=== PATIENT | female | born 1940 | race Caucasian/White ===

== ENCOUNTER 2017-05-22 10:27 | Emergency (ER) | payer MEDICARE, OTHER ==
[2017-05-22] MEDS: morphine 4 MG/ML VIAL IV (10:28)
[2017-05-22] MEDS ORDERED: HYOSCYAMINE 0.125 MG SUBL TAB SL (11:30)
[2017-05-22] MEDS ORDERED: morphine (DRIP) 100 MG/100 ML 100 ML IV (11:30)
[2017-05-22] MEDS ORDERED: BISACODYL 10 MG SUPP PR (11:30)
[2017-05-22] MEDS ORDERED: HALOPERIDOL 5 MG INJ IM (11:30)
[2017-05-22] MEDS ORDERED: HYDROmorphONE 0.5 MG/0.5 ML SYG IV (11:30)
[2017-05-22] MEDS ORDERED: ACETAMINOPHEN 325 MG TAB PO (11:30)
[2017-05-22] MEDS ORDERED: ONDANSETRON 4 MG INJ IV ×2 (11:30)
[2017-05-22] MEDS ORDERED: ALBUTEROL/IPRATROPIUM (NEB) 3 ML AMP HHN (11:30)
[2017-05-22] MEDS ORDERED: KETOROLAC 15 MG INJ IV (11:30)
[2017-05-22] MEDS ORDERED: LORAZEPAM 2 MG INJ IV ×2 (11:30)
[2017-05-22] MEDS ORDERED: HYDROCODONE/APAP (10/325) TAB PO (12:00)
[2017-05-22] MEDS: morphine (DRIP) 100 MG/100 ML 100 ML IV (12:05)
[2017-05-22] MEDS: ARTIFICIAL TEARS 15 ML OPH BOTH EYES (12:23)
[2017-05-22] MEDS: DIMETHICONE STICK TOP (12:24)
[2017-05-22] MEDS: SOD CHLORIDE 0.9% 1,000 ML IV (12:25)
[2017-05-22] MEDS: SCOPOLAMINE 1.5 MG PATCH TRANSDERM (12:25)
== END 2017-05-22 17:55 | disposition home or self-care (01) ==
LOC: E/R 10:27
DX: R50.9 Fever, unspecified (principal); E03.9 Hypothyroidism, unspecified; R40.2142 Coma scale, eyes open, spontaneous, at arrival to emergency department; R40.2222 Coma scale, best verbal response, incomprehensible words, at arrival to emergency department; R40.2362 Coma scale, best motor response, obeys commands, at arrival to emergency department; N18.6 End stage renal disease; Z66 Do not resuscitate; Z79.82 Long term (current) use of aspirin
CPT/HCPCS: 94002; 99284-25

== ENCOUNTER 2017-05-31 12:53 | Inpatient (IN) | payer MEDICARE, OTHER ==
[2017-05-31 13:37] LABS: ADD MAN DIFF? NO
[2017-05-31 13:45] LABS: ABNORMAL IP MESSAGE 1; BASOPHILS % 0.1 % (0.0-2.0); EOSINOPHILS % 0.2 % (0.0-7.0); HEMATOCRIT 18.7 % (37.0-47.0); LYMPHOCYTES # 1.1 10^3/ul (0.8-2.9); LYMPHOCYTES % 5.1 % (15.0-51.0); MEAN CORPUSCULAR HEMOGLOBIN 27.5 pg (29.0-33.0); MEAN CORPUSCULAR VOLUME 88.6 fl (82.0-101.0); MEAN PLATELET VOLUME 10.9 fl (7.4-10.4); MONOCYTES % 4.6 % (0.0-11.0); NEUTROPHIL # 19.1 10^3/ul (1.6-7.5); NEUTROPHILS % 86.5 % (39.0-77.0); NUCLEATED RED BLOOD CELLS% 0.1 /100WBC (0.0-0.0); PLATELET COUNT 265 10^3/UL (140-415); RED BLOOD COUNT 2.11 10^6/ul (4.20-5.40); RED CELL DISTRIBUTION WIDTH 19.5 % (11.5-14.5)
[2017-05-31 13:47] LABS: HEMOGLOBIN 5.8 g/dl (12.0-16.0); PATH REVIEW? YES; POSITIVE DIFF @See below
[2017-05-31 13:58] LABS: ALANINE AMINOTRANSFERASE 73 IU/L (13-69); ALBUMIN/GLOBULIN RATIO 1.07; ALKALINE PHOSPHATASE 242 IU/L (42-121); ANION GAP 19 (8-16); ASPARTATE AMINO TRANSFERASE 46 IU/L (15-46); BLOOD UREA NITROGEN 103 mg/dl (7-20); CALCIUM 11.4 mg/dl (8.4-10.2); CARBON DIOXIDE 21 mmol/L (21-31); CHLORIDE 92 mmol/L (97-110); CREATININE 1.22 mg/dl (0.44-1.00); GLUCOSE 102 mg/dl (70-220); POTASSIUM 3.6 mmol/L (3.5-5.1); SODIUM 128 mmol/L (135-144); TOTAL PROTEIN 5.8 g/dl (6.1-8.1)
[2017-05-31 14:02] LABS: INR 1.13; PROTIME 14.7 Sec (11.9-14.9); PT RATIO 1.1
[2017-05-31 14:03] LABS: PARTIAL THROMBOPLASTIN TIME 43.1 Sec (25.0-35.0)
[2017-05-31 14:09] LABS: TROPONIN-I < 0.012 ng/ml (0.00-0.12)
[2017-05-31] MEDS: PANTOPRAZOLE IV 80 MG in SOD CHLORIDE 0.9% 100 ML IVPB (14:09)
[2017-05-31] MEDS: PANTOPRAZOLE IV 80 MG in SOD CHLORIDE 0.9% 100 ML IV (14:16)
[2017-05-31] MEDS: CEFEPIME 1GM/50 ML (PMX) 50 ML IVPB (16:47)
[2017-05-31] MEDS: VANCOMYCIN 1 GM (PMX) 250 ML IVPB (17:19)
[2017-05-31] MEDS: SODIUM CHLORIDE 0.9% 1L BAG IV* (17:54)
[2017-05-31] MEDS ORDERED: ACETAMINOPHEN 325 MG TAB PO ×3 (18:00→20:00)
[2017-05-31] MEDS ORDERED: ONDANSETRON 4 MG INJ IV ×3 (18:00→20:00)
[2017-05-31 18:41] LABS: LACTIC ACID 1.7 mmol/L (0.5-2.0)
[2017-05-31] MEDS ORDERED: NACL 0.9% 3 ML SYG IV (20:00)
[2017-05-31 20:18] LABS: LACTATE DEHYDROGENASE 323 IU/L (313-618)
[2017-05-31] MEDS: SOD CHLORIDE 0.9% 1,000 ML IV (20:20)
[2017-05-31] MEDS ORDERED: VANCOMYCIN IV PER PHARMACY XX (20:30)
[2017-05-31] MEDS: DEXTROSE 5%-0.45% NACL 1,000 ML IV (22:21)
[2017-06-01] MEDS: SOD CHLORIDE 0.9% 500 ML IV (00:30)
[2017-06-01] MEDS: CEFEPIME 1GM/50 ML (PMX) 50 ML IVPB ×2 (01:07→08:33)
[2017-06-01] MEDS: NORepinephrine 8MG/250 ML (PMX 250 ML IV (02:29)
[2017-06-01] MEDS: SOD CHLORIDE 0.9% 1,000 ML IV (04:38)
[2017-06-01 05:37] LABS: ADD MAN DIFF? NO
[2017-06-01 05:38] LABS: WHITE BLOOD COUNT 34.1 10^3/ul (4.8-10.8)
[2017-06-01 05:38] LABS: ABNORMAL IP MESSAGE 1; BASOPHIL # 0.1 10^3/ul (0.0-0.1); BASOPHILS % 0.1 % (0.0-2.0); HEMATOCRIT 23.7 % (37.0-47.0); HEMOGLOBIN 7.9 g/dl (12.0-16.0); LYMPHOCYTES # 1.6 10^3/ul (0.8-2.9); LYMPHOCYTES % 4.6 % (15.0-51.0); MEAN CORPUSCULAR HEMOGLOBIN 28.5 pg (29.0-33.0); MEAN CORPUSCULAR HGB CONC 33.3 g/dl (32.0-37.0); MEAN CORPUSCULAR VOLUME 85.6 fl (82.0-101.0); MEAN PLATELET VOLUME 10.6 fl (7.4-10.4); MONOCYTE # 1.2 10^3/ul (0.3-0.9); MONOCYTES % 3.5 % (0.0-11.0); NEUTROPHIL # 30.4 10^3/ul (1.6-7.5); PLATELET COUNT 306 10^3/UL (140-415); RED BLOOD COUNT 2.77 10^6/ul (4.20-5.40); RED CELL DISTRIBUTION WIDTH 17.3 % (11.5-14.5)
[2017-06-01 05:40] LABS: POSITIVE DIFF @See below
[2017-06-01 06:12] LABS: ALANINE AMINOTRANSFERASE 67 IU/L (13-69); ALBUMIN 2.8 g/dl (3.3-4.9); ALKALINE PHOSPHATASE 261 IU/L (42-121); ANION GAP 20 (8-16); ASPARTATE AMINO TRANSFERASE 51 IU/L (15-46); BLOOD UREA NITROGEN 107 mg/dl (7-20); CARBON DIOXIDE 16 mmol/L (21-31); CHLORIDE 98 mmol/L (97-110); CREATININE 1.09 mg/dl (0.44-1.00); GLUCOSE 92 mg/dl (70-220); SODIUM 131 mmol/L (135-144); TOTAL PROTEIN 5.6 g/dl (6.1-8.1)
[2017-06-01] MEDS: PANTOPRAZOLE 40 MG INJ IV (06:21)
[2017-06-01 08:21] LABS: AADO2 Arterial 165.7 mmHg (7.0-24.0); Allen Test ACCEPTAB; Arterial Base Excess -11.8 mmol/L (-3.0-3); Arterial Blood Gas Oxygen Sat 93.2 mmHG (95.0-100.0); Arterial COHb 0.1 % (0.0-3.0); Arterial Fraction of Oxyhgb 92.6 % (93.0-99.0); Arterial HCO3 14.7 mmol/L (22.0-26.0); Arterial MetHb 0.5 % (0.0-1.5); Arterial Total Hemglobin 8.4 g/dl (12.0-18.0); Arterial pCO2 35.9 mmhg (35-45); MODE VENT - AC; Site Right Radial
[2017-06-01 10:21] LABS: HAAIG REFLEX REFLEX FILED
[2017-06-01] MEDS ORDERED: ALBUMIN HUMAN 25% 100 ML IV (11:00)
[2017-06-01 12:14] LABS: IMMEDIATE SPIN CROSSMATCH 1 4
[2017-06-01] MEDS ORDERED: VANCOMYCIN 1.5 GM in SOD CHLORIDE 0.9% 250 ML IVPB (13:00)
[2017-06-01 14:22] LABS: PATH REVIEW CH
[2017-06-01] MEDS ORDERED: TOBRAMYCIN IV PER PHARMACY XX (14:30)
[2017-06-01] MEDS: HEPARIN 1000 UNITS/ML 10 ML INJ CATHETER (14:38)
[2017-06-01 15:23] LABS: LACTIC ACID < 0.5 mmol/L (0.5-2.0)
[2017-06-01] MEDS: TOBRAMYCIN 140 MG in DEXTROSE 5% 100 ML IVPB (15:30)
[2017-06-01] MEDS: PIPER-TAZO 2.25 GM (PMX) 50 ML IVPB ×2 (15:32→21:48)
[2017-06-01] MEDS: DEXTROSE 5%-0.45% NACL 1,000 ML IV (15:37)
[2017-06-01] MEDS: LINEZOLID 600 MG/D5W (PMX) 300 ML IVPB (16:55)
[2017-06-01 19:30] LABS: HEPATITIS B SURFACE ANTIGEN NEGATIVE (NEGATIVE)
[2017-06-01 19:48] LABS: HEPATITIS B CORE ANTIBODY NEGATIVE (NEGATIVE); HEPATITIS C VIRAL ANTIBODY NEGATIVE (NEGATIVE)
[2017-06-02] MEDS: LINEZOLID 600 MG/D5W (PMX) 300 ML IVPB ×3 (01:06→21:22)
[2017-06-02] MEDS: PIPER-TAZO 2.25 GM (PMX) 50 ML IVPB ×3 (05:22→21:30)
[2017-06-02] MEDS: PANTOPRAZOLE 40 MG INJ IV (05:22)
[2017-06-02 06:02] LABS: ADD MAN DIFF? NO
[2017-06-02 06:07] LABS: WHITE BLOOD COUNT 14.3 10^3/ul (4.8-10.8)
[2017-06-02 06:07] LABS: BASOPHILS % 0.2 % (0.0-2.0); EOSINOPHILS % 0.3 % (0.0-7.0); HEMATOCRIT 28.8 % (37.0-47.0); HEMOGLOBIN 9.6 g/dl (12.0-16.0); LYMPHOCYTES % 7.3 % (15.0-51.0); MEAN CORPUSCULAR HGB CONC 33.3 g/dl (32.0-37.0); MEAN PLATELET VOLUME 10.2 fl (7.4-10.4); MONOCYTE # 0.6 10^3/ul (0.3-0.9); MONOCYTES % 4.3 % (0.0-11.0); NEUTROPHIL # 12.2 10^3/ul (1.6-7.5); NEUTROPHILS % 85.1 % (39.0-77.0); NUCLEATED RED BLOOD CELLS% 0.1 /100WBC (0.0-0.0); PLATELET COUNT 227 10^3/UL (140-415); RED BLOOD COUNT 3.31 10^6/ul (4.20-5.40); RED CELL DISTRIBUTION WIDTH 17.3 % (11.5-14.5)
[2017-06-02 06:27] LABS: ADD UMIC YES; UR AMORPHOUS CRYSTAL FEW /HPF (NONE SEEN); UR ASCORBIC ACID NEGATIVE (NEGATIVE); UR BACTERIA FEW /HPF (NONE SEEN); UR BILIRUBIN (Dip) NEGATIVE (NEGATIVE); UR BLOOD (Dip) 1+ mg/dL (NEGATIVE); UR CLARITY CLOUDY (CLEAR); UR COLOR YELLOW (YELLOW); UR GLUCOSE (Dip) NEGATIVE (NEGATIVE); UR KETONES (Dip) NEGATIVE (NEGATIVE); UR LEUKOCYTE ESTERASE (Dip) 3+ Leu/ul (NEGATIVE); UR NITRITE (Dip) NEGATIVE (NEGATIVE); UR NONSQUAMOUS EPITHELIAL CELL 3 /HPF (NONE SEEN); UR RBC 5 /HPF (0-5); UR SPECIFIC GRAVITY (Dip) 1.011 (1.003-1.030); UR SQUAMOUS EPITHELIAL CELL FEW /HPF (FEW); UR TOTAL PROTEIN (Dip) 2+ mg/dl (NEGATIVE); UR UROBILINOGEN (Dip) NEGATIVE (NEGATIVE); UR WBC 72 /HPF (0-5)
[2017-06-02 06:40] LABS: OCCULT BLOOD STOOL POSITIVE (NEGATIVE)
[2017-06-02 06:45] LABS: ANION GAP 17 (8-16); BLOOD UREA NITROGEN 57 mg/dl (7-20); CALCIUM 8.6 mg/dl (8.4-10.2); CARBON DIOXIDE 21 mmol/L (21-31); CHLORIDE 99 mmol/L (97-110); CREATININE 0.74 mg/dl (0.44-1.00); GLUCOSE 88 mg/dl (70-220); POTASSIUM 3.5 mmol/L (3.5-5.1); SODIUM 133 mmol/L (135-144)
[2017-06-02 08:05] LABS: AADO2 Arterial 151.4 mmHg (7.0-24.0); Allen Test ACCEPTAB; Arterial Base Excess -2.6 mmol/L (-3.0-3); Arterial Blood Gas Oxygen Sat 96.5 mmHG (95.0-100.0); Arterial COHb 0.3 % (0.0-3.0); Arterial Fraction of Oxyhgb 95.9 % (93.0-99.0); Arterial HCO3 22.4 mmol/L (22.0-26.0); Arterial MetHb 0.3 % (0.0-1.5); Arterial Total Hemglobin 10.4 g/dl (12.0-18.0); Arterial pCO2 39.3 mmhg (35-45); MODE VENT - AC; Site Right Radial
[2017-06-02] MEDS ORDERED: CEFEPIME 1GM/50 ML (PMX) 50 ML IVPB (09:00)
[2017-06-02 09:37] LABS: LACTIC ACID 0.8 mmol/L (0.5-2.0)
[2017-06-02] MEDS: HEPARIN 1000 UNITS/ML 10 ML INJ CATHETER (11:07)
[2017-06-02] MEDS: TOBRAMYCIN 100 MG in DEXTROSE 5% 100 ML IVPB (14:00)
[2017-06-02] MEDS: DEXTROSE 5%-0.45% NACL 1,000 ML IV (14:47)
[2017-06-02] MEDS: PEG/ELECTROLYTES 4L BTL PO (14:56)
[2017-06-02] MEDS ORDERED: NORepinephrine 16 MG in SOD CHLORIDE 0.9% 484 ML IV (15:00)
[2017-06-02] MEDS: LORAZEPAM 2 MG INJ IV (21:29)
[2017-06-03 06:18] LABS: INR 1.07; PT RATIO 1.1
[2017-06-03 06:19] LABS: PARTIAL THROMBOPLASTIN TIME 26.2 Sec (25.0-35.0)
[2017-06-03 06:24] LABS: ANION GAP 17 (8-16); BLOOD UREA NITROGEN 27 mg/dl (7-20); CALCIUM 8.3 mg/dl (8.4-10.2); CARBON DIOXIDE 27 mmol/L (21-31); CHLORIDE 97 mmol/L (97-110); CREATININE 0.51 mg/dl (0.44-1.00); GLUCOSE 74 mg/dl (70-220); POTASSIUM 3.3 mmol/L (3.5-5.1); SODIUM 138 mmol/L (135-144)
[2017-06-03] MEDS: PANTOPRAZOLE 40 MG INJ IV (06:38)
[2017-06-03] MEDS: PIPER-TAZO 2.25 GM (PMX) 50 ML IVPB ×3 (06:38→21:32)
[2017-06-03] MEDS: LINEZOLID 600 MG/D5W (PMX) 300 ML IVPB ×2 (08:26→21:32)
[2017-06-03 09:05] LABS: ADD MAN DIFF? NO
[2017-06-03 09:12] LABS: BASOPHILS % 0.3 % (0.0-2.0); EOSINOPHILS # 0.1 10^3/ul (0.0-0.5); EOSINOPHILS % 0.6 % (0.0-7.0); HEMOGLOBIN 10.4 g/dl (12.0-16.0); LYMPHOCYTES # 1.2 10^3/ul (0.8-2.9); LYMPHOCYTES % 9.9 % (15.0-51.0); MEAN CORPUSCULAR HEMOGLOBIN 28.7 pg (29.0-33.0); MEAN CORPUSCULAR HGB CONC 33.5 g/dl (32.0-37.0); MEAN CORPUSCULAR VOLUME 85.6 fl (82.0-101.0); MEAN PLATELET VOLUME 9.4 fl (7.4-10.4); MONOCYTE # 0.7 10^3/ul (0.3-0.9); MONOCYTES % 6.1 % (0.0-11.0); NEUTROPHIL # 9.4 10^3/ul (1.6-7.5); NEUTROPHILS % 80.6 % (39.0-77.0); PLATELET COUNT 235 10^3/UL (140-415); RED BLOOD COUNT 3.62 10^6/ul (4.20-5.40); RED CELL DISTRIBUTION WIDTH 17.2 % (11.5-14.5)
[2017-06-03 09:12] LABS: WHITE BLOOD COUNT 11.7 10^3/ul (4.8-10.8)
[2017-06-03 09:31] LABS: ALANINE AMINOTRANSFERASE 139 IU/L (13-69); ALBUMIN 2.8 g/dl (3.3-4.9); ALKALINE PHOSPHATASE 177 IU/L (42-121); ANION GAP 25 (8-16); ASPARTATE AMINO TRANSFERASE 132 IU/L (15-46); BLOOD UREA NITROGEN 26 mg/dl (7-20); CALCIUM 7.6 mg/dl (8.4-10.2); CARBON DIOXIDE 16 mmol/L (21-31); CHLORIDE 94 mmol/L (97-110); GLUCOSE 97 mg/dl (70-220); SODIUM 132 mmol/L (135-144); TOTAL PROTEIN 5.6 g/dl (6.1-8.1)
[2017-06-03] MEDS: POTASSIUM CHLORIDE 50 ML IVPB ×3 (11:11→15:20)
[2017-06-03] MEDS: DEXTROSE 5%-0.45% NACL 1,000 ML IV ×2 (15:22)
[2017-06-03] MEDS ORDERED: PROPOFOL 20 ML (19:17)
[2017-06-04 05:34] LABS: ADD MAN DIFF? NO; BASOPHIL # 0.1 10^3/ul (0.0-0.1); BASOPHILS % 0.6 % (0.0-2.0); EOSINOPHILS # 0.1 10^3/ul (0.0-0.5); EOSINOPHILS % 0.9 % (0.0-7.0); HEMATOCRIT 32.7 % (37.0-47.0); LYMPHOCYTES # 1.2 10^3/ul (0.8-2.9); LYMPHOCYTES % 10.2 % (15.0-51.0); MEAN CORPUSCULAR HEMOGLOBIN 29.5 pg (29.0-33.0); MEAN CORPUSCULAR HGB CONC 33.6 g/dl (32.0-37.0); MEAN CORPUSCULAR VOLUME 87.7 fl (82.0-101.0); MEAN PLATELET VOLUME 9.7 fl (7.4-10.4); MONOCYTE # 0.8 10^3/ul (0.3-0.9); NEUTROPHIL # 9.5 10^3/ul (1.6-7.5); NEUTROPHILS % 78.8 % (39.0-77.0); PLATELET COUNT 235 10^3/UL (140-415); RED BLOOD COUNT 3.73 10^6/ul (4.20-5.40)
[2017-06-04 05:34] LABS: WHITE BLOOD COUNT 12.1 10^3/ul (4.8-10.8)
[2017-06-04] MEDS: PANTOPRAZOLE 40 MG INJ IV (05:47)
[2017-06-04] MEDS: PIPER-TAZO 2.25 GM (PMX) 50 ML IVPB ×3 (05:48→21:59)
[2017-06-04 06:05] LABS: MAGNESIUM 1.9 mg/dl (1.7-2.5)
[2017-06-04 06:18] LABS: ALANINE AMINOTRANSFERASE 153 IU/L (13-69); ALBUMIN 2.8 g/dl (3.3-4.9); ALBUMIN/GLOBULIN RATIO 1.03; ALKALINE PHOSPHATASE 180 IU/L (42-121); ANION GAP 18 (8-16); ASPARTATE AMINO TRANSFERASE 172 IU/L (15-46); BLOOD UREA NITROGEN 30 mg/dl (7-20); CALCIUM 8.6 mg/dl (8.4-10.2); CARBON DIOXIDE 23 mmol/L (21-31); CHLORIDE 97 mmol/L (97-110); CREATININE 0.61 mg/dl (0.44-1.00); GLUCOSE 96 mg/dl (70-220); SODIUM 134 mmol/L (135-144); TOTAL PROTEIN 5.5 g/dl (6.1-8.1)
[2017-06-04] MEDS: LINEZOLID 600 MG/D5W (PMX) 300 ML IVPB ×2 (08:28→20:14)
[2017-06-04] MEDS: DEXTROSE 5%-0.45% NACL 1,000 ML IV (08:35)
[2017-06-04] MEDS ORDERED: GLUCOSE GEL 15 GRAM TUBE BUCCAL (09:00)
[2017-06-04] MEDS: Insulin NOVOLOG SS MILD Algorithm (NPO/TPN/ENTERAL FEEDS) SC ×4 (09:00→20:14)
[2017-06-04] MEDS ORDERED: DEXTROSE 50% 50 ML SYRINGE IV ×2 (09:00)
[2017-06-04] MEDS ORDERED: INSULIN ASPART [NOVOLOG] 3 ML PEN SC (09:00)
[2017-06-04] MEDS ORDERED: GLUCAGON 1 MG INJ IM (09:00)
[2017-06-04] MEDS ORDERED: GLUCOSE GEL 15 GRAM TUBE PO ×2 (09:00)
[2017-06-04] MEDS: HEPARIN 1000 UNITS/ML 10 ML INJ CATHETER (18:37)
[2017-06-04] MEDS: morphine 2 MG INJ IV (19:43)
[2017-06-05] MEDS: Insulin NOVOLOG SS MILD Algorithm (NPO/TPN/ENTERAL FEEDS) SC ×6 (00:37→20:41)
[2017-06-05] MEDS: ACCU-CHEK XX (02:00)
[2017-06-05] MEDS: DEXTROSE 5%-0.45% NACL 1,000 ML IV ×2 (02:00→09:34)
[2017-06-05] MEDS: PIPER-TAZO 2.25 GM (PMX) 50 ML IVPB ×3 (05:28→23:27)
[2017-06-05] MEDS: PANTOPRAZOLE 40 MG INJ IV (05:28)
[2017-06-05 05:38] LABS: ADD MAN DIFF? NO
[2017-06-05 06:05] LABS: INR 1.03; PROTIME 13.6 Sec (11.9-14.9); PT RATIO 1.1
[2017-06-05 06:10] LABS: ALANINE AMINOTRANSFERASE 105 IU/L (13-69); ALBUMIN 2.2 g/dl (3.3-4.9); ALBUMIN/GLOBULIN RATIO 0.81; ALKALINE PHOSPHATASE 219 IU/L (42-121); ANION GAP 14 (8-16); ASPARTATE AMINO TRANSFERASE 74 IU/L (15-46); BLOOD UREA NITROGEN 25 mg/dl (7-20); CALCIUM 8.3 mg/dl (8.4-10.2); CARBON DIOXIDE 25 mmol/L (21-31); CHLORIDE 98 mmol/L (97-110); CREATININE 0.47 mg/dl (0.44-1.00); GLUCOSE 98 mg/dl (70-220); POTASSIUM 3.4 mmol/L (3.5-5.1); SODIUM 134 mmol/L (135-144); TOTAL PROTEIN 4.9 g/dl (6.1-8.1)
[2017-06-05 08:20] LABS: BASOPHILS % 0.4 % (0.0-2.0); EOSINOPHILS # 0.1 10^3/ul (0.0-0.5); EOSINOPHILS % 0.8 % (0.0-7.0); HEMATOCRIT 29.3 % (37.0-47.0); HEMOGLOBIN 9.8 g/dl (12.0-16.0); LYMPHOCYTES # 1.1 10^3/ul (0.8-2.9); MEAN CORPUSCULAR HEMOGLOBIN 29.3 pg (29.0-33.0); MEAN CORPUSCULAR HGB CONC 33.4 g/dl (32.0-37.0); MEAN CORPUSCULAR VOLUME 87.7 fl (82.0-101.0); MEAN PLATELET VOLUME 9.5 fl (7.4-10.4); MONOCYTE # 0.7 10^3/ul (0.3-0.9); MONOCYTES % 6.7 % (0.0-11.0); NEUTROPHIL # 8.8 10^3/ul (1.6-7.5); NEUTROPHILS % 80.5 % (39.0-77.0); PLATELET COUNT 210 10^3/UL (140-415); RED BLOOD COUNT 3.34 10^6/ul (4.20-5.40); RED CELL DISTRIBUTION WIDTH 16.8 % (11.5-14.5)
[2017-06-05 08:20] LABS: WHITE BLOOD COUNT 10.9 10^3/ul (4.8-10.8)
[2017-06-05] MEDS: POTASSIUM CHLORIDE 20 MEQ POWDER FOR ORAL SOLN GTB (11:41)
[2017-06-05] MEDS: TOBRAMYCIN 100 MG in DEXTROSE 5% 100 ML IVPB (12:39)
[2017-06-05] MEDS: hydrALAzine 20 MG INJ IV (20:41)
[2017-06-05] MEDS: BALSAM PERU/CASTOR OIL 60 GM TUBE TOP (20:41)
[2017-06-05] MEDS ORDERED: ACETAMINOPHEN 650MG/20.3ML CUP PO (23:30)
[2017-06-05] MEDS ORDERED: GUAIFENESIN/DM 5ML CUP GTB (23:30)
[2017-06-05] MEDS ORDERED: ONDANSETRON 4 MG TAB GTB (23:30)
[2017-06-05] MEDS ORDERED: HYDROCODONE/HOMATROPINE 5ML CUP GTB (23:30)
[2017-06-05] MEDS: BISACODYL 10 MG SUPP PR (23:47)
[2017-06-06] MEDS: Insulin NOVOLOG SS MILD Algorithm (NPO/TPN/ENTERAL FEEDS) SC ×6 (01:00→20:15)
[2017-06-06] MEDS: ACCU-CHEK XX (01:09)
[2017-06-06] MEDS: DEXTROSE 5%-0.45% NACL 1,000 ML IV (05:28)
[2017-06-06] MEDS: LANSOPRAZOLE 30 MG CAP GTB ×2 (05:28→18:12)
[2017-06-06] MEDS: PIPER-TAZO 2.25 GM (PMX) 50 ML IVPB (05:29)
[2017-06-06] MEDS: hydrALAzine 20 MG INJ IV (05:29)
[2017-06-06 05:54] LABS: ADD MAN DIFF? NO
[2017-06-06 06:42] LABS: ALANINE AMINOTRANSFERASE 80 IU/L (13-69); ALBUMIN 2.3 g/dl (3.3-4.9); ALBUMIN/GLOBULIN RATIO 0.79; ALKALINE PHOSPHATASE 190 IU/L (42-121); ANION GAP 17 (8-16); ASPARTATE AMINO TRANSFERASE 39 IU/L (15-46); BLOOD UREA NITROGEN 39 mg/dl (7-20); CARBON DIOXIDE 24 mmol/L (21-31); CHLORIDE 96 mmol/L (97-110); CREATININE 0.62 mg/dl (0.44-1.00); GLUCOSE 85 mg/dl (70-220); POTASSIUM 3.6 mmol/L (3.5-5.1); SODIUM 133 mmol/L (135-144); TOTAL PROTEIN 5.2 g/dl (6.1-8.1)
[2017-06-06 06:51] LABS: BASOPHIL # 0.1 10^3/ul (0.0-0.1); BASOPHILS % 0.4 % (0.0-2.0); EOSINOPHILS # 0.2 10^3/ul (0.0-0.5); EOSINOPHILS % 1.3 % (0.0-7.0); HEMATOCRIT 30.1 % (37.0-47.0); LYMPHOCYTES % 8.5 % (15.0-51.0); MEAN CORPUSCULAR HEMOGLOBIN 29.2 pg (29.0-33.0); MEAN CORPUSCULAR HGB CONC 33.2 g/dl (32.0-37.0); MEAN PLATELET VOLUME 10.5 fl (7.4-10.4); MONOCYTE # 0.7 10^3/ul (0.3-0.9); MONOCYTES % 5.6 % (0.0-11.0); NEUTROPHIL # 9.7 10^3/ul (1.6-7.5); NEUTROPHILS % 82.7 % (39.0-77.0); PLATELET COUNT 182 10^3/UL (140-415); POSITIVE DIFF @See below; RED BLOOD COUNT 3.42 10^6/ul (4.20-5.40); RED CELL DISTRIBUTION WIDTH 16.7 % (11.5-14.5)
[2017-06-06 06:51] LABS: WHITE BLOOD COUNT 11.7 10^3/ul (4.8-10.8)
[2017-06-06] MEDS: LEVOTHYROXINE 100 MCG TAB GTB (07:00)
[2017-06-06] MEDS: SENNA TAB GTB ×2 (08:52→20:13)
[2017-06-06] MEDS: ASPIRIN 81 MG TAB GTB (08:52)
[2017-06-06] MEDS: MULTIVIT/CA CARB/B CMPLX/FA TAB GTB (08:52)
[2017-06-06] MEDS: ASCORBIC ACID 500 MG TAB GTB (08:52)
[2017-06-06] MEDS: FLUOXETINE 20 MG CAP GTB (08:52)
[2017-06-06] MEDS: ENOXAPARIN 30 MG/0.3 ML SYG SC (08:53)
[2017-06-06] MEDS: HYPROMELLOSE 0.5% 15 ML OPH BOTH EYES ×2 (08:58→20:12)
[2017-06-06] MEDS ORDERED: NON-FORMULARY/PATIENT OWN MED (Protein Supplement (Promod) 30 ML) GTB (09:00)
[2017-06-06] MEDS: BALSAM PERU/CASTOR OIL 60 GM TUBE TOP (09:01)
[2017-06-06] MEDS: ACETYLCYSTEINE 20% 4 ML VIAL NEB ×2 (13:35→20:29)
[2017-06-06] MEDS ORDERED: ALBUMIN HUMAN 25% 100 ML IV (15:30)
[2017-06-06] MEDS: BISACODYL 10 MG SUPP PR (20:13)
[2017-06-07] MEDS: HEPARIN 1000 UNITS/ML 10 ML INJ CATHETER (00:30)
[2017-06-07] MEDS: Insulin NOVOLOG SS MILD Algorithm (NPO/TPN/ENTERAL FEEDS) SC ×4 (01:00→13:00)
[2017-06-07] MEDS: ACCU-CHEK XX (02:34)
[2017-06-07] MEDS: DEXTROSE 5%-0.45% NACL 1,000 ML IV (02:35)
[2017-06-07] MEDS: LANSOPRAZOLE 30 MG CAP GTB ×2 (05:45→18:09)
[2017-06-07 05:46] LABS: ADD MAN DIFF? NO
[2017-06-07 05:58] LABS: BASOPHIL # 0.1 10^3/ul (0.0-0.1); BASOPHILS % 0.5 % (0.0-2.0); EOSINOPHILS # 0.1 10^3/ul (0.0-0.5); EOSINOPHILS % 1.2 % (0.0-7.0); HEMATOCRIT 28.4 % (37.0-47.0); HEMOGLOBIN 9.5 g/dl (12.0-16.0); LYMPHOCYTES # 1.1 10^3/ul (0.8-2.9); MEAN CORPUSCULAR HEMOGLOBIN 29.1 pg (29.0-33.0); MEAN CORPUSCULAR HGB CONC 33.5 g/dl (32.0-37.0); MEAN CORPUSCULAR VOLUME 86.9 fl (82.0-101.0); MEAN PLATELET VOLUME 9.7 fl (7.4-10.4); MONOCYTE # 0.5 10^3/ul (0.3-0.9); MONOCYTES % 4.9 % (0.0-11.0); NEUTROPHIL # 8.8 10^3/ul (1.6-7.5); PLATELET COUNT 183 10^3/UL (140-415); RED BLOOD COUNT 3.27 10^6/ul (4.20-5.40); RED CELL DISTRIBUTION WIDTH 16.6 % (11.5-14.5)
[2017-06-07 05:58] LABS: WHITE BLOOD COUNT 10.7 10^3/ul (4.8-10.8)
[2017-06-07 07:12] LABS: ANION GAP 13 (8-16); BLOOD UREA NITROGEN 28 mg/dl (7-20); CALCIUM 8.9 mg/dl (8.4-10.2); CARBON DIOXIDE 26 mmol/L (21-31); CHLORIDE 97 mmol/L (97-110); CREATININE 0.52 mg/dl (0.44-1.00); GLUCOSE 98 mg/dl (70-220); POTASSIUM 3.5 mmol/L (3.5-5.1); SODIUM 132 mmol/L (135-144)
[2017-06-07] MEDS: LEVOTHYROXINE 100 MCG TAB GTB (07:58)
[2017-06-07] MEDS: ACETYLCYSTEINE 20% 4 ML VIAL NEB (09:00)
[2017-06-07] MEDS: FLUOXETINE 20 MG CAP GTB (09:03)
[2017-06-07] MEDS: ASPIRIN 81 MG TAB GTB (09:03)
[2017-06-07] MEDS: MULTIVIT/CA CARB/B CMPLX/FA TAB GTB (09:03)
[2017-06-07] MEDS: SENNA TAB GTB (09:03)
[2017-06-07] MEDS: ASCORBIC ACID 500 MG TAB GTB (09:03)
[2017-06-07] MEDS: HYPROMELLOSE 0.5% 15 ML OPH BOTH EYES (09:04)
[2017-06-07] MEDS: BALSAM PERU/CASTOR OIL 60 GM TUBE TOP (09:04)
[2017-06-07] MEDS: ENOXAPARIN 30 MG/0.3 ML SYG SC (09:09)
[2017-06-07] MEDS: TOBRAMYCIN 100 MG in DEXTROSE 5% 100 ML IVPB (11:42)
[2017-06-07] MEDS: INSULIN ASPART [NOVOLOG] 3 ML PEN SC (18:00)
== END 2017-06-07 19:50 | DRG 870 ==
LOC: ICU 17:40 → E/R 12:53 → ICU 06-01 01:35
PROC: 0DBH8ZZ Excision of Cecum, Via Natural or Artificial Opening Endoscopic (ICD-10-PCS; 2017-06-03 16:30)
PROC: 0DB68ZX Excision of Stomach, Via Natural or Artificial Opening Endoscopic, Diagnostic (ICD-10-PCS; 2017-06-03 16:30)
PROC: 5A1955Z Respiratory Ventilation, Greater than 96 Consecutive Hours (ICD-10-PCS; principal; 2017-06-03 20:20)
PROC: 5A1D70Z Performance of Urinary Filtration, Intermittent, Less than 6 Hours Per Day (ICD-10-PCS; 2017-06-03 20:20)
PROC: 4A133R1 Monitoring of Arterial Saturation, Peripheral, Percutaneous Approach (ICD-10-PCS; 2017-06-03 20:20)
PROC: 30233N1 Transfusion of Nonautologous Red Blood Cells into Peripheral Vein, Percutaneous Approach (ICD-10-PCS; 2017-06-03 20:20)
DX: A41.9 Sepsis, unspecified organism (principal); L89.154 Pressure ulcer of sacral region, stage 4; N18.6 End stage renal disease; R65.21 Severe sepsis with septic shock; J18.9 Pneumonia, unspecified organism; G92 Toxic encephalopathy; J96.11 Chronic respiratory failure with hypoxia; G82.20 Paraplegia, unspecified; Z99.11 Dependence on respirator [ventilator] status; I12.0 Hypertensive chronic kidney disease with stage 5 chronic kidney disease or end stage renal disease; D62 Acute posthemorrhagic anemia; E87.2 Acidosis; I50.32 Chronic diastolic (congestive) heart failure; Z93.0 Tracheostomy status; Z74.01 Bed confinement status; E03.9 Hypothyroidism, unspecified; I48.0 Paroxysmal atrial fibrillation; E66.9 Obesity, unspecified; Z68.36 Body mass index [BMI] 36.0-36.9, adult; E11.22 Type 2 diabetes mellitus with diabetic chronic kidney disease; R13.10 Dysphagia, unspecified; Z93.1 Gastrostomy status; I25.10 Atherosclerotic heart disease of native coronary artery without angina pectoris; Z99.2 Dependence on renal dialysis; I27.20 Pulmonary hypertension, unspecified; I07.1 Rheumatic tricuspid insufficiency; K29.50 Unspecified chronic gastritis without bleeding; K63.5 Polyp of colon; K64.4 Residual hemorrhoidal skin tags; K25.9 Gastric ulcer, unspecified as acute or chronic, without hemorrhage or perforation; Z79.82 Long term (current) use of aspirin; Z79.4 Long term (current) use of insulin
CPT/HCPCS: 36430; 36600; 71045; 80048; 80053; 81001; 82270; 82803; 82962; 83036; 83605; 83615; 83735; 84443; 84484; 85025; 85610; 85730; 86704; 86709; 86803; 86850; 86900; 86901; 86920; 87040; 87070; 87081; 87086; 87340; 87400; 88305; 88312; 89220; 90935; 93005; 93970; 94002; 94003; 94640; 96365; 96366; 96368; 99291-25

== ENCOUNTER 2017-06-13 22:43 | Inpatient (IN) | payer MEDICARE, OTHER ==
[2017-06-13 23:28] LABS: ADD MAN DIFF? NO
[2017-06-13] MEDS: SOD CHLORIDE 0.9% 1,000 ML IV (23:30)
[2017-06-13 23:32] LABS: WHITE BLOOD COUNT 9.2 10^3/ul (4.8-10.8)
[2017-06-13 23:32] LABS: ABNORMAL IP MESSAGE 1; BASOPHILS % 0.1 % (0.0-2.0); EOSINOPHILS % 0.3 % (0.0-7.0); HEMATOCRIT 17.1 % (37.0-47.0); LYMPHOCYTES # 0.8 10^3/ul (0.8-2.9); LYMPHOCYTES % 8.5 % (15.0-51.0); MEAN CORPUSCULAR HEMOGLOBIN 29.7 pg (29.0-33.0); MEAN CORPUSCULAR HGB CONC 32.2 g/dl (32.0-37.0); MEAN CORPUSCULAR VOLUME 92.4 fl (82.0-101.0); MEAN PLATELET VOLUME 10.9 fl (7.4-10.4); MONOCYTE # 0.4 10^3/ul (0.3-0.9); MONOCYTES % 4.8 % (0.0-11.0); NEUTROPHIL # 7.8 10^3/ul (1.6-7.5); NEUTROPHILS % 84.7 % (39.0-77.0); NUCLEATED RED BLOOD CELLS% 0.2 /100WBC (0.0-0.0); PLATELET COUNT 150 10^3/UL (140-415); RED BLOOD COUNT 1.85 10^6/ul (4.20-5.40); RED CELL DISTRIBUTION WIDTH 18.2 % (11.5-14.5)
[2017-06-13 23:51] LABS: ALANINE AMINOTRANSFERASE 30 IU/L (13-69); ALBUMIN 2.7 g/dl (3.3-4.9); ALBUMIN/GLOBULIN RATIO 1.03; ALKALINE PHOSPHATASE 188 IU/L (42-121); ANION GAP 11 (8-16); ASPARTATE AMINO TRANSFERASE 17 IU/L (15-46); BLOOD UREA NITROGEN 27 mg/dl (7-20); CALCIUM 8.7 mg/dl (8.4-10.2); CARBON DIOXIDE 29 mmol/L (21-31); CHLORIDE 99 mmol/L (97-110); CREATININE 0.55 mg/dl (0.44-1.00); GLUCOSE 84 mg/dl (70-220); SODIUM 136 mmol/L (135-144); TOTAL PROTEIN 5.3 g/dl (6.1-8.1)
[2017-06-13 23:52] LABS: LACTIC ACID 1.1 mmol/L (0.5-2.0)
[2017-06-13 23:57] LABS: POTASSIUM 2.6 mmol/L (3.5-5.1)
[2017-06-14 00:07] LABS: POSITIVE DIFF @See below; TROPONIN-I < 0.012 ng/ml (0.00-0.12)
[2017-06-14 00:08] LABS: HEMOGLOBIN 5.5 g/dl (12.0-16.0); INR 1.07; PT RATIO 1.1
[2017-06-14 00:09] LABS: PARTIAL THROMBOPLASTIN TIME 46.8 Sec (25.0-35.0)
[2017-06-14] MEDS: POTASSIUM CHLORIDE 100 ML IVPB ×4 (00:35→03:54)
[2017-06-14 02:50] LABS: LACTIC ACID 1.3 mmol/L (0.5-2.0)
[2017-06-14 04:00] LABS: ADD UMIC YES; UR ASCORBIC ACID NEGATIVE (NEGATIVE); UR BACTERIA FEW /HPF (NONE SEEN); UR BILIRUBIN (Dip) NEGATIVE (NEGATIVE); UR BLOOD (Dip) 1+ mg/dL (NEGATIVE); UR BUDDING YEAST FEW /HPF (NONE SEEN); UR CLARITY TURBID (CLEAR); UR COLOR AMBER (YELLOW); UR GLUCOSE (Dip) NEGATIVE (NEGATIVE); UR KETONES (Dip) NEGATIVE (NEGATIVE); UR LEUKOCYTE ESTERASE (Dip) 2+ Leu/ul (NEGATIVE); UR NITRITE (Dip) NEGATIVE (NEGATIVE); UR NONSQUAMOUS EPITHELIAL CELL 15 /HPF (NONE SEEN); UR RBC 108 /HPF (0-5); UR SPECIFIC GRAVITY (Dip) 1.013 (1.003-1.030); UR SQUAMOUS EPITHELIAL CELL MANY /HPF (FEW); UR TOTAL PROTEIN (Dip) 2+ mg/dl (NEGATIVE); UR UROBILINOGEN (Dip) NEGATIVE (NEGATIVE); UR WBC > 182 /HPF (0-5)
[2017-06-14 05:37] LABS: IMMEDIATE SPIN CROSSMATCH 1 3
[2017-06-14] MEDS ORDERED: ONDANSETRON 4 MG INJ IV (12:30)
[2017-06-14] MEDS ORDERED: DEXTROSE 50% 50 ML SYRINGE IV ×2 (13:00)
[2017-06-14] MEDS ORDERED: GLUCAGON 1 MG INJ IM (13:00)
[2017-06-14] MEDS ORDERED: GLUCOSE GEL 15 GRAM TUBE BUCCAL (13:00)
[2017-06-14] MEDS ORDERED: D5-NS + KCL 20 MEQ 1,000 ML IV (13:00)
[2017-06-14] MEDS: INSULIN ASPART [NOVOLOG] 3 ML PEN SC ×2 (13:00→21:00)
[2017-06-14] MEDS ORDERED: GLUCOSE GEL 15 GRAM TUBE PO ×2 (13:00)
[2017-06-14] MEDS: PANTOPRAZOLE IV 80 MG in SOD CHLORIDE 0.9% 100 ML IV ×2 (14:15→14:41)
[2017-06-14] MEDS: POTASSIUM CHLORIDE 20 MEQ in DEXTROSE 5%-0.9% NACL 990 ML IV (14:29)
[2017-06-14] MEDS: PANTOPRAZOLE IV 80 MG in SOD CHLORIDE 0.9% 100 ML IVPB (15:00)
[2017-06-14 16:53] LABS: HEMOGLOBIN 9.9 g/dl (12.0-16.0)
[2017-06-14 17:43] LABS: RETICULOCYTE COUNT # 0.084 X10^6 (0.020-0.110); RETICULOCYTE COUNT % 2.5 % (0.5-1.5)
[2017-06-14 19:12] LABS: FOLATE > 20.0 ng/ml (2.8-20.0)
[2017-06-15] MEDS: INSULIN ASPART [NOVOLOG] 3 ML PEN SC ×7 (01:00→22:58)
[2017-06-15] MEDS: PANTOPRAZOLE IV 80 MG in SOD CHLORIDE 0.9% 100 ML IV ×2 (01:50→10:15)
[2017-06-15] MEDS: ACCU-CHEK XX (01:52)
[2017-06-15 05:57] LABS: ADD MAN DIFF? NO
[2017-06-15] MEDS ORDERED: PANTOPRAZOLE 40 MG INJ IV (06:00)
[2017-06-15 06:22] LABS: BASOPHIL # 0.1 10^3/ul (0.0-0.1); BASOPHILS % 0.6 % (0.0-2.0); EOSINOPHILS % 0.4 % (0.0-7.0); HEMATOCRIT 32.1 % (37.0-47.0); HEMOGLOBIN 10.8 g/dl (12.0-16.0); LYMPHOCYTES # 1.1 10^3/ul (0.8-2.9); LYMPHOCYTES % 10.6 % (15.0-51.0); MEAN CORPUSCULAR HEMOGLOBIN 30.3 pg (29.0-33.0); MEAN CORPUSCULAR HGB CONC 33.6 g/dl (32.0-37.0); MEAN CORPUSCULAR VOLUME 89.9 fl (82.0-101.0); MEAN PLATELET VOLUME 10.5 fl (7.4-10.4); MONOCYTE # 0.9 10^3/ul (0.3-0.9); NEUTROPHIL # 7.6 10^3/ul (1.6-7.5); NEUTROPHILS % 76.5 % (39.0-77.0); NUCLEATED RED BLOOD CELLS% 0.2 /100WBC (0.0-0.0); RED BLOOD COUNT 3.57 10^6/ul (4.20-5.40)
[2017-06-15 06:23] LABS: PLATELET COUNT 114 10^3/UL (140-415); POSITIVE DIFF @See below
[2017-06-15 06:40] LABS: ANION GAP 16 (8-16); BLOOD UREA NITROGEN 37 mg/dl (7-20); CALCIUM 9.1 mg/dl (8.4-10.2); CARBON DIOXIDE 23 mmol/L (21-31); CHLORIDE 103 mmol/L (97-110); CREATININE 0.62 mg/dl (0.44-1.00); GLUCOSE 85 mg/dl (70-220); MAGNESIUM 2.4 mg/dl (1.7-2.5); POTASSIUM 4.6 mmol/L (3.5-5.1); SODIUM 137 mmol/L (135-144)
[2017-06-15] MEDS: HEPARIN 1000 UNITS/ML 10 ML INJ CATHETER (11:30)
[2017-06-15] MEDS: POTASSIUM CHLORIDE 20 MEQ in DEXTROSE 5%-0.9% NACL 990 ML IV (11:51)
[2017-06-15] MEDS ORDERED: VANCOMYCIN IV PER PHARMACY XX (12:30)
[2017-06-15] MEDS ORDERED: VANCOMYCIN 2 GM in SOD CHLORIDE 0.9% 500 ML IVPB (13:30)
[2017-06-15] MEDS: VANCOMYCIN 2 GM in SOD CHLORIDE 0.9% 500 ML IVPB (14:24)
[2017-06-15] MEDS ORDERED: AMIKACIN IV PER PHARMACY XX (17:30)
[2017-06-15] MEDS ORDERED: GUAIFENESIN 20 MG/ML 5ML CUP PO (19:30)
[2017-06-15] MEDS ORDERED: LORAZEPAM 2 MG INJ IV (19:30)
[2017-06-15] MEDS: LORAZEPAM 2 MG INJ IV (19:36)
[2017-06-15] MEDS: GUAIFENESIN 20 MG/ML 5ML CUP GTB (19:37)
[2017-06-15] MEDS: AMIKACIN IVPB (22:50)
[2017-06-15] MEDS: SOD CHLORIDE 0.9% IVPB (22:50)
[2017-06-16] MEDS: INSULIN ASPART [NOVOLOG] 3 ML PEN SC ×4 (01:00→17:13)
[2017-06-16] MEDS: ACCU-CHEK XX (02:00)
[2017-06-16] MEDS ORDERED: PENDING SANTYL ORDER FOR WOUND CARE XX (02:00)
[2017-06-16] MEDS: PANTOPRAZOLE IV 80 MG in SOD CHLORIDE 0.9% 100 ML IV ×3 (03:07→09:38)
[2017-06-16] MEDS: POTASSIUM CHLORIDE 20 MEQ in DEXTROSE 5%-0.9% NACL 990 ML IV ×2 (05:42→09:13)
[2017-06-16 09:28] LABS: ADD MAN DIFF? NO
[2017-06-16 09:32] LABS: WHITE BLOOD COUNT 8.7 10^3/ul (4.8-10.8)
[2017-06-16 09:32] LABS: BASOPHIL # 0.1 10^3/ul (0.0-0.1); BASOPHILS % 0.6 % (0.0-2.0); EOSINOPHILS # 0.1 10^3/ul (0.0-0.5); EOSINOPHILS % 0.6 % (0.0-7.0); HEMATOCRIT 32.2 % (37.0-47.0); HEMOGLOBIN 10.7 g/dl (12.0-16.0); LYMPHOCYTES # 0.9 10^3/ul (0.8-2.9); LYMPHOCYTES % 10.8 % (15.0-51.0); MEAN CORPUSCULAR HEMOGLOBIN 30.1 pg (29.0-33.0); MEAN CORPUSCULAR HGB CONC 33.2 g/dl (32.0-37.0); MEAN CORPUSCULAR VOLUME 90.4 fl (82.0-101.0); MEAN PLATELET VOLUME 9.7 fl (7.4-10.4); MONOCYTE # 0.7 10^3/ul (0.3-0.9); MONOCYTES % 8.3 % (0.0-11.0); NEUTROPHIL # 6.8 10^3/ul (1.6-7.5); NEUTROPHILS % 78.1 % (39.0-77.0); NUCLEATED RED BLOOD CELLS% 0.3 /100WBC (0.0-0.0); PLATELET COUNT 129 10^3/UL (140-415); RED BLOOD COUNT 3.56 10^6/ul (4.20-5.40); RED CELL DISTRIBUTION WIDTH 17.2 % (11.5-14.5)
[2017-06-16 09:55] LABS: ANION GAP 12 (8-16); BLOOD UREA NITROGEN 19 mg/dl (7-20); CALCIUM 8.9 mg/dl (8.4-10.2); CARBON DIOXIDE 27 mmol/L (21-31); CHLORIDE 105 mmol/L (97-110); CREATININE 0.54 mg/dl (0.44-1.00); GLUCOSE 93 mg/dl (70-220); POTASSIUM 3.8 mmol/L (3.5-5.1); SODIUM 140 mmol/L (135-144)
[2017-06-17] MEDS: INSULIN ASPART [NOVOLOG] 3 ML PEN SC ×4 (00:58→17:15)
[2017-06-17] MEDS: POTASSIUM CHLORIDE 20 MEQ in DEXTROSE 5%-0.9% NACL 990 ML IV (05:41)
[2017-06-17] MEDS: COLLAGENASE 30 GM TUBE TOP ×2 (05:41→09:47)
[2017-06-17] MEDS: PANTOPRAZOLE IV 80 MG in SOD CHLORIDE 0.9% 100 ML IV (05:53)
[2017-06-17 06:24] LABS: VANCOMYCIN,RANDOM 19.4 ug/ml
[2017-06-17 12:21] LABS: HEMATOCRIT 30.8 % (37.0-47.0); HEMOGLOBIN 10.1 g/dl (12.0-16.0)
[2017-06-17] MEDS: SOD CHLORIDE 0.9% 250 ML IV (14:29)
[2017-06-17 15:04] LABS: ANION GAP 12 (8-16); BLOOD UREA NITROGEN 26 mg/dl (7-20); CALCIUM 8.2 mg/dl (8.4-10.2); CARBON DIOXIDE 24 mmol/L (21-31); CHLORIDE 109 mmol/L (97-110); CREATININE 0.67 mg/dl (0.44-1.00); GLUCOSE 259 mg/dl (70-220); MAGNESIUM 2.1 mg/dl (1.7-2.5); POTASSIUM 5.4 mmol/L (3.5-5.1); SODIUM 140 mmol/L (135-144)
[2017-06-17 15:14] LABS: TROPONIN-I < 0.012 ng/ml (0.00-0.12)
[2017-06-17 15:24] LABS: ADD MAN DIFF? NO
[2017-06-17 15:27] LABS: BASOPHILS % 0.4 % (0.0-2.0); EOSINOPHILS # 0.1 10^3/ul (0.0-0.5); HEMATOCRIT 25.5 % (37.0-47.0); HEMOGLOBIN 8.4 g/dl (12.0-16.0); LYMPHOCYTES # 0.8 10^3/ul (0.8-2.9); LYMPHOCYTES % 15.6 % (15.0-51.0); MEAN CORPUSCULAR HEMOGLOBIN 30.3 pg (29.0-33.0); MEAN CORPUSCULAR HGB CONC 32.9 g/dl (32.0-37.0); MEAN CORPUSCULAR VOLUME 92.1 fl (82.0-101.0); MEAN PLATELET VOLUME 10.2 fl (7.4-10.4); MONOCYTE # 0.3 10^3/ul (0.3-0.9); MONOCYTES % 6.9 % (0.0-11.0); NEUTROPHIL # 3.6 10^3/ul (1.6-7.5); NEUTROPHILS % 74.4 % (39.0-77.0); PLATELET COUNT 111 10^3/UL (140-415); RED BLOOD COUNT 2.77 10^6/ul (4.20-5.40); RED CELL DISTRIBUTION WIDTH 17.6 % (11.5-14.5)
[2017-06-17 15:27] LABS: WHITE BLOOD COUNT 4.8 10^3/ul (4.8-10.8)
[2017-06-17] MEDS: SOD CHLORIDE 0.9% 500 ML IV (15:48)
[2017-06-17] MEDS: ALBUMIN HUMAN 5% 250 ML IV (16:10)
[2017-06-17] MEDS: PANTOPRAZOLE 40 MG INJ IV (17:15)
[2017-06-17] MEDS ORDERED: NOREPINEPHRINE IV (20:30)
[2017-06-17] MEDS ORDERED: DEXTROSE 5% IV (20:30)
[2017-06-17 21:31] LABS: LACTIC ACID 2.4 mmol/L (0.5-2.0)
[2017-06-17] MEDS: metroNIDAZOLE 500 MG/NS (PMX) 100 ML IVPB (21:46)
[2017-06-18 05:47] LABS: ADD MAN DIFF? NO
[2017-06-18 05:55] LABS: WHITE BLOOD COUNT 5.6 10^3/ul (4.8-10.8)
[2017-06-18 05:55] LABS: BASOPHILS % 0.5 % (0.0-2.0); EOSINOPHILS # 0.1 10^3/ul (0.0-0.5); EOSINOPHILS % 1.1 % (0.0-7.0); HEMATOCRIT 27.8 % (37.0-47.0); LYMPHOCYTES # 1.1 10^3/ul (0.8-2.9); LYMPHOCYTES % 20.2 % (15.0-51.0); MEAN CORPUSCULAR HGB CONC 32.4 g/dl (32.0-37.0); MEAN CORPUSCULAR VOLUME 92.7 fl (82.0-101.0); MEAN PLATELET VOLUME 10.2 fl (7.4-10.4); MONOCYTE # 0.5 10^3/ul (0.3-0.9); MONOCYTES % 8.9 % (0.0-11.0); NEUTROPHIL # 3.8 10^3/ul (1.6-7.5); NEUTROPHILS % 67.5 % (39.0-77.0); PLATELET COUNT 110 10^3/UL (140-415); RED CELL DISTRIBUTION WIDTH 17.8 % (11.5-14.5)
[2017-06-18] MEDS: INSULIN ASPART [NOVOLOG] 3 ML PEN SC ×5 (06:00→23:19)
[2017-06-18] MEDS: PANTOPRAZOLE 40 MG INJ IV ×2 (06:06→18:00)
[2017-06-18] MEDS: metroNIDAZOLE 500 MG/NS (PMX) 100 ML IVPB ×3 (06:06→21:05)
[2017-06-18 06:23] LABS: ANION GAP 16 (8-16); BLOOD UREA NITROGEN 32 mg/dl (7-20); CALCIUM 8.8 mg/dl (8.4-10.2); CARBON DIOXIDE 25 mmol/L (21-31); CHLORIDE 106 mmol/L (97-110); CREATININE 0.75 mg/dl (0.44-1.00); GLUCOSE 93 mg/dl (70-220); POTASSIUM 4.9 mmol/L (3.5-5.1); SODIUM 142 mmol/L (135-144)
[2017-06-18] MEDS: COLLAGENASE 30 GM TUBE TOP (08:03)
[2017-06-18] MEDS ORDERED: ALBUMIN HUMAN 25% 100 ML IV (13:30)
[2017-06-18] MEDS: VANCOMYCIN 1 GM 250 ML IVPB (16:34)
[2017-06-18] MEDS: HEPARIN 1000 UNITS/ML 10 ML INJ CATHETER (16:34)
[2017-06-18] MEDS: POTASSIUM CHLORIDE 20 MEQ in DEXTROSE 5%-0.9% NACL 990 ML IV (21:20)
[2017-06-19] MEDS: metroNIDAZOLE 500 MG/NS (PMX) 100 ML IVPB ×3 (05:06→21:54)
[2017-06-19] MEDS: PANTOPRAZOLE 40 MG INJ IV ×2 (05:06→17:59)
[2017-06-19] MEDS: INSULIN ASPART [NOVOLOG] 3 ML PEN SC ×3 (05:10→18:00)
[2017-06-19] MEDS: COLLAGENASE 30 GM TUBE TOP ×2 (09:00→13:29)
[2017-06-19] MEDS: AMIKACIN 350 MG in SOD CHLORIDE 0.9% 100 ML IVPB (09:37)
[2017-06-19] MEDS: NACL 0.9% 3 ML SYG IV (09:42)
[2017-06-20 05:46] LABS: ADD MAN DIFF? NO
[2017-06-20 05:53] LABS: WHITE BLOOD COUNT 6.6 10^3/ul (4.8-10.8)
[2017-06-20 05:53] LABS: ABNORMAL IP MESSAGE 1; BASOPHILS % 0.6 % (0.0-2.0); EOSINOPHILS # 0.1 10^3/ul (0.0-0.5); EOSINOPHILS % 1.1 % (0.0-7.0); HEMOGLOBIN 10.1 g/dl (12.0-16.0); LYMPHOCYTES # 0.9 10^3/ul (0.8-2.9); LYMPHOCYTES % 13.8 % (15.0-51.0); MEAN CORPUSCULAR HEMOGLOBIN 29.7 pg (29.0-33.0); MEAN CORPUSCULAR HGB CONC 31.6 g/dl (32.0-37.0); MEAN CORPUSCULAR VOLUME 94.1 fl (82.0-101.0); MEAN PLATELET VOLUME 9.9 fl (7.4-10.4); MONOCYTE # 0.4 10^3/ul (0.3-0.9); MONOCYTES % 5.9 % (0.0-11.0); NEUTROPHIL # 5.1 10^3/ul (1.6-7.5); NEUTROPHILS % 77.5 % (39.0-77.0); PLATELET COUNT 96 10^3/UL (140-415); RED CELL DISTRIBUTION WIDTH 18.3 % (11.5-14.5)
[2017-06-20 05:55] LABS: POSITIVE DIFF @See below
[2017-06-20] MEDS: INSULIN ASPART [NOVOLOG] 3 ML PEN SC ×5 (06:00→23:58)
[2017-06-20 06:18] LABS: ALANINE AMINOTRANSFERASE 60 IU/L (13-69); ALBUMIN 2.6 g/dl (3.3-4.9); ALKALINE PHOSPHATASE 192 IU/L (42-121); ANION GAP 13 (8-16); ASPARTATE AMINO TRANSFERASE 38 IU/L (15-46); BLOOD UREA NITROGEN 32 mg/dl (7-20); CALCIUM 9.5 mg/dl (8.4-10.2); CARBON DIOXIDE 27 mmol/L (21-31); CHLORIDE 107 mmol/L (97-110); CREATININE 0.74 mg/dl (0.44-1.00); GLUCOSE 90 mg/dl (70-220); POTASSIUM 4.9 mmol/L (3.5-5.1); SODIUM 142 mmol/L (135-144); TOTAL PROTEIN 5.2 g/dl (6.1-8.1)
[2017-06-20] MEDS: PANTOPRAZOLE 40 MG INJ IV ×2 (06:25→17:12)
[2017-06-20] MEDS: metroNIDAZOLE 500 MG/NS (PMX) 100 ML IVPB ×3 (06:26→21:47)
[2017-06-20] MEDS: COLLAGENASE 30 GM TUBE TOP (08:59)
[2017-06-20] MEDS: morphine 2 MG INJ IV (15:33)
[2017-06-21] MEDS: PANTOPRAZOLE 40 MG INJ IV ×2 (05:44→17:26)
[2017-06-21] MEDS: metroNIDAZOLE 500 MG/NS (PMX) 100 ML IVPB ×3 (05:44→21:14)
[2017-06-21] MEDS: INSULIN ASPART [NOVOLOG] 3 ML PEN SC ×3 (05:47→17:30)
[2017-06-21 06:00] LABS: ADD MAN DIFF? NO
[2017-06-21 06:11] LABS: WHITE BLOOD COUNT 6.7 10^3/ul (4.8-10.8)
[2017-06-21 06:11] LABS: ABNORMAL IP MESSAGE 1; BASOPHILS % 0.5 % (0.0-2.0); EOSINOPHILS # 0.1 10^3/ul (0.0-0.5); EOSINOPHILS % 1.5 % (0.0-7.0); HEMATOCRIT 29.3 % (37.0-47.0); HEMOGLOBIN 9.2 g/dl (12.0-16.0); LYMPHOCYTES % 14.7 % (15.0-51.0); MEAN CORPUSCULAR HEMOGLOBIN 29.6 pg (29.0-33.0); MEAN CORPUSCULAR HGB CONC 31.4 g/dl (32.0-37.0); MEAN CORPUSCULAR VOLUME 94.2 fl (82.0-101.0); MEAN PLATELET VOLUME 10.3 fl (7.4-10.4); MONOCYTE # 0.3 10^3/ul (0.3-0.9); MONOCYTES % 5.1 % (0.0-11.0); NEUTROPHIL # 5.1 10^3/ul (1.6-7.5); NEUTROPHILS % 77.1 % (39.0-77.0); PLATELET COUNT 92 10^3/UL (140-415); RED BLOOD COUNT 3.11 10^6/ul (4.20-5.40); RED CELL DISTRIBUTION WIDTH 18.6 % (11.5-14.5)
[2017-06-21 06:34] LABS: VANCOMYCIN,RANDOM 21.6 ug/ml
[2017-06-21 06:35] LABS: ANION GAP 13 (8-16); BLOOD UREA NITROGEN 45 mg/dl (7-20); CALCIUM 9.7 mg/dl (8.4-10.2); CARBON DIOXIDE 27 mmol/L (21-31); CHLORIDE 106 mmol/L (97-110); GLUCOSE 84 mg/dl (70-220); POTASSIUM 5.4 mmol/L (3.5-5.1); SODIUM 141 mmol/L (135-144)
[2017-06-21 06:53] LABS: POSITIVE DIFF @See below
[2017-06-21] MEDS: COLLAGENASE 30 GM TUBE TOP (08:56)
[2017-06-21] MEDS: NA POLYST SULFON 15 GM/60 ML BTL PO (10:08)
[2017-06-21] MEDS: morphine 2 MG INJ IV (10:17)
[2017-06-21] MEDS: IPRATROPIUM (HFA) 12.9 GM INHALER INH (16:05)
[2017-06-21] MEDS: ALBUTEROL HFA 8 GM INHALER INH (16:06)
[2017-06-21 17:16] LABS: HEMATOCRIT 29.8 % (37.0-47.0); HEMOGLOBIN 9.6 g/dl (12.0-16.0)
[2017-06-22] MEDS: PANTOPRAZOLE 40 MG INJ IV ×2 (05:40→17:12)
[2017-06-22] MEDS: metroNIDAZOLE 500 MG/NS (PMX) 100 ML IVPB ×3 (05:40→21:21)
[2017-06-22] MEDS: INSULIN ASPART [NOVOLOG] 3 ML PEN SC ×4 (05:48→17:59)
[2017-06-22 07:04] LABS: ADD MAN DIFF? NO
[2017-06-22 07:36] LABS: ABNORMAL IP MESSAGE 1; BASOPHILS % 0.4 % (0.0-2.0); EOSINOPHILS # 0.1 10^3/ul (0.0-0.5); HEMATOCRIT 28.6 % (37.0-47.0); HEMOGLOBIN 9.1 g/dl (12.0-16.0); LYMPHOCYTES % 17.8 % (15.0-51.0); MEAN CORPUSCULAR HEMOGLOBIN 30.2 pg (29.0-33.0); MEAN CORPUSCULAR HGB CONC 31.8 g/dl (32.0-37.0); MONOCYTE # 0.4 10^3/ul (0.3-0.9); MONOCYTES % 7.2 % (0.0-11.0); NEUTROPHIL # 3.9 10^3/ul (1.6-7.5); NEUTROPHILS % 71.5 % (39.0-77.0); RED BLOOD COUNT 3.01 10^6/ul (4.20-5.40); RED CELL DISTRIBUTION WIDTH 18.5 % (11.5-14.5)
[2017-06-22 07:36] LABS: WHITE BLOOD COUNT 5.4 10^3/ul (4.8-10.8)
[2017-06-22 07:37] LABS: PLATELET COUNT 73 10^3/UL (140-415)
[2017-06-22 07:43] LABS: ANION GAP 15 (8-16); BLOOD UREA NITROGEN 57 mg/dl (7-20); CALCIUM 9.1 mg/dl (8.4-10.2); CARBON DIOXIDE 25 mmol/L (21-31); CHLORIDE 106 mmol/L (97-110); CREATININE 0.87 mg/dl (0.44-1.00); GLUCOSE 98 mg/dl (70-220); SODIUM 140 mmol/L (135-144)
[2017-06-22 07:50] LABS: POTASSIUM 5.5 mmol/L (3.5-5.1)
[2017-06-22] MEDS: HEPARIN 1000 UNITS/ML 10 ML INJ CATHETER (11:32)
[2017-06-22] MEDS: COLLAGENASE 30 GM TUBE TOP (12:22)
[2017-06-22] MEDS: LOSARTAN 25 MG TAB PO (12:22)
[2017-06-22] MEDS: AMIKACIN 350 MG in SOD CHLORIDE 0.9% 100 ML IVPB (14:18)
[2017-06-22] MEDS: VANCOMYCIN 1 GM 250 ML IVPB (17:12)
[2017-06-22 17:59] LABS: OCCULT BLOOD STOOL NEGATIVE (NEGATIVE)
[2017-06-22 18:12] LABS: PROCALCITONIN 0.96 ng/mL (<0.10)
[2017-06-23] MEDS: EPOETIN 3000 UNITS/1 ML INJ (ESRD) SC (01:47)
[2017-06-23] MEDS: metroNIDAZOLE 500 MG/NS (PMX) 100 ML IVPB ×3 (05:30→21:23)
[2017-06-23] MEDS: PANTOPRAZOLE 40 MG INJ IV ×2 (05:31→17:13)
[2017-06-23] MEDS: INSULIN ASPART [NOVOLOG] 3 ML PEN SC ×4 (05:33→17:16)
[2017-06-23 09:05] LABS: ADD MAN DIFF? NO
[2017-06-23 09:11] LABS: WHITE BLOOD COUNT 8.1 10^3/ul (4.8-10.8)
[2017-06-23 09:11] LABS: ABNORMAL IP MESSAGE 1; BASOPHILS % 0.4 % (0.0-2.0); EOSINOPHILS # 0.1 10^3/ul (0.0-0.5); EOSINOPHILS % 0.7 % (0.0-7.0); HEMATOCRIT 30.4 % (37.0-47.0); HEMOGLOBIN 9.6 g/dl (12.0-16.0); LYMPHOCYTES # 0.9 10^3/ul (0.8-2.9); LYMPHOCYTES % 11.4 % (15.0-51.0); MEAN CORPUSCULAR HEMOGLOBIN 30.1 pg (29.0-33.0); MEAN CORPUSCULAR HGB CONC 31.6 g/dl (32.0-37.0); MEAN CORPUSCULAR VOLUME 95.3 fl (82.0-101.0); MEAN PLATELET VOLUME 10.1 fl (7.4-10.4); MONOCYTE # 0.4 10^3/ul (0.3-0.9); MONOCYTES % 4.8 % (0.0-11.0); NEUTROPHIL # 6.6 10^3/ul (1.6-7.5); PLATELET COUNT 95 10^3/UL (140-415); RED BLOOD COUNT 3.19 10^6/ul (4.20-5.40); RED CELL DISTRIBUTION WIDTH 18.6 % (11.5-14.5)
[2017-06-23] MEDS: COLLAGENASE 30 GM TUBE TOP (09:14)
[2017-06-23] MEDS: LOSARTAN 25 MG TAB PO (09:16)
[2017-06-23 09:17] LABS: POSITIVE DIFF @See below
[2017-06-23 09:32] LABS: ANION GAP 12 (8-16); BLOOD UREA NITROGEN 49 mg/dl (7-20); CALCIUM 9.1 mg/dl (8.4-10.2); CARBON DIOXIDE 29 mmol/L (21-31); CHLORIDE 105 mmol/L (97-110); CREATININE 0.81 mg/dl (0.44-1.00); GLUCOSE 99 mg/dl (70-220); POTASSIUM 5.2 mmol/L (3.5-5.1); SODIUM 141 mmol/L (135-144)
[2017-06-23] MEDS: NA POLYST SULFON 15 GM/60 ML BTL PO (13:09)
[2017-06-23 17:00] LABS: ANION GAP 16 (8-16); BLOOD UREA NITROGEN 52 mg/dl (7-20); CALCIUM 9.2 mg/dl (8.4-10.2); CARBON DIOXIDE 27 mmol/L (21-31); CHLORIDE 103 mmol/L (97-110); GLUCOSE 112 mg/dl (70-220); POTASSIUM 5.1 mmol/L (3.5-5.1); SODIUM 141 mmol/L (135-144)
[2017-06-24] MEDS: INSULIN ASPART [NOVOLOG] 3 ML PEN SC
[2017-06-24] MEDS ORDERED: EPOETIN 3000 UNITS/1 ML INJ (ESRD) SC (17:00)
== END 2017-06-24 01:45 | DRG 811 ==
LOC: TEL 06-21 22:37 → E/R 22:43 → ICU 06-17 18:20 → TEL 06-14 01:27
PROC: 30233N1 Transfusion of Nonautologous Red Blood Cells into Peripheral Vein, Percutaneous Approach (ICD-10-PCS; principal; 2017-06-14)
PROC: 5A1955Z Respiratory Ventilation, Greater than 96 Consecutive Hours (ICD-10-PCS; 2017-06-15)
PROC: 5A1D70Z Performance of Urinary Filtration, Intermittent, Less than 6 Hours Per Day (ICD-10-PCS; 2017-06-15)
DX: D62 Acute posthemorrhagic anemia (principal); L89.154 Pressure ulcer of sacral region, stage 4; N18.6 End stage renal disease; I50.33 Acute on chronic diastolic (congestive) heart failure; I46.9 Cardiac arrest, cause unspecified; J15.1 Pneumonia due to Pseudomonas; G82.20 Paraplegia, unspecified; K92.2 Gastrointestinal hemorrhage, unspecified; J96.10 Chronic respiratory failure, unspecified whether with hypoxia or hypercapnia; R78.81 Bacteremia; N39.0 Urinary tract infection, site not specified; D63.8 Anemia in other chronic diseases classified elsewhere; Z93.0 Tracheostomy status; I48.91 Unspecified atrial fibrillation; E87.6 Hypokalemia; R13.10 Dysphagia, unspecified; Z93.1 Gastrostomy status; E11.9 Type 2 diabetes mellitus without complications; I27.20 Pulmonary hypertension, unspecified; I07.1 Rheumatic tricuspid insufficiency; E66.9 Obesity, unspecified; Z68.39 Body mass index [BMI] 39.0-39.9, adult; T68.XXXA Hypothermia, initial encounter; R00.1 Bradycardia, unspecified; B95.7 Other staphylococcus as the cause of diseases classified elsewhere; B96.1 Klebsiella pneumoniae [K. pneumoniae] as the cause of diseases classified elsewhere
CPT/HCPCS: 36415; 36430; 71045; 80048; 80053; 80202; 81001; 82270; 82607; 82728; 82746; 82962; 83605; 83735; 84145; 84443; 84484; 85014; 85018; 85025; 85045; 85610; 85730; 86644; 86850; 86900; 86901; 86920; 87040; 87070; 87081; 87086; 89220; 90935; 93005; 94002; 94003; 94640; 94770; 96361; 96374; 96375; 96376; 99291-25

== ENCOUNTER 2017-07-29 15:48 | Inpatient (IN) | payer MEDICARE, OTHER, BC ==
[2017-07-29 16:33] LABS: ABNORMAL IP MESSAGE 1; HEMATOCRIT 19.7 % (37.0-47.0); MEAN CORPUSCULAR HEMOGLOBIN 29.2 pg (29.0-33.0); MEAN CORPUSCULAR VOLUME 94.3 fl (82.0-101.0); MEAN PLATELET VOLUME 9.6 fl (7.4-10.4); NUCLEATED RED BLOOD CELLS% 0.6 /100WBC (0.0-0.0); PLATELET COUNT 354 10^3/UL (140-415); RED BLOOD COUNT 2.09 10^6/ul (4.20-5.40); RED CELL DISTRIBUTION WIDTH 17.2 % (11.5-14.5)
[2017-07-29 16:33] LABS: WHITE BLOOD COUNT 8.1 10^3/ul (4.8-10.8)
[2017-07-29 16:42] LABS: ADD MAN DIFF? YES; HEMOGLOBIN 6.1 g/dl (12.0-16.0); POSITIVE DIFF @See below
[2017-07-29 16:56] LABS: ALANINE AMINOTRANSFERASE 61 IU/L (13-69); ALBUMIN 2.8 g/dl (3.3-4.9); ALKALINE PHOSPHATASE 373 IU/L (42-121); ANION GAP 15 (8-16); ASPARTATE AMINO TRANSFERASE 59 IU/L (15-46); BLOOD UREA NITROGEN 58 mg/dl (7-20); CALCIUM 9.3 mg/dl (8.4-10.2); CARBON DIOXIDE 25 mmol/L (21-31); CHLORIDE 103 mmol/L (97-110); GLUCOSE 112 mg/dl (70-220); LIPASE 1150 U/L (23-300); POTASSIUM 3.5 mmol/L (3.5-5.1); SODIUM 139 mmol/L (135-144); TOTAL PROTEIN 5.9 g/dl (6.1-8.1)
[2017-07-29 17:06] LABS: PT RATIO 1.2
[2017-07-29 17:07] LABS: PARTIAL THROMBOPLASTIN TIME 36.5 Sec (25.0-35.0)
[2017-07-29 17:12] LABS: TROPONIN-I < 0.012 ng/ml (0.000-0.120)
[2017-07-29 17:17] LABS: EOSINOPHILS # 0.1 10^3/ul (0.0-0.5); EOSINOPHILS % (M) 1 % (0.0-7.0); LYMPHOCYTES # 1.5 10^3/ul (0.8-2.9); LYMPHOCYTES #M 1.5 10^3/ul (0.8-2.9); LYMPHOCYTES % (M) 19 % (15-51); MONOCYTE # 0.4 10^3/ul (0.3-0.9); MONOCYTE #M 0.4 10^3/ul (0.3-0.9); MONOCYTES % (M) 5 % (0-11); PROMYELOCYTES #M 0.2 10^3/ul (0-0); PROMYELOCYTES % (M) 3 % (0-0); SEGMENTED NEUTROPHILS (M) % 72 % (39-77)
[2017-07-29 17:41] LABS: INR 1.21; PROTIME 15.5 Sec (11.9-14.9)
[2017-07-29] MEDS ORDERED: ONDANSETRON 4 MG INJ IV (20:00)
[2017-07-29] MEDS ORDERED: ACETAMINOPHEN 325 MG TAB PO (20:00)
[2017-07-30] MEDS ORDERED: ONDANSETRON 4 MG TAB GTB (01:00)
[2017-07-30] MEDS ORDERED: morphine 2 MG INJ IV (01:00)
[2017-07-30] MEDS ORDERED: LORAZEPAM 0.5 MG TAB GTB (01:00)
[2017-07-30 01:57] LABS: IMMEDIATE SPIN CROSSMATCH 1 2
[2017-07-30] MEDS ORDERED: ALBUTEROL/IPRATROPIUM (NEB) 3 ML AMP HHN (02:00)
[2017-07-30] MEDS ORDERED: PENDING SANTYL ORDER FOR WOUND CARE XX (05:00)
[2017-07-30] MEDS: LEVOTHYROXINE 100 MCG TAB GTB (06:52)
[2017-07-30 07:11] LABS: WHITE BLOOD COUNT 8.9 10^3/ul (4.8-10.8)
[2017-07-30 07:11] LABS: ABNORMAL IP MESSAGE 1; HEMOGLOBIN 8.7 g/dl (12.0-16.0); MEAN CORPUSCULAR HEMOGLOBIN 29.1 pg (29.0-33.0); MEAN CORPUSCULAR HGB CONC 32.2 g/dl (32.0-37.0); MEAN CORPUSCULAR VOLUME 90.3 fl (82.0-101.0); MEAN PLATELET VOLUME 10.2 fl (7.4-10.4); NUCLEATED RED BLOOD CELLS% 0.7 /100WBC (0.0-0.0); PLATELET COUNT 372 10^3/UL (140-415); RED BLOOD COUNT 2.99 10^6/ul (4.20-5.40); RED CELL DISTRIBUTION WIDTH 16.5 % (11.5-14.5)
[2017-07-30 07:15] LABS: ADD MAN DIFF? YES; POSITIVE DIFF @See below
[2017-07-30 07:51] LABS: ANION GAP 16 (8-16); BLOOD UREA NITROGEN 64 mg/dl (7-20); CALCIUM 9.1 mg/dl (8.4-10.2); CARBON DIOXIDE 25 mmol/L (21-31); CHLORIDE 103 mmol/L (97-110); CREATININE 1.02 mg/dl (0.44-1.00); GLUCOSE 130 mg/dl (70-220); POTASSIUM 3.5 mmol/L (3.5-5.1); SODIUM 140 mmol/L (135-144)
[2017-07-30] MEDS ORDERED: ALBUTEROL HFA 8 GM INHALER INH (08:00)
[2017-07-30] MEDS ORDERED: IPRATROPIUM (HFA) 12.9 GM INHALER INH (08:00)
[2017-07-30] MEDS: ALBUTEROL/IPRATROPIUM (NEB) 3 ML AMP HHN ×3 (08:24→19:32)
[2017-07-30] MEDS ORDERED: NON-FORMULARY/PATIENT OWN MED (Protein Supplement (Promod) 30 ML) GTB (09:00)
[2017-07-30] MEDS: LOSARTAN 25 MG TAB GTB (09:00)
[2017-07-30] MEDS: LANSOPRAZOLE 30 MG CAP GTB (09:11)
[2017-07-30] MEDS: ASCORBIC ACID 250 MG TAB GTB (09:11)
[2017-07-30] MEDS: MULTIVIT/CA CARB/B CMPLX/FA TAB GTB (09:11)
[2017-07-30] MEDS ORDERED: GLUCOSE GEL 15 GRAM TUBE BUCCAL (10:00)
[2017-07-30] MEDS ORDERED: GLUCOSE GEL 15 GRAM TUBE PO ×2 (10:00)
[2017-07-30] MEDS ORDERED: GLUCAGON 1 MG INJ IM (10:00)
[2017-07-30] MEDS ORDERED: DEXTROSE 50% 50 ML SYRINGE IV ×2 (10:00)
[2017-07-30 10:37] LABS: ANISOCYTOSIS 1+ (0-0); BAND NEUTROPHILS #M 0.3 10^3/ul (0.0-0.6); BAND NEUTROPHILS % (M) 4 % (0-4); BASOPHILS % (M) 1 % (0-2); LYMPHOCYTES #M 1.6 10^3/ul (0.8-2.9); LYMPHOCYTES % (M) 18 % (15-51); METAMYELOCYTES #M 0.1 10^3/ul (0.0-0.0); METAMYELOCYTES %M 2 % (0-0); MICROCYTOSIS 1+ (0-0); MONOCYTE #M 0.2 10^3/ul (0.3-0.9); MONOCYTES % (M) 3 % (0-11); MYELOCYTES #M 0.1 10^3/ul (0.0-0.0); MYELOCYTES % (M) 2 % (0-0); PLATELET ESTIMATE NORMAL; POLYCHROMASIA 3+ (0-0); REACTIVE LYMPHOCYTES #M 0.3 10^3/ul (0.0-0.0); REACTIVE LYMPHOCYTES% (M) 4 % (0-0); SEG NEUT #M 5.9 10^3/ul (1.6-7.5); SEGMENTED NEUTROPHILS (M) % 66 % (39-77); SMUDGE%M 3 % (0-0)
[2017-07-30] MEDS: INSULIN ASPART [NOVOLOG] 3 ML PEN SC (11:22)
[2017-07-30] MEDS ORDERED: INSULIN ASPART [NOVOLOG] 3 ML PEN SC ×2 (11:50→12:00)
[2017-07-30 12:40] LABS: HEPATITIS B SURFACE ANTIGEN NEGATIVE (NEGATIVE)
[2017-07-30] MEDS: HEPARIN 1000 UNITS/ML 10 ML INJ CATHETER (17:58)
[2017-07-31] MEDS: ALBUTEROL/IPRATROPIUM (NEB) 3 ML AMP HHN ×4 (01:30→19:42)
[2017-07-31] MEDS ORDERED: ACCU-CHEK XX (02:00)
[2017-07-31] MEDS: LEVOTHYROXINE 100 MCG TAB GTB (06:32)
[2017-07-31] MEDS: LANSOPRAZOLE 30 MG CAP GTB (06:32)
[2017-07-31] MEDS: ASCORBIC ACID 250 MG TAB GTB (08:45)
[2017-07-31] MEDS: MULTIVIT/CA CARB/B CMPLX/FA TAB GTB (08:45)
[2017-07-31] MEDS: LOSARTAN 25 MG TAB GTB (08:46)
[2017-07-31 09:02] LABS: ABNORMAL IP MESSAGE 1; HEMATOCRIT 26.3 % (37.0-47.0); HEMOGLOBIN 8.4 g/dl (12.0-16.0); MEAN CORPUSCULAR HEMOGLOBIN 29.2 pg (29.0-33.0); MEAN CORPUSCULAR HGB CONC 31.9 g/dl (32.0-37.0); MEAN CORPUSCULAR VOLUME 91.3 fl (82.0-101.0); NUCLEATED RED BLOOD CELLS% 1.3 /100WBC (0.0-0.0); PLATELET COUNT 390 10^3/UL (140-415); RED BLOOD COUNT 2.88 10^6/ul (4.20-5.40); RED CELL DISTRIBUTION WIDTH 17.4 % (11.5-14.5)
[2017-07-31 09:02] LABS: WHITE BLOOD COUNT 8.3 10^3/ul (4.8-10.8)
[2017-07-31 09:14] LABS: ADD MAN DIFF? YES; POSITIVE DIFF @See below
[2017-07-31 09:23] LABS: ANION GAP 16 (8-16); BLOOD UREA NITROGEN 35 mg/dl (7-20); CALCIUM 8.8 mg/dl (8.4-10.2); CARBON DIOXIDE 27 mmol/L (21-31); CHLORIDE 102 mmol/L (97-110); CREATININE 0.72 mg/dl (0.44-1.00); GLUCOSE 118 mg/dl (70-220); POTASSIUM 3.4 mmol/L (3.5-5.1); SODIUM 142 mmol/L (135-144)
[2017-07-31 10:58] LABS: ANISOCYTOSIS 1+ (0-0); BAND NEUTROPHILS #M 0.9 10^3/ul (0.0-0.6); BAND NEUTROPHILS % (M) 11 % (0-4); BASOPHILS % (M) 1 % (0-2); ERYTHROBLAST% (NRBC) (M) 4 % (0-0); LYMPHOCYTES #M 0.7 10^3/ul (0.8-2.9); LYMPHOCYTES % (M) 9 % (15-51); METAMYELOCYTES %M 1 % (0-0); MICROCYTOSIS 1+ (0-0); MONOCYTE #M 0.4 10^3/ul (0.3-0.9); MONOCYTES % (M) 5 % (0-11); MYELOCYTES #M 0.1 10^3/ul (0.0-0.0); MYELOCYTES % (M) 2 % (0-0); PLATELET ESTIMATE NORMAL; POIKILOCYTOSIS 2+ (0-0); POLYCHROMASIA 3+ (0-0); REACTIVE LYMPHOCYTES #M 0.4 10^3/ul (0.0-0.0); REACTIVE LYMPHOCYTES% (M) 6 % (0-0); SEG NEUT #M 5.5 10^3/ul (1.6-7.5); SEGMENTED NEUTROPHILS (M) % 65 % (39-77); SMUDGE%M 3 % (0-0)
[2017-07-31] MEDS ORDERED: VITAMIN A & D 5 GM OINT PACKET TOP (11:07)
[2017-07-31] MEDS: POTASSIUM CHLORIDE 20 MEQ POWDER FOR ORAL SOLN JT (17:15)
[2017-07-31] MEDS: ALTEPLASE (CATHFLO) 2 MG INJ CATHETER ×3 (18:37→18:48)
[2017-07-31] MEDS: ACETAMINOPHEN 650MG/20.3ML CUP GTB (18:43)
[2017-07-31 19:17] LABS: OCCULT BLOOD STOOL NEGATIVE (NEGATIVE)
[2017-08-01] MEDS: ALBUTEROL/IPRATROPIUM (NEB) 3 ML AMP HHN ×4 (01:14→19:46)
[2017-08-01] MEDS: LEVOTHYROXINE 100 MCG TAB GTB (06:11)
[2017-08-01 06:28] LABS: ABNORMAL IP MESSAGE 1; HEMATOCRIT 25.9 % (37.0-47.0); HEMOGLOBIN 8.3 g/dl (12.0-16.0); MEAN CORPUSCULAR HEMOGLOBIN 29.4 pg (29.0-33.0); MEAN CORPUSCULAR VOLUME 91.8 fl (82.0-101.0); MEAN PLATELET VOLUME 9.8 fl (7.4-10.4); NUCLEATED RED BLOOD CELLS% 0.7 /100WBC (0.0-0.0); PLATELET COUNT 386 10^3/UL (140-415); RED BLOOD COUNT 2.82 10^6/ul (4.20-5.40); RED CELL DISTRIBUTION WIDTH 17.6 % (11.5-14.5)
[2017-08-01 06:35] LABS: ADD MAN DIFF? YES; POSITIVE DIFF @See below
[2017-08-01] MEDS: LANSOPRAZOLE 30 MG CAP GTB (07:04)
[2017-08-01 07:26] LABS: ANION GAP 15 (8-16); BLOOD UREA NITROGEN 47 mg/dl (7-20); CALCIUM 8.9 mg/dl (8.4-10.2); CARBON DIOXIDE 27 mmol/L (21-31); CHLORIDE 104 mmol/L (97-110); CREATININE 0.95 mg/dl (0.44-1.00); GLUCOSE 138 mg/dl (70-220); POTASSIUM 3.9 mmol/L (3.5-5.1); SODIUM 142 mmol/L (135-144)
[2017-08-01 07:39] LABS: ANISOCYTOSIS 2+ (0-0); BAND NEUTROPHILS #M 0.4 10^3/ul (0.0-0.6); BAND NEUTROPHILS % (M) 4 % (0-4); ERYTHROBLAST% (NRBC) (M) 1 % (0-0); GIANT THROMBO% (M) 1 % (0-0); LYMPHOCYTES #M 1.2 10^3/ul (0.8-2.9); LYMPHOCYTES % (M) 12 % (15-51); METAMYELOCYTES #M 0.3 10^3/ul (0.0-0.0); METAMYELOCYTES %M 3 % (0-0); MICROCYTOSIS 2+ (0-0); MONOCYTE #M 0.3 10^3/ul (0.3-0.9); MONOCYTES % (M) 3 % (0-11); MYELOCYTES #M 0.7 10^3/ul (0.0-0.0); MYELOCYTES % (M) 7 % (0-0); PLATELET ESTIMATE NORMAL; POLYCHROMASIA 3+ (0-0); PROMYELOCYTES #M 0.3 10^3/ul (0-0); PROMYELOCYTES % (M) 3 % (0-0); SEG NEUT #M 6.8 10^3/ul (1.6-7.5); SEGMENTED NEUTROPHILS (M) % 68 % (39-77); SMUDGE%M 2 % (0-0)
[2017-08-01] MEDS: LOSARTAN 25 MG TAB GTB (09:53)
[2017-08-01] MEDS: MULTIVIT/CA CARB/B CMPLX/FA TAB GTB (09:53)
[2017-08-01] MEDS: ASCORBIC ACID 250 MG TAB GTB (09:53)
[2017-08-01 11:54] LABS: AMYLASE 198 U/L (11-123); LIPASE 920 U/L (23-300)
[2017-08-01] MEDS: ACETAMINOPHEN 650MG/20.3ML CUP GTB (20:29)
[2017-08-02] MEDS ORDERED: IPRATROPIUM (HFA) 12.9 GM INHALER INH (02:00)
[2017-08-02] MEDS ORDERED: ALBUTEROL HFA 8 GM INHALER INH (02:00)
[2017-08-02] MEDS: ALBUTEROL/IPRATROPIUM (NEB) 3 ML AMP HHN ×4 (02:26→19:21)
[2017-08-02] MEDS: ACETAMINOPHEN 650MG/20.3ML CUP GTB ×2 (04:09→14:00)
[2017-08-02] MEDS ORDERED: VITAMIN A & D 5 GM OINT PACKET TOP (04:40)
[2017-08-02 08:01] LABS: ADD MAN DIFF? NO
[2017-08-02 08:35] LABS: ALANINE AMINOTRANSFERASE 37 IU/L (13-69); ALBUMIN 2.7 g/dl (3.3-4.9); ALKALINE PHOSPHATASE 309 IU/L (42-121); ANION GAP 15 (8-16); ASPARTATE AMINO TRANSFERASE 24 IU/L (15-46); BLOOD UREA NITROGEN 61 mg/dl (7-20); CALCIUM 9.4 mg/dl (8.4-10.2); CARBON DIOXIDE 29 mmol/L (21-31); CHLORIDE 103 mmol/L (97-110); CREATININE 1.19 mg/dl (0.44-1.00); GLUCOSE 112 mg/dl (70-220); POTASSIUM 4.2 mmol/L (3.5-5.1); SODIUM 143 mmol/L (135-144); TOTAL PROTEIN 5.7 g/dl (6.1-8.1)
[2017-08-02] MEDS: LOSARTAN 25 MG TAB GTB (09:00)
[2017-08-02] MEDS: LANSOPRAZOLE 30 MG CAP GTB (09:42)
[2017-08-02] MEDS: LEVOTHYROXINE 100 MCG TAB GTB (09:42)
[2017-08-02] MEDS: ASCORBIC ACID 250 MG TAB GTB (09:42)
[2017-08-02] MEDS: MULTIVIT/CA CARB/B CMPLX/FA TAB GTB (09:42)
[2017-08-02 09:46] LABS: ABNORMAL IP MESSAGE 1; BASOPHIL # 0.1 10^3/ul (0.0-0.1); BASOPHILS % 0.4 % (0.0-2.0); EOSINOPHILS # 0.1 10^3/ul (0.0-0.5); EOSINOPHILS % 0.9 % (0.0-7.0); HEMATOCRIT 28.8 % (37.0-47.0); HEMOGLOBIN 8.9 g/dl (12.0-16.0); LYMPHOCYTES # 1.5 10^3/ul (0.8-2.9); LYMPHOCYTES % 12.6 % (15.0-51.0); MEAN CORPUSCULAR HEMOGLOBIN 28.6 pg (29.0-33.0); MEAN CORPUSCULAR HGB CONC 30.9 g/dl (32.0-37.0); MEAN CORPUSCULAR VOLUME 92.6 fl (82.0-101.0); MEAN PLATELET VOLUME 9.8 fl (7.4-10.4); MONOCYTE # 0.8 10^3/ul (0.3-0.9); MONOCYTES % 6.6 % (0.0-11.0); NEUTROPHIL # 8.7 10^3/ul (1.6-7.5); NEUTROPHILS % 71.9 % (39.0-77.0); NUCLEATED RED BLOOD CELLS # 0.1 10^3/ul (0.0-0.0); NUCLEATED RED BLOOD CELLS% 0.6 /100WBC (0.0-0.0); PLATELET COUNT 407 10^3/UL (140-415); RED BLOOD COUNT 3.11 10^6/ul (4.20-5.40); RED CELL DISTRIBUTION WIDTH 17.7 % (11.5-14.5)
[2017-08-02 09:46] LABS: WHITE BLOOD COUNT 12.1 10^3/ul (4.8-10.8)
[2017-08-02 09:53] LABS: POSITIVE DIFF @See below
[2017-08-02] MEDS: HEPARIN 1000 UNITS/ML 10 ML INJ CATHETER (14:33)
[2017-08-02] MEDS: morphine LIQ (10 MG/5 ML) CUP GTB (16:42)
[2017-08-02] MEDS: EPOETIN 10000 UNITS/ML (NON ESRD/NON ONCOLOGY) SC (17:11)
[2017-08-03] MEDS: ACETAMINOPHEN 650MG/20.3ML CUP GTB ×2 (00:27→20:46)
[2017-08-03] MEDS: ALBUTEROL/IPRATROPIUM (NEB) 3 ML AMP HHN ×4 (01:24→19:40)
[2017-08-03] MEDS: LEVOTHYROXINE 100 MCG TAB GTB (06:56)
[2017-08-03] MEDS: LANSOPRAZOLE 30 MG CAP GTB (06:56)
[2017-08-03 07:40] LABS: ADD MAN DIFF? NO
[2017-08-03 07:44] LABS: ABNORMAL IP MESSAGE 1; BASOPHIL # 0.1 10^3/ul (0.0-0.1); BASOPHILS % 0.8 % (0.0-2.0); EOSINOPHILS # 0.1 10^3/ul (0.0-0.5); HEMATOCRIT 26.7 % (37.0-47.0); HEMOGLOBIN 8.1 g/dl (12.0-16.0); LYMPHOCYTES # 1.2 10^3/ul (0.8-2.9); LYMPHOCYTES % 13.3 % (15.0-51.0); MEAN CORPUSCULAR HEMOGLOBIN 28.4 pg (29.0-33.0); MEAN CORPUSCULAR HGB CONC 30.3 g/dl (32.0-37.0); MEAN CORPUSCULAR VOLUME 93.7 fl (82.0-101.0); MEAN PLATELET VOLUME 9.8 fl (7.4-10.4); MONOCYTE # 0.7 10^3/ul (0.3-0.9); MONOCYTES % 8.1 % (0.0-11.0); NEUTROPHIL # 6.4 10^3/ul (1.6-7.5); NEUTROPHILS % 70.5 % (39.0-77.0); NUCLEATED RED BLOOD CELLS% 0.3 /100WBC (0.0-0.0); PLATELET COUNT 369 10^3/UL (140-415); RED BLOOD COUNT 2.85 10^6/ul (4.20-5.40); RED CELL DISTRIBUTION WIDTH 17.6 % (11.5-14.5)
[2017-08-03 07:44] LABS: WHITE BLOOD COUNT 9.1 10^3/ul (4.8-10.8)
[2017-08-03 08:08] LABS: ANION GAP 16 (8-16); BLOOD UREA NITROGEN 38 mg/dl (7-20); CALCIUM 9.3 mg/dl (8.4-10.2); CARBON DIOXIDE 28 mmol/L (21-31); CHLORIDE 101 mmol/L (97-110); CREATININE 0.82 mg/dl (0.44-1.00); GLUCOSE 104 mg/dl (70-220); POTASSIUM 3.8 mmol/L (3.5-5.1); SODIUM 141 mmol/L (135-144)
[2017-08-03] MEDS: ASCORBIC ACID 250 MG TAB GTB (08:30)
[2017-08-03] MEDS: MULTIVIT/CA CARB/B CMPLX/FA TAB GTB (08:30)
[2017-08-03] MEDS: LOSARTAN 25 MG TAB GTB (08:31)
[2017-08-04] MEDS: ALBUTEROL/IPRATROPIUM (NEB) 3 ML AMP HHN ×4 (02:54→19:21)
[2017-08-04] MEDS: LANSOPRAZOLE 30 MG CAP GTB (06:58)
[2017-08-04] MEDS: LEVOTHYROXINE 100 MCG TAB GTB (06:58)
[2017-08-04 07:20] LABS: ADD MAN DIFF? NO
[2017-08-04 07:24] LABS: ABNORMAL IP MESSAGE 1; BASOPHIL # 0.1 10^3/ul (0.0-0.1); BASOPHILS % 0.6 % (0.0-2.0); EOSINOPHILS # 0.1 10^3/ul (0.0-0.5); EOSINOPHILS % 1.3 % (0.0-7.0); HEMATOCRIT 28.3 % (37.0-47.0); HEMOGLOBIN 8.6 g/dl (12.0-16.0); LYMPHOCYTES # 1.4 10^3/ul (0.8-2.9); LYMPHOCYTES % 14.4 % (15.0-51.0); MEAN CORPUSCULAR HEMOGLOBIN 28.4 pg (29.0-33.0); MEAN CORPUSCULAR HGB CONC 30.4 g/dl (32.0-37.0); MEAN CORPUSCULAR VOLUME 93.4 fl (82.0-101.0); MEAN PLATELET VOLUME 9.5 fl (7.4-10.4); MONOCYTE # 0.8 10^3/ul (0.3-0.9); MONOCYTES % 8.3 % (0.0-11.0); NEUTROPHIL # 6.9 10^3/ul (1.6-7.5); NEUTROPHILS % 69.5 % (39.0-77.0); NUCLEATED RED BLOOD CELLS% 0.3 /100WBC (0.0-0.0); PLATELET COUNT 353 10^3/UL (140-415); RED BLOOD COUNT 3.03 10^6/ul (4.20-5.40); RED CELL DISTRIBUTION WIDTH 17.2 % (11.5-14.5)
[2017-08-04 07:24] LABS: WHITE BLOOD COUNT 9.9 10^3/ul (4.8-10.8)
[2017-08-04 07:42] LABS: POSITIVE DIFF @See below
[2017-08-04 07:51] LABS: ANION GAP 19 (8-16); BLOOD UREA NITROGEN 53 mg/dl (7-20); CALCIUM 9.7 mg/dl (8.4-10.2); CARBON DIOXIDE 26 mmol/L (21-31); CHLORIDE 100 mmol/L (97-110); CREATININE 1.02 mg/dl (0.44-1.00); GLUCOSE 112 mg/dl (70-220); POTASSIUM 4.2 mmol/L (3.5-5.1); SODIUM 141 mmol/L (135-144)
[2017-08-04] MEDS: MULTIVIT/CA CARB/B CMPLX/FA TAB GTB (08:25)
[2017-08-04] MEDS: LOSARTAN 25 MG TAB GTB (08:25)
[2017-08-04] MEDS: ASCORBIC ACID 250 MG TAB GTB (08:25)
[2017-08-04] MEDS: HEPARIN 1000 UNITS/ML 10 ML INJ CATHETER (13:17)
[2017-08-04] MEDS: ACETAMINOPHEN 650MG/20.3ML CUP GTB ×2 (14:33→20:00)
[2017-08-04] MEDS: EPOETIN 10000 UNITS/ML (NON ESRD/NON ONCOLOGY) SC (16:17)
[2017-08-04] MEDS: BALSAM PERU/CASTOR OIL 60 GM TUBE TOP (21:05)
[2017-08-04] MEDS: hydrALAzine 20 MG INJ IV (23:35)
[2017-08-05] MEDS: ALBUTEROL/IPRATROPIUM (NEB) 3 ML AMP HHN ×4 (01:12→19:31)
[2017-08-05] MEDS: LANSOPRAZOLE 30 MG CAP GTB (06:01)
[2017-08-05] MEDS: LEVOTHYROXINE 100 MCG TAB GTB (06:01)
[2017-08-05] MEDS: ACETAMINOPHEN 650MG/20.3ML CUP GTB (06:02)
[2017-08-05] MEDS: ASCORBIC ACID 250 MG TAB GTB (08:16)
[2017-08-05] MEDS: MULTIVIT/CA CARB/B CMPLX/FA TAB GTB (08:16)
[2017-08-05] MEDS: BALSAM PERU/CASTOR OIL 60 GM TUBE TOP ×2 (08:17→21:22)
[2017-08-05] MEDS: LOSARTAN 25 MG TAB GTB (08:17)
[2017-08-05] MEDS: ALBUMIN HUMAN 25% 100 ML IV (21:21)
[2017-08-05] MEDS: HEPARIN 1000 UNITS/ML 10 ML INJ CATHETER (23:19)
[2017-08-06] MEDS: ALBUTEROL/IPRATROPIUM (NEB) 3 ML AMP HHN ×3 (01:33→14:00)
[2017-08-06] MEDS: LANSOPRAZOLE 30 MG CAP GTB (07:30)
[2017-08-06] MEDS: LEVOTHYROXINE 100 MCG TAB GTB (07:30)
[2017-08-06] MEDS: MULTIVIT/CA CARB/B CMPLX/FA TAB GTB (08:26)
[2017-08-06] MEDS: LOSARTAN 25 MG TAB GTB (08:26)
[2017-08-06] MEDS: ASCORBIC ACID 250 MG TAB GTB (08:26)
[2017-08-06] MEDS: BALSAM PERU/CASTOR OIL 60 GM TUBE TOP (08:27)
[2017-08-06 09:10] LABS: ABNORMAL IP MESSAGE 1; HEMATOCRIT 31.6 % (37.0-47.0); HEMOGLOBIN 9.7 g/dl (12.0-16.0); MEAN CORPUSCULAR HEMOGLOBIN 28.3 pg (29.0-33.0); MEAN CORPUSCULAR HGB CONC 30.7 g/dl (32.0-37.0); MEAN CORPUSCULAR VOLUME 92.1 fl (82.0-101.0); MEAN PLATELET VOLUME 9.6 fl (7.4-10.4); NUCLEATED RED BLOOD CELLS% 0.1 /100WBC (0.0-0.0); PLATELET COUNT 335 10^3/UL (140-415); RED BLOOD COUNT 3.43 10^6/ul (4.20-5.40)
[2017-08-06 09:10] LABS: WHITE BLOOD COUNT 30.8 10^3/ul (4.8-10.8)
[2017-08-06 09:15] LABS: POSITIVE DIFF @See below
[2017-08-06 09:16] LABS: ADD MAN DIFF? YES
[2017-08-06 09:28] LABS: ANION GAP 14 (8-16); BLOOD UREA NITROGEN 21 mg/dl (7-20); CARBON DIOXIDE 33 mmol/L (21-31); CHLORIDE 100 mmol/L (97-110); CREATININE 0.64 mg/dl (0.44-1.00); GLUCOSE 140 mg/dl (70-220); POTASSIUM 3.9 mmol/L (3.5-5.1); SODIUM 143 mmol/L (135-144)
[2017-08-06] MEDS: CEFEPIME 1GM/50 ML (PMX) 50 ML IVPB (10:00)
[2017-08-06] MEDS ORDERED: VANCOMYCIN IV PER PHARMACY XX (10:00)
[2017-08-06] MEDS ORDERED: VITAMIN A & D 5 GM OINT PACKET TOP (10:06)
[2017-08-06 10:42] LABS: ANISOCYTOSIS 1+ (0-0); BAND NEUTROPHILS #M 2.4 10^3/ul (0.0-0.6); BAND NEUTROPHILS % (M) 8 % (0-4); LYMPHOCYTES #M 0.3 10^3/ul (0.8-2.9); LYMPHOCYTES % (M) 1 % (15-51); MICROCYTOSIS 1+ (0-0); MONOCYTE #M 0.6 10^3/ul (0.3-0.9); MONOCYTES % (M) 2 % (0-11); PLATELET ESTIMATE NORMAL; POLYCHROMASIA 2+ (0-0); RBC MORPHOLOGY COMMENT @See below; SEG NEUT #M 28.2 10^3/ul (1.6-7.5); SEGMENTED NEUTROPHILS (M) % 89 % (39-77); WBC MORPHOLOGY COMMENT @See below
[2017-08-06] MEDS: CEFEPIME 2GM/50 ML (PMX) 50 ML IVPB (11:36)
[2017-08-06] MEDS: VANCOMYCIN 2 GM in SOD CHLORIDE 0.9% 500 ML IVPB (12:11)
[2017-08-06] MEDS: ACETAMINOPHEN 650MG/20.3ML CUP GTB (16:33)
[2017-08-06] MEDS: IPRATROPIUM (NEB) 0.5 MG/2.5 ML AMP INH ×2 (20:00→20:53)
[2017-08-06] MEDS ORDERED: IPRATROPIUM (HFA) 12.9 GM INHALER INH (20:00)
[2017-08-06] MEDS: ALBUTEROL HFA 8 GM INHALER INH (20:06)
[2017-08-06] MEDS: hydrALAzine 20 MG INJ IV (22:58)
[2017-08-06 23:47] LABS: ADD MAN DIFF? NO
[2017-08-06 23:48] LABS: WHITE BLOOD COUNT 19.8 10^3/ul (4.8-10.8)
[2017-08-06 23:48] LABS: ABNORMAL IP MESSAGE 1; BASOPHIL # 0.1 10^3/ul (0.0-0.1); BASOPHILS % 0.5 % (0.0-2.0); EOSINOPHILS # 0.1 10^3/ul (0.0-0.5); EOSINOPHILS % 0.3 % (0.0-7.0); HEMATOCRIT 33.3 % (37.0-47.0); HEMOGLOBIN 10.3 g/dl (12.0-16.0); LYMPHOCYTES # 1.7 10^3/ul (0.8-2.9); LYMPHOCYTES % 8.7 % (15.0-51.0); MEAN CORPUSCULAR HEMOGLOBIN 28.4 pg (29.0-33.0); MEAN CORPUSCULAR HGB CONC 30.9 g/dl (32.0-37.0); MEAN CORPUSCULAR VOLUME 91.7 fl (82.0-101.0); MEAN PLATELET VOLUME 9.5 fl (7.4-10.4); MONOCYTE # 1.9 10^3/ul (0.3-0.9); MONOCYTES % 9.4 % (0.0-11.0); NEUTROPHIL # 15.7 10^3/ul (1.6-7.5); NEUTROPHILS % 79.4 % (39.0-77.0); NUCLEATED RED BLOOD CELLS% 0.1 /100WBC (0.0-0.0); PLATELET COUNT 314 10^3/UL (140-415); RED BLOOD COUNT 3.63 10^6/ul (4.20-5.40); RED CELL DISTRIBUTION WIDTH 16.9 % (11.5-14.5)
[2017-08-06 23:57] LABS: POSITIVE DIFF @See below
[2017-08-07 01:31] LABS: LACTIC ACID 1.2 mmol/L (0.5-2.0)
[2017-08-07] MEDS: IPRATROPIUM (NEB) 0.5 MG/2.5 ML AMP INH ×3 (01:43→19:42)
[2017-08-07] MEDS: ALBUTEROL HFA 8 GM INHALER INH ×4 (01:44→19:42)
[2017-08-07] MEDS: LEVOTHYROXINE 100 MCG TAB GTB (05:46)
[2017-08-07] MEDS: LANSOPRAZOLE 30 MG CAP GTB (05:46)
[2017-08-07] MEDS: BALSAM PERU/CASTOR OIL 60 GM TUBE TOP ×2 (05:47→08:26)
[2017-08-07 07:02] LABS: ADD MAN DIFF? NO
[2017-08-07 07:08] LABS: WHITE BLOOD COUNT 17.5 10^3/ul (4.8-10.8)
[2017-08-07 07:08] LABS: ABNORMAL IP MESSAGE 1; BASOPHIL # 0.1 10^3/ul (0.0-0.1); BASOPHILS % 0.5 % (0.0-2.0); EOSINOPHILS # 0.1 10^3/ul (0.0-0.5); EOSINOPHILS % 0.3 % (0.0-7.0); HEMATOCRIT 32.3 % (37.0-47.0); HEMOGLOBIN 9.8 g/dl (12.0-16.0); LYMPHOCYTES # 1.5 10^3/ul (0.8-2.9); LYMPHOCYTES % 8.4 % (15.0-51.0); MEAN CORPUSCULAR HEMOGLOBIN 28.1 pg (29.0-33.0); MEAN CORPUSCULAR HGB CONC 30.3 g/dl (32.0-37.0); MEAN CORPUSCULAR VOLUME 92.6 fl (82.0-101.0); MEAN PLATELET VOLUME 9.8 fl (7.4-10.4); MONOCYTE # 1.5 10^3/ul (0.3-0.9); MONOCYTES % 8.7 % (0.0-11.0); NEUTROPHILS % 80.5 % (39.0-77.0); NUCLEATED RED BLOOD CELLS% 0.1 /100WBC (0.0-0.0); PLATELET COUNT 314 10^3/UL (140-415); RED BLOOD COUNT 3.49 10^6/ul (4.20-5.40); RED CELL DISTRIBUTION WIDTH 16.8 % (11.5-14.5)
[2017-08-07 07:14] LABS: LACTIC ACID 1.4 mmol/L (0.5-2.0)
[2017-08-07 07:26] LABS: ANION GAP 16 (8-16); BLOOD UREA NITROGEN 46 mg/dl (7-20); CALCIUM 10.4 mg/dl (8.4-10.2); CARBON DIOXIDE 28 mmol/L (21-31); CHLORIDE 103 mmol/L (97-110); CREATININE 0.73 mg/dl (0.44-1.00); GLUCOSE 120 mg/dl (70-220); POTASSIUM 4.1 mmol/L (3.5-5.1); SODIUM 143 mmol/L (135-144)
[2017-08-07 07:28] LABS: POSITIVE DIFF @See below
[2017-08-07] MEDS: LOSARTAN 25 MG TAB GTB (08:26)
[2017-08-07] MEDS: MULTIVIT/CA CARB/B CMPLX/FA TAB GTB (08:26)
[2017-08-07] MEDS: ASCORBIC ACID 250 MG TAB GTB (08:26)
[2017-08-07] MEDS: CEFEPIME 2GM/50 ML (PMX) 50 ML IVPB (11:15)
[2017-08-07] MEDS: ACETAMINOPHEN 650MG/20.3ML CUP GTB (15:00)
[2017-08-07] MEDS ORDERED: AMIKACIN IV PER PHARMACY XX (20:00)
[2017-08-07] MEDS: hydrALAzine 20 MG INJ IV (20:55)
[2017-08-07] MEDS: SOD CHLORIDE 0.9% IVPB (21:28)
[2017-08-07] MEDS: AMIKACIN IVPB (21:28)
[2017-08-08] MEDS: IPRATROPIUM (NEB) 0.5 MG/2.5 ML AMP INH ×4 (01:44→19:31)
[2017-08-08] MEDS: ALBUTEROL HFA 8 GM INHALER INH ×4 (01:44→19:46)
[2017-08-08] MEDS: LEVOTHYROXINE 100 MCG TAB GTB (06:22)
[2017-08-08] MEDS: LANSOPRAZOLE 30 MG CAP GTB (06:22)
[2017-08-08] MEDS: BALSAM PERU/CASTOR OIL 60 GM TUBE TOP ×2 (06:23→12:45)
[2017-08-08 06:40] LABS: ADD MAN DIFF? NO
[2017-08-08 06:45] LABS: WHITE BLOOD COUNT 16.6 10^3/ul (4.8-10.8)
[2017-08-08 06:45] LABS: BASOPHIL # 0.1 10^3/ul (0.0-0.1); BASOPHILS % 0.5 % (0.0-2.0); EOSINOPHILS # 0.1 10^3/ul (0.0-0.5); EOSINOPHILS % 0.4 % (0.0-7.0); HEMATOCRIT 32.8 % (37.0-47.0); LYMPHOCYTES # 1.6 10^3/ul (0.8-2.9); LYMPHOCYTES % 9.6 % (15.0-51.0); MEAN CORPUSCULAR HEMOGLOBIN 28.2 pg (29.0-33.0); MEAN CORPUSCULAR HGB CONC 30.5 g/dl (32.0-37.0); MEAN CORPUSCULAR VOLUME 92.4 fl (82.0-101.0); MONOCYTE # 1.3 10^3/ul (0.3-0.9); MONOCYTES % 7.8 % (0.0-11.0); NEUTROPHIL # 13.3 10^3/ul (1.6-7.5); NEUTROPHILS % 80.1 % (39.0-77.0); PLATELET COUNT 322 10^3/UL (140-415); RED BLOOD COUNT 3.55 10^6/ul (4.20-5.40); RED CELL DISTRIBUTION WIDTH 16.8 % (11.5-14.5)
[2017-08-08 07:01] LABS: PATH REVIEW DK
[2017-08-08 07:02] LABS: ANION GAP 21 (8-16); BLOOD UREA NITROGEN 59 mg/dl (7-20); CALCIUM 10.6 mg/dl (8.4-10.2); CARBON DIOXIDE 26 mmol/L (21-31); CHLORIDE 102 mmol/L (97-110); CREATININE 1.03 mg/dl (0.44-1.00); GLUCOSE 116 mg/dl (70-220); POTASSIUM 4.2 mmol/L (3.5-5.1); SODIUM 145 mmol/L (135-144)
[2017-08-08 07:25] LABS: VANCOMYCIN,RANDOM 20.8 ug/ml
[2017-08-08] MEDS: LOSARTAN 25 MG TAB GTB (09:21)
[2017-08-08] MEDS: hydrALAzine 20 MG INJ IV (09:22)
[2017-08-08] MEDS: HEPARIN 1000 UNITS/ML 10 ML INJ CATHETER (10:52)
[2017-08-08] MEDS: ASCORBIC ACID 250 MG TAB GTB (12:41)
[2017-08-08] MEDS: MULTIVIT/CA CARB/B CMPLX/FA TAB GTB (12:43)
[2017-08-08] MEDS: AMLODIPINE 10 MG TAB PO (12:44)
[2017-08-08] MEDS: CEFEPIME 2GM/50 ML (PMX) 50 ML IVPB (12:45)
[2017-08-08] MEDS: AMIKACIN 350 MG in SOD CHLORIDE 0.9% 100 ML IVPB (15:25)
[2017-08-08] MEDS: ACETAMINOPHEN 650MG/20.3ML CUP GTB (17:44)
[2017-08-09] MEDS: ALBUTEROL HFA 8 GM INHALER INH ×4 (01:00→19:28)
[2017-08-09] MEDS: IPRATROPIUM (NEB) 0.5 MG/2.5 ML AMP INH ×4 (01:02→19:28)
[2017-08-09] MEDS: BALSAM PERU/CASTOR OIL 60 GM TUBE TOP ×3 (06:33→21:05)
[2017-08-09] MEDS: LANSOPRAZOLE 30 MG CAP GTB (06:33)
[2017-08-09] MEDS: LEVOTHYROXINE 100 MCG TAB GTB (06:46)
[2017-08-09] MEDS: MULTIVIT/CA CARB/B CMPLX/FA TAB GTB (09:00)
[2017-08-09] MEDS: COLLAGENASE 5 GM (UD JAR) TOP (09:00)
[2017-08-09] MEDS: LOSARTAN 25 MG TAB GTB (09:00)
[2017-08-09] MEDS: ASCORBIC ACID 250 MG TAB GTB (09:00)
[2017-08-09] MEDS: AMLODIPINE 10 MG TAB PO (09:00)
[2017-08-09 09:36] LABS: ADD MAN DIFF? NO
[2017-08-09 09:40] LABS: ABNORMAL IP MESSAGE 1; BASOPHIL # 0.1 10^3/ul (0.0-0.1); BASOPHILS % 0.4 % (0.0-2.0); EOSINOPHILS % 0.2 % (0.0-7.0); HEMATOCRIT 27.6 % (37.0-47.0); HEMOGLOBIN 8.5 g/dl (12.0-16.0); LYMPHOCYTES # 1.7 10^3/ul (0.8-2.9); LYMPHOCYTES % 9.1 % (15.0-51.0); MEAN CORPUSCULAR HEMOGLOBIN 28.3 pg (29.0-33.0); MEAN CORPUSCULAR HGB CONC 30.8 g/dl (32.0-37.0); MEAN PLATELET VOLUME 10.3 fl (7.4-10.4); MONOCYTE # 1.5 10^3/ul (0.3-0.9); NEUTROPHIL # 15.5 10^3/ul (1.6-7.5); NEUTROPHILS % 81.1 % (39.0-77.0); PLATELET COUNT 273 10^3/UL (140-415); RED CELL DISTRIBUTION WIDTH 17.2 % (11.5-14.5)
[2017-08-09 09:40] LABS: WHITE BLOOD COUNT 19.1 10^3/ul (4.8-10.8)
[2017-08-09 09:42] LABS: POSITIVE DIFF @See below
[2017-08-09 09:59] LABS: ANION GAP 13 (8-16); BLOOD UREA NITROGEN 46 mg/dl (7-20); CARBON DIOXIDE 30 mmol/L (21-31); CHLORIDE 104 mmol/L (97-110); CREATININE 0.81 mg/dl (0.44-1.00); GLUCOSE 114 mg/dl (70-220); SODIUM 143 mmol/L (135-144)
[2017-08-09] MEDS: EPOETIN 10000 UNITS/ML (NON ESRD/NON ONCOLOGY) SC (17:08)
[2017-08-09] MEDS: ACETAMINOPHEN 650MG/20.3ML CUP GTB (18:29)
[2017-08-09 19:26] LABS: ALANINE AMINOTRANSFERASE 23 IU/L (13-69); ALBUMIN 3.3 g/dl (3.3-4.9); ALBUMIN/GLOBULIN RATIO 0.94; ALKALINE PHOSPHATASE 263 IU/L (42-121); AMYLASE 150 U/L (11-123); ANION GAP 20 (8-16); ASPARTATE AMINO TRANSFERASE 19 IU/L (15-46); BILIRUBIN,INDIRECT 0.1 mg/dl (0-1.1); BILIRUBIN,TOTAL 0.1 mg/dl (0.2-1.3); BLOOD UREA NITROGEN 49 mg/dl (7-20); CALCIUM 10.4 mg/dl (8.4-10.2); CARBON DIOXIDE 27 mmol/L (21-31); CHLORIDE 102 mmol/L (97-110); CREATININE 0.91 mg/dl (0.44-1.00); GLUCOSE 120 mg/dl (70-220); LIPASE 506 U/L (23-300); POTASSIUM 4.3 mmol/L (3.5-5.1); SODIUM 145 mmol/L (135-144); TOTAL PROTEIN 6.8 g/dl (6.1-8.1)
[2017-08-09] MEDS: NYSTATIN 30 GM POWDER BTL TOP (21:05)
[2017-08-10] MEDS: ALBUTEROL HFA 8 GM INHALER INH ×4 (01:14→20:05)
[2017-08-10] MEDS: IPRATROPIUM (NEB) 0.5 MG/2.5 ML AMP INH ×4 (01:15→20:05)
[2017-08-10] MEDS: LEVOTHYROXINE 100 MCG TAB GTB (06:04)
[2017-08-10] MEDS: LOSARTAN 25 MG TAB GTB (09:00)
[2017-08-10] MEDS: AMLODIPINE 10 MG TAB PO (09:00)
[2017-08-10 09:11] LABS: ADD MAN DIFF? NO
[2017-08-10 09:19] LABS: WHITE BLOOD COUNT 17.6 10^3/ul (4.8-10.8)
[2017-08-10 09:19] LABS: BASOPHIL # 0.1 10^3/ul (0.0-0.1); BASOPHILS % 0.5 % (0.0-2.0); EOSINOPHILS # 0.1 10^3/ul (0.0-0.5); EOSINOPHILS % 0.5 % (0.0-7.0); HEMATOCRIT 29.4 % (37.0-47.0); HEMOGLOBIN 8.8 g/dl (12.0-16.0); LYMPHOCYTES # 1.6 10^3/ul (0.8-2.9); LYMPHOCYTES % 9.2 % (15.0-51.0); MEAN CORPUSCULAR HEMOGLOBIN 27.5 pg (29.0-33.0); MEAN CORPUSCULAR HGB CONC 29.9 g/dl (32.0-37.0); MEAN CORPUSCULAR VOLUME 91.9 fl (82.0-101.0); MEAN PLATELET VOLUME 10.2 fl (7.4-10.4); MONOCYTE # 1.3 10^3/ul (0.3-0.9); MONOCYTES % 7.2 % (0.0-11.0); NEUTROPHIL # 14.3 10^3/ul (1.6-7.5); NEUTROPHILS % 80.9 % (39.0-77.0); NUCLEATED RED BLOOD CELLS% 0.1 /100WBC (0.0-0.0); PLATELET COUNT 299 10^3/UL (140-415); RED CELL DISTRIBUTION WIDTH 17.2 % (11.5-14.5)
[2017-08-10 09:37] LABS: ANION GAP 16 (8-16); BLOOD UREA NITROGEN 61 mg/dl (7-20); CALCIUM 10.3 mg/dl (8.4-10.2); CARBON DIOXIDE 29 mmol/L (21-31); CHLORIDE 104 mmol/L (97-110); CREATININE 1.07 mg/dl (0.44-1.00); GLUCOSE 115 mg/dl (70-220); POTASSIUM 4.2 mmol/L (3.5-5.1); SODIUM 145 mmol/L (135-144)
[2017-08-10] MEDS: MULTIVIT/CA CARB/B CMPLX/FA TAB GTB (09:55)
[2017-08-10] MEDS: LANSOPRAZOLE 30 MG CAP GTB (09:55)
[2017-08-10] MEDS: ASCORBIC ACID 250 MG TAB GTB (09:55)
[2017-08-10] MEDS: BALSAM PERU/CASTOR OIL 60 GM TUBE TOP ×2 (09:56→20:36)
[2017-08-10] MEDS: COLLAGENASE 5 GM (UD JAR) TOP (09:56)
[2017-08-10] MEDS: NYSTATIN 30 GM POWDER BTL TOP ×2 (09:56→20:36)
[2017-08-10] MEDS: ACETAMINOPHEN 650MG/20.3ML CUP GTB (18:07)
[2017-08-11] MEDS: HEPARIN 1000 UNITS/ML 10 ML INJ CATHETER (00:09)
[2017-08-11] MEDS: AMIKACIN 350 MG in SOD CHLORIDE 0.9% 100 ML IVPB (01:16)
[2017-08-11] MEDS: ALBUTEROL HFA 8 GM INHALER INH ×4 (01:27→19:48)
[2017-08-11] MEDS: IPRATROPIUM (NEB) 0.5 MG/2.5 ML AMP INH ×4 (01:27→19:48)
[2017-08-11] MEDS: LEVOTHYROXINE 100 MCG TAB GTB (04:58)
[2017-08-11] MEDS: COLLAGENASE 5 GM (UD JAR) TOP (08:47)
[2017-08-11] MEDS: ASCORBIC ACID 250 MG TAB GTB (08:47)
[2017-08-11] MEDS: LOSARTAN 25 MG TAB GTB (08:49)
[2017-08-11] MEDS: LANSOPRAZOLE 30 MG CAP GTB (08:49)
[2017-08-11] MEDS: AMLODIPINE 10 MG TAB PO (08:49)
[2017-08-11] MEDS: ACETAMINOPHEN 650MG/20.3ML CUP GTB (08:54)
[2017-08-11] MEDS: MULTIVIT/CA CARB/B CMPLX/FA TAB GTB (08:55)
[2017-08-11] MEDS: NYSTATIN 30 GM POWDER BTL TOP ×2 (08:55→21:42)
[2017-08-11] MEDS: BALSAM PERU/CASTOR OIL 60 GM TUBE TOP ×2 (08:55→21:42)
[2017-08-11 09:57] LABS: WHITE BLOOD COUNT 32.8 10^3/ul (4.8-10.8)
[2017-08-11 09:57] LABS: ABNORMAL IP MESSAGE 1; HEMATOCRIT 32.2 % (37.0-47.0); HEMOGLOBIN 9.6 g/dl (12.0-16.0); MEAN CORPUSCULAR HEMOGLOBIN 27.7 pg (29.0-33.0); MEAN CORPUSCULAR HGB CONC 29.8 g/dl (32.0-37.0); MEAN CORPUSCULAR VOLUME 92.8 fl (82.0-101.0); MEAN PLATELET VOLUME 10.4 fl (7.4-10.4); PLATELET COUNT 337 10^3/UL (140-415); RED BLOOD COUNT 3.47 10^6/ul (4.20-5.40); RED CELL DISTRIBUTION WIDTH 17.8 % (11.5-14.5)
[2017-08-11 10:00] LABS: ADD MAN DIFF? YES; POSITIVE DIFF @See below
[2017-08-11 10:24] LABS: ANION GAP 19 (8-16); ANISOCYTOSIS 2+ (0-0); BAND NEUTROPHILS #M 2.9 10^3/ul (0.0-0.6); BAND NEUTROPHILS % (M) 9 % (0-4); BLOOD UREA NITROGEN 33 mg/dl (7-20); CARBON DIOXIDE 29 mmol/L (21-31); CHLORIDE 101 mmol/L (97-110); CREATININE 0.75 mg/dl (0.44-1.00); GLUCOSE 128 mg/dl (70-220); LYMPHOCYTES #M 0.9 10^3/ul (0.8-2.9); LYMPHOCYTES % (M) 3 % (15-51); MICROCYTOSIS 1+ (0-0); MONOCYTE #M 0.9 10^3/ul (0.3-0.9); MONOCYTES % (M) 3 % (0-11); MYELOCYTES #M 0.3 10^3/ul (0.0-0.0); MYELOCYTES % (M) 1 % (0-0); PLATELET ESTIMATE NORMAL; POIKILOCYTOSIS 1+ (0-0); POLYCHROMASIA 3+ (0-0); POTASSIUM 3.7 mmol/L (3.5-5.1); SEG NEUT #M 28.5 10^3/ul (1.6-7.5); SEGMENTED NEUTROPHILS (M) % 84 % (39-77); SODIUM 145 mmol/L (135-144)
[2017-08-11] MEDS: EPOETIN 10000 UNITS/ML (NON ESRD/NON ONCOLOGY) SC (17:20)
[2017-08-11] MEDS: ALBUMIN HUMAN 25% 50 ML IV (17:34)
[2017-08-11] MEDS: SOD CHLORIDE 0.9% 500 ML IV (17:34)
[2017-08-11] MEDS ORDERED: VANCOMYCIN IV PER PHARMACY XX (19:30)
[2017-08-11] MEDS ORDERED: MEROPENEM 1 GM/50ML(PMX) 50 ML IVPB (21:30)
[2017-08-11] MEDS: MEROPENEM 500MG/50 ML (PMX) 50 ML IVPB (21:43)
[2017-08-12] MEDS: VANCOMYCIN 2 GM in SOD CHLORIDE 0.9% 500 ML IVPB (00:09)
[2017-08-12] MEDS: VANCOMYCIN HCL 250 MG/5ML POSYG GTB ×4 (00:21→17:44)
[2017-08-12] MEDS: ALBUTEROL HFA 8 GM INHALER INH ×3 (01:37→20:43)
[2017-08-12] MEDS: IPRATROPIUM (NEB) 0.5 MG/2.5 ML AMP INH ×2 (01:39→20:43)
[2017-08-12] MEDS: LEVOTHYROXINE 100 MCG TAB GTB (06:51)
[2017-08-12] MEDS: LANSOPRAZOLE 30 MG CAP GTB (06:51)
[2017-08-12] MEDS: LOSARTAN 25 MG TAB GTB (09:00)
[2017-08-12] MEDS: MULTIVIT/CA CARB/B CMPLX/FA TAB GTB (09:00)
[2017-08-12] MEDS: AMLODIPINE 10 MG TAB PO (09:00)
[2017-08-12] MEDS: ASCORBIC ACID 250 MG TAB GTB (09:00)
[2017-08-12] MEDS: COLLAGENASE 5 GM (UD JAR) TOP (09:01)
[2017-08-12] MEDS: BALSAM PERU/CASTOR OIL 60 GM TUBE TOP ×2 (09:01→21:11)
[2017-08-12] MEDS: NYSTATIN 30 GM POWDER BTL TOP ×2 (09:01→21:11)
[2017-08-12 09:06] LABS: ADD MAN DIFF? NO
[2017-08-12 09:10] LABS: WHITE BLOOD COUNT 18.3 10^3/ul (4.8-10.8)
[2017-08-12 09:10] LABS: BASOPHIL # 0.1 10^3/ul (0.0-0.1); BASOPHILS % 0.4 % (0.0-2.0); EOSINOPHILS # 0.1 10^3/ul (0.0-0.5); EOSINOPHILS % 0.3 % (0.0-7.0); HEMATOCRIT 28.6 % (37.0-47.0); HEMOGLOBIN 8.6 g/dl (12.0-16.0); LYMPHOCYTES % 10.7 % (15.0-51.0); MEAN CORPUSCULAR HEMOGLOBIN 27.8 pg (29.0-33.0); MEAN CORPUSCULAR HGB CONC 30.1 g/dl (32.0-37.0); MEAN CORPUSCULAR VOLUME 92.6 fl (82.0-101.0); MEAN PLATELET VOLUME 10.6 fl (7.4-10.4); MONOCYTE # 1.3 10^3/ul (0.3-0.9); NEUTROPHIL # 14.6 10^3/ul (1.6-7.5); NEUTROPHILS % 79.9 % (39.0-77.0); NUCLEATED RED BLOOD CELLS% 0.1 /100WBC (0.0-0.0); PLATELET COUNT 287 10^3/UL (140-415); RED BLOOD COUNT 3.09 10^6/ul (4.20-5.40); RED CELL DISTRIBUTION WIDTH 17.8 % (11.5-14.5)
[2017-08-12 09:31] LABS: ANION GAP 16 (8-16); BLOOD UREA NITROGEN 50 mg/dl (7-20); CALCIUM 10.1 mg/dl (8.4-10.2); CARBON DIOXIDE 28 mmol/L (21-31); CHLORIDE 104 mmol/L (97-110); CREATININE 0.98 mg/dl (0.44-1.00); GLUCOSE 106 mg/dl (70-220); POTASSIUM 4.1 mmol/L (3.5-5.1); SODIUM 144 mmol/L (135-144)
[2017-08-12] MEDS: ACETAMINOPHEN 650MG/20.3ML CUP GTB ×2 (12:45→18:52)
[2017-08-12] MEDS: ALBUMIN HUMAN 25% 50 ML IV (17:08)
[2017-08-12] MEDS: HEPARIN 1000 UNITS/ML 10 ML INJ CATHETER (19:23)
[2017-08-12] MEDS: MEROPENEM 500MG/50 ML (PMX) 50 ML IVPB (22:08)
[2017-08-13] MEDS: VANCOMYCIN HCL 250 MG/5ML POSYG GTB ×5 (00:03→23:12)
[2017-08-13] MEDS: ACETAMINOPHEN 650MG/20.3ML CUP GTB (01:01)
[2017-08-13] MEDS: ALBUTEROL HFA 8 GM INHALER INH ×4 (02:13→20:09)
[2017-08-13] MEDS: IPRATROPIUM (NEB) 0.5 MG/2.5 ML AMP INH ×4 (02:13→20:09)
[2017-08-13] MEDS: morphine LIQ (10 MG/5 ML) CUP GTB (03:31)
[2017-08-13] MEDS: LEVOTHYROXINE 100 MCG TAB GTB (06:17)
[2017-08-13] MEDS: LANSOPRAZOLE 30 MG CAP GTB (06:26)
[2017-08-13 08:31] LABS: ADD MAN DIFF? NO
[2017-08-13 08:36] LABS: BASOPHIL # 0.1 10^3/ul (0.0-0.1); BASOPHILS % 0.6 % (0.0-2.0); EOSINOPHILS # 0.1 10^3/ul (0.0-0.5); EOSINOPHILS % 0.7 % (0.0-7.0); HEMATOCRIT 28.9 % (37.0-47.0); HEMOGLOBIN 8.5 g/dl (12.0-16.0); LYMPHOCYTES # 1.6 10^3/ul (0.8-2.9); MEAN CORPUSCULAR HGB CONC 29.4 g/dl (32.0-37.0); MEAN CORPUSCULAR VOLUME 95.1 fl (82.0-101.0); MONOCYTE # 0.8 10^3/ul (0.3-0.9); MONOCYTES % 6.4 % (0.0-11.0); NEUTROPHIL # 9.5 10^3/ul (1.6-7.5); NEUTROPHILS % 77.6 % (39.0-77.0); PLATELET COUNT 278 10^3/UL (140-415); RED BLOOD COUNT 3.04 10^6/ul (4.20-5.40); RED CELL DISTRIBUTION WIDTH 18.2 % (11.5-14.5)
[2017-08-13 08:36] LABS: WHITE BLOOD COUNT 12.3 10^3/ul (4.8-10.8)
[2017-08-13 08:54] LABS: ANION GAP 15 (8-16); BLOOD UREA NITROGEN 32 mg/dl (7-20); CALCIUM 9.7 mg/dl (8.4-10.2); CARBON DIOXIDE 26 mmol/L (21-31); CHLORIDE 105 mmol/L (97-110); CREATININE 0.69 mg/dl (0.44-1.00); GLUCOSE 99 mg/dl (70-220); POTASSIUM 3.8 mmol/L (3.5-5.1); SODIUM 142 mmol/L (135-144)
[2017-08-13] MEDS: LOSARTAN 25 MG TAB GTB (09:00)
[2017-08-13] MEDS: COLLAGENASE 5 GM (UD JAR) TOP ×2 (09:24→20:56)
[2017-08-13] MEDS: MULTIVIT/CA CARB/B CMPLX/FA TAB GTB (09:24)
[2017-08-13] MEDS: AMLODIPINE 10 MG TAB PO (09:25)
[2017-08-13] MEDS: NYSTATIN 30 GM POWDER BTL TOP ×2 (09:26→20:56)
[2017-08-13] MEDS: BALSAM PERU/CASTOR OIL 60 GM TUBE TOP ×2 (09:26→20:56)
[2017-08-13] MEDS: ASCORBIC ACID 250 MG TAB GTB (09:26)
[2017-08-13] MEDS: AMIKACIN 350 MG in SOD CHLORIDE 0.9% 100 ML IVPB (20:55)
[2017-08-13] MEDS: MEROPENEM 500MG/50 ML (PMX) 50 ML IVPB (20:56)
[2017-08-14] MEDS: IPRATROPIUM (NEB) 0.5 MG/2.5 ML AMP INH ×4 (01:37→20:13)
[2017-08-14] MEDS: ALBUTEROL HFA 8 GM INHALER INH ×4 (01:38→20:14)
[2017-08-14] MEDS: morphine LIQ (10 MG/5 ML) CUP GTB (04:37)
[2017-08-14] MEDS: VANCOMYCIN HCL 250 MG/5ML POSYG GTB ×3 (05:50→18:38)
[2017-08-14] MEDS: LANSOPRAZOLE 30 MG CAP GTB (05:50)
[2017-08-14] MEDS: LEVOTHYROXINE 100 MCG TAB GTB (05:50)
[2017-08-14] MEDS: ALTEPLASE (CATHFLO) 2 MG INJ CATHETER ×2 (06:36→06:40)
[2017-08-14 07:38] LABS: VANCOMYCIN,RANDOM 21.6 ug/ml
[2017-08-14] MEDS: COLLAGENASE 5 GM (UD JAR) TOP (08:37)
[2017-08-14] MEDS: ASCORBIC ACID 250 MG TAB GTB (08:37)
[2017-08-14] MEDS: MULTIVIT/CA CARB/B CMPLX/FA TAB GTB (08:37)
[2017-08-14] MEDS: NYSTATIN 30 GM POWDER BTL TOP ×2 (08:37→20:52)
[2017-08-14] MEDS: BALSAM PERU/CASTOR OIL 60 GM TUBE TOP ×2 (08:37→20:52)
[2017-08-14] MEDS: AMLODIPINE 10 MG TAB PO (08:37)
[2017-08-14] MEDS: LOSARTAN 25 MG TAB GTB (08:52)
[2017-08-14] MEDS: ACETAMINOPHEN 650MG/20.3ML CUP GTB (11:15)
[2017-08-14] MEDS: MEROPENEM 500MG/50 ML (PMX) 50 ML IVPB (20:52)
[2017-08-14] MEDS: SOD CHLORIDE 0.9% 500 ML IV (20:54)
[2017-08-14] MEDS: SOD CHLORIDE 0.9% 1,000 ML IV (20:55)
[2017-08-15] MEDS: VANCOMYCIN HCL 250 MG/5ML POSYG GTB ×4 (00:09→18:34)
[2017-08-15] MEDS: IPRATROPIUM (NEB) 0.5 MG/2.5 ML AMP INH ×4 (01:25→20:13)
[2017-08-15] MEDS: ALBUTEROL HFA 8 GM INHALER INH ×4 (01:26→20:13)
[2017-08-15] MEDS: LEVOTHYROXINE 100 MCG TAB GTB (05:31)
[2017-08-15] MEDS: LANSOPRAZOLE 30 MG CAP GTB (05:31)
[2017-08-15] MEDS: SOD CHLORIDE 0.9% 1,000 ML IV ×2 (07:00→17:32)
[2017-08-15] MEDS: LOSARTAN 25 MG TAB GTB (09:00)
[2017-08-15] MEDS: AMLODIPINE 10 MG TAB PO (09:00)
[2017-08-15] MEDS: COLLAGENASE 5 GM (UD JAR) TOP (09:00)
[2017-08-15 11:56] LABS: ADD MAN DIFF? NO
[2017-08-15 11:58] LABS: BASOPHIL # 0.1 10^3/ul (0.0-0.1); BASOPHILS % 0.8 % (0.0-2.0); EOSINOPHILS # 0.1 10^3/ul (0.0-0.5); EOSINOPHILS % 0.9 % (0.0-7.0); HEMATOCRIT 28.7 % (37.0-47.0); HEMOGLOBIN 8.5 g/dl (12.0-16.0); LYMPHOCYTES # 0.9 10^3/ul (0.8-2.9); LYMPHOCYTES % 8.5 % (15.0-51.0); MEAN CORPUSCULAR HEMOGLOBIN 27.3 pg (29.0-33.0); MEAN CORPUSCULAR HGB CONC 29.6 g/dl (32.0-37.0); MEAN CORPUSCULAR VOLUME 92.3 fl (82.0-101.0); MEAN PLATELET VOLUME 10.7 fl (7.4-10.4); MONOCYTE # 0.5 10^3/ul (0.3-0.9); NEUTROPHIL # 8.2 10^3/ul (1.6-7.5); NEUTROPHILS % 82.6 % (39.0-77.0); PLATELET COUNT 298 10^3/UL (140-415); RED BLOOD COUNT 3.11 10^6/ul (4.20-5.40); RED CELL DISTRIBUTION WIDTH 17.6 % (11.5-14.5)
[2017-08-15 12:22] LABS: BLOOD UREA NITROGEN 50 mg/dl (7-20); CALCIUM 9.5 mg/dl (8.4-10.2); CARBON DIOXIDE 25 mmol/L (21-31); CHLORIDE 103 mmol/L (97-110); CREATININE 0.93 mg/dl (0.44-1.00); GLUCOSE 80 mg/dl (70-220); SODIUM 141 mmol/L (135-144)
[2017-08-15 12:23] LABS: ANION GAP 17 (8-16); POTASSIUM 4.3 mmol/L (3.5-5.1)
[2017-08-15] MEDS: HEPARIN 1000 UNITS/ML 10 ML INJ CATHETER (13:25)
[2017-08-15] MEDS: MULTIVIT/CA CARB/B CMPLX/FA TAB GTB (13:58)
[2017-08-15] MEDS: ASCORBIC ACID 250 MG TAB GTB (13:58)
[2017-08-15] MEDS: BALSAM PERU/CASTOR OIL 60 GM TUBE TOP ×2 (13:59→21:00)
[2017-08-15] MEDS: NYSTATIN 30 GM POWDER BTL TOP ×2 (13:59→21:00)
[2017-08-15] MEDS: VANCOMYCIN 1 GM 250 ML IVPB (14:06)
[2017-08-15] MEDS: AMIKACIN 350 MG in SOD CHLORIDE 0.9% 100 ML IVPB (18:34)
[2017-08-15] MEDS: ACETAMINOPHEN 650MG/20.3ML CUP GTB (18:51)
[2017-08-15] MEDS: morphine LIQ (10 MG/5 ML) CUP GTB (21:04)
[2017-08-15] MEDS: MEROPENEM 500MG/50 ML (PMX) 50 ML IVPB (21:05)
[2017-08-16] MEDS: IPRATROPIUM (NEB) 0.5 MG/2.5 ML AMP INH ×4 (01:15→20:00)
[2017-08-16] MEDS: ALBUTEROL HFA 8 GM INHALER INH ×4 (01:16→20:00)
[2017-08-16] MEDS: SOD CHLORIDE 0.9% 1,000 ML IV ×3 (01:23→23:00)
[2017-08-16] MEDS: ACETAMINOPHEN 650MG/20.3ML CUP GTB (06:27)
[2017-08-16] MEDS: LEVOTHYROXINE 100 MCG TAB GTB (06:35)
[2017-08-16] MEDS: LANSOPRAZOLE 30 MG CAP GTB (06:35)
[2017-08-16] MEDS: AMLODIPINE 10 MG TAB PO (09:00)
[2017-08-16] MEDS: LOSARTAN 25 MG TAB GTB (09:00)
[2017-08-16] MEDS: MULTIVIT/CA CARB/B CMPLX/FA TAB GTB (09:24)
[2017-08-16] MEDS: ASCORBIC ACID 250 MG TAB GTB (09:24)
[2017-08-16] MEDS: COLLAGENASE 5 GM (UD JAR) TOP (09:27)
[2017-08-16] MEDS: NYSTATIN 30 GM POWDER BTL TOP ×2 (09:27→23:47)
[2017-08-16] MEDS: BALSAM PERU/CASTOR OIL 60 GM TUBE TOP ×2 (09:27→23:47)
[2017-08-16 09:33] LABS: ADD MAN DIFF? NO
[2017-08-16 09:45] LABS: WHITE BLOOD COUNT 17.3 10^3/ul (4.8-10.8)
[2017-08-16 09:45] LABS: BASOPHIL # 0.1 10^3/ul (0.0-0.1); BASOPHILS % 0.3 % (0.0-2.0); EOSINOPHILS # 0.1 10^3/ul (0.0-0.5); EOSINOPHILS % 0.5 % (0.0-7.0); HEMATOCRIT 24.9 % (37.0-47.0); HEMOGLOBIN 7.5 g/dl (12.0-16.0); LYMPHOCYTES # 1.7 10^3/ul (0.8-2.9); LYMPHOCYTES % 10.1 % (15.0-51.0); MEAN CORPUSCULAR HEMOGLOBIN 27.6 pg (29.0-33.0); MEAN CORPUSCULAR HGB CONC 30.1 g/dl (32.0-37.0); MEAN CORPUSCULAR VOLUME 91.5 fl (82.0-101.0); MEAN PLATELET VOLUME 10.8 fl (7.4-10.4); MONOCYTE # 1.3 10^3/ul (0.3-0.9); MONOCYTES % 7.4 % (0.0-11.0); NEUTROPHILS % 80.7 % (39.0-77.0); PLATELET COUNT 251 10^3/UL (140-415); RED BLOOD COUNT 2.72 10^6/ul (4.20-5.40); RED CELL DISTRIBUTION WIDTH 17.5 % (11.5-14.5)
[2017-08-16 09:59] LABS: ANION GAP 15 (8-16); BLOOD UREA NITROGEN 32 mg/dl (7-20); CALCIUM 9.2 mg/dl (8.4-10.2); CARBON DIOXIDE 23 mmol/L (21-31); CHLORIDE 106 mmol/L (97-110); CREATININE 0.85 mg/dl (0.44-1.00); GLUCOSE 66 mg/dl (70-220); POTASSIUM 3.9 mmol/L (3.5-5.1); SODIUM 140 mmol/L (135-144)
[2017-08-16 14:19] LABS: IMMEDIATE SPIN CROSSMATCH 1 6
[2017-08-16] MEDS: EPOETIN 10000 UNITS/ML (NON ESRD/NON ONCOLOGY) SC (18:52)
[2017-08-16] MEDS: INDOMETHACIN 50 MG SUPP PR (19:30)
[2017-08-16] MEDS ORDERED: CEFAZOLIN 1 GM INJ (20:08)
[2017-08-16] MEDS: MEROPENEM 500MG/50 ML (PMX) 50 ML IVPB (23:47)
[2017-08-17] MEDS: ALBUTEROL HFA 8 GM INHALER INH ×3 (02:41→13:42)
[2017-08-17] MEDS: IPRATROPIUM (NEB) 0.5 MG/2.5 ML AMP INH ×3 (02:41→13:41)
[2017-08-17] MEDS: ACETAMINOPHEN 650MG/20.3ML CUP GTB ×2 (04:37→13:19)
[2017-08-17] MEDS: INDOMETHACIN 50 MG SUPP PR (05:16)
[2017-08-17] MEDS: LANSOPRAZOLE 30 MG CAP GTB (06:40)
[2017-08-17] MEDS: LEVOTHYROXINE 100 MCG TAB GTB (06:40)
[2017-08-17 08:49] LABS: ADD MAN DIFF? NO
[2017-08-17 08:59] LABS: WHITE BLOOD COUNT 14.4 10^3/ul (4.8-10.8)
[2017-08-17 08:59] LABS: BASOPHIL # 0.1 10^3/ul (0.0-0.1); BASOPHILS % 0.3 % (0.0-2.0); EOSINOPHILS % 0.3 % (0.0-7.0); HEMATOCRIT 35.7 % (37.0-47.0); HEMOGLOBIN 11.2 g/dl (12.0-16.0); LYMPHOCYTES # 0.9 10^3/ul (0.8-2.9); LYMPHOCYTES % 6.6 % (15.0-51.0); MEAN CORPUSCULAR HEMOGLOBIN 28.1 pg (29.0-33.0); MEAN CORPUSCULAR HGB CONC 31.4 g/dl (32.0-37.0); MEAN CORPUSCULAR VOLUME 89.7 fl (82.0-101.0); MEAN PLATELET VOLUME 10.6 fl (7.4-10.4); MONOCYTE # 0.8 10^3/ul (0.3-0.9); MONOCYTES % 5.2 % (0.0-11.0); NEUTROPHIL # 12.4 10^3/ul (1.6-7.5); NEUTROPHILS % 86.4 % (39.0-77.0); PLATELET COUNT 260 10^3/UL (140-415); RED BLOOD COUNT 3.98 10^6/ul (4.20-5.40); RED CELL DISTRIBUTION WIDTH 16.5 % (11.5-14.5)
[2017-08-17] MEDS: SOD CHLORIDE 0.9% 1,000 ML IV ×2 (09:00→18:28)
[2017-08-17 09:12] LABS: LACTIC ACID 0.8 mmol/L (0.5-2.0)
[2017-08-17 09:23] LABS: ANION GAP 21 (8-16); BLOOD UREA NITROGEN 37 mg/dl (7-20); CALCIUM 9.7 mg/dl (8.4-10.2); CARBON DIOXIDE 21 mmol/L (21-31); CHLORIDE 105 mmol/L (97-110); CREATININE 1.07 mg/dl (0.44-1.00); GLUCOSE 109 mg/dl (70-220); POTASSIUM 3.8 mmol/L (3.5-5.1); SODIUM 143 mmol/L (135-144)
[2017-08-17] MEDS: HEPARIN 1000 UNITS/ML 10 ML INJ CATHETER (11:12)
[2017-08-17] MEDS: LOSARTAN 25 MG TAB GTB (13:18)
[2017-08-17] MEDS: MULTIVIT/CA CARB/B CMPLX/FA TAB GTB (13:18)
[2017-08-17] MEDS: AMLODIPINE 10 MG TAB PO (13:19)
[2017-08-17] MEDS: ASCORBIC ACID 250 MG TAB GTB (13:19)
[2017-08-17] MEDS: COLLAGENASE 5 GM (UD JAR) TOP (13:19)
[2017-08-17] MEDS: BALSAM PERU/CASTOR OIL 60 GM TUBE TOP ×2 (13:20→22:06)
[2017-08-17] MEDS: NYSTATIN 30 GM POWDER BTL TOP ×2 (13:20→22:06)
[2017-08-17] MEDS: morphine LIQ (10 MG/5 ML) CUP GTB (17:36)
[2017-08-17] MEDS: AMIKACIN 350 MG in SOD CHLORIDE 0.9% 100 ML IVPB (18:24)
[2017-08-17] MEDS: ALBUTEROL/IPRATROPIUM (NEB) 3 ML AMP HHN (20:50)
[2017-08-17] MEDS: MEROPENEM 500MG/50 ML (PMX) 50 ML IVPB (22:06)
[2017-08-18] MEDS: SOD CHLORIDE 0.9% 1,000 ML IV ×2 (00:57→17:26)
[2017-08-18] MEDS: ACETAMINOPHEN 650MG/20.3ML CUP GTB ×2 (01:34→13:23)
[2017-08-18] MEDS: ALBUTEROL/IPRATROPIUM (NEB) 3 ML AMP HHN ×4 (01:38→20:44)
[2017-08-18] MEDS: LEVOTHYROXINE 100 MCG TAB GTB (06:08)
[2017-08-18 07:51] LABS: ADD MAN DIFF? NO
[2017-08-18 07:56] LABS: BASOPHIL # 0.1 10^3/ul (0.0-0.1); BASOPHILS % 0.5 % (0.0-2.0); EOSINOPHILS # 0.1 10^3/ul (0.0-0.5); EOSINOPHILS % 0.9 % (0.0-7.0); HEMOGLOBIN 10.5 g/dl (12.0-16.0); LYMPHOCYTES # 1.3 10^3/ul (0.8-2.9); LYMPHOCYTES % 12.9 % (15.0-51.0); MEAN CORPUSCULAR HEMOGLOBIN 28.1 pg (29.0-33.0); MEAN CORPUSCULAR HGB CONC 31.8 g/dl (32.0-37.0); MEAN CORPUSCULAR VOLUME 88.2 fl (82.0-101.0); MEAN PLATELET VOLUME 10.4 fl (7.4-10.4); MONOCYTE # 0.8 10^3/ul (0.3-0.9); MONOCYTES % 7.8 % (0.0-11.0); NEUTROPHIL # 7.6 10^3/ul (1.6-7.5); PLATELET COUNT 236 10^3/UL (140-415); RED BLOOD COUNT 3.74 10^6/ul (4.20-5.40); RED CELL DISTRIBUTION WIDTH 16.2 % (11.5-14.5)
[2017-08-18 07:56] LABS: WHITE BLOOD COUNT 9.8 10^3/ul (4.8-10.8)
[2017-08-18 08:16] LABS: ANION GAP 16 (8-16); BLOOD UREA NITROGEN 20 mg/dl (7-20); CALCIUM 9.2 mg/dl (8.4-10.2); CARBON DIOXIDE 23 mmol/L (21-31); CHLORIDE 105 mmol/L (97-110); CREATININE 0.68 mg/dl (0.44-1.00); GLUCOSE 92 mg/dl (70-220); POTASSIUM 3.1 mmol/L (3.5-5.1); SODIUM 141 mmol/L (135-144)
[2017-08-18] MEDS: LANSOPRAZOLE 30 MG CAP GTB (08:35)
[2017-08-18] MEDS: ASCORBIC ACID 250 MG TAB GTB (09:19)
[2017-08-18] MEDS: AMLODIPINE 10 MG TAB PO (09:20)
[2017-08-18] MEDS: MULTIVIT/CA CARB/B CMPLX/FA TAB GTB (09:20)
[2017-08-18] MEDS: LOSARTAN 25 MG TAB GTB (09:20)
[2017-08-18] MEDS: NYSTATIN 30 GM POWDER BTL TOP ×2 (09:20→20:50)
[2017-08-18] MEDS: BALSAM PERU/CASTOR OIL 60 GM TUBE TOP ×2 (09:21→20:50)
[2017-08-18] MEDS: COLLAGENASE 5 GM (UD JAR) TOP (09:21)
[2017-08-18] MEDS: morphine LIQ (10 MG/5 ML) CUP GTB (13:10)
[2017-08-18] MEDS: POTASSIUM CHLORIDE 20 MEQ POWDER FOR ORAL SOLN GTB (13:24)
[2017-08-18] MEDS: EPOETIN 10000 UNITS/ML (NON ESRD/NON ONCOLOGY) SC (17:29)
[2017-08-18] MEDS: MEROPENEM 500MG/50 ML (PMX) 50 ML IVPB (20:49)
[2017-08-19] MEDS: ALBUTEROL/IPRATROPIUM (NEB) 3 ML AMP HHN ×4 (01:42→19:49)
[2017-08-19] MEDS: SOD CHLORIDE 0.9% 1,000 ML IV ×2 (02:00→11:00)
[2017-08-19] MEDS: ACETAMINOPHEN 650MG/20.3ML CUP GTB ×2 (02:58→20:48)
[2017-08-19] MEDS: LEVOTHYROXINE 100 MCG TAB GTB (06:05)
[2017-08-19] MEDS: LANSOPRAZOLE 30 MG CAP GTB (06:05)
[2017-08-19 06:50] LABS: ADD MAN DIFF? NO
[2017-08-19 07:07] LABS: BASOPHIL # 0.1 10^3/ul (0.0-0.1); BASOPHILS % 0.5 % (0.0-2.0); EOSINOPHILS % 0.2 % (0.0-7.0); HEMATOCRIT 35.3 % (37.0-47.0); LYMPHOCYTES # 1.1 10^3/ul (0.8-2.9); MEAN CORPUSCULAR HEMOGLOBIN 28.1 pg (29.0-33.0); MEAN CORPUSCULAR HGB CONC 31.2 g/dl (32.0-37.0); MEAN CORPUSCULAR VOLUME 90.3 fl (82.0-101.0); MEAN PLATELET VOLUME 10.3 fl (7.4-10.4); MONOCYTE # 0.8 10^3/ul (0.3-0.9); MONOCYTES % 5.7 % (0.0-11.0); NEUTROPHIL # 11.1 10^3/ul (1.6-7.5); NEUTROPHILS % 84.2 % (39.0-77.0); PLATELET COUNT 245 10^3/UL (140-415); RED BLOOD COUNT 3.91 10^6/ul (4.20-5.40); RED CELL DISTRIBUTION WIDTH 16.4 % (11.5-14.5)
[2017-08-19 07:07] LABS: WHITE BLOOD COUNT 13.2 10^3/ul (4.8-10.8)
[2017-08-19 07:19] LABS: ANION GAP 14 (8-16); BLOOD UREA NITROGEN 30 mg/dl (7-20); CALCIUM 9.6 mg/dl (8.4-10.2); CARBON DIOXIDE 22 mmol/L (21-31); CHLORIDE 108 mmol/L (97-110); CREATININE 0.91 mg/dl (0.44-1.00); GLUCOSE 111 mg/dl (70-220); POTASSIUM 3.3 mmol/L (3.5-5.1); SODIUM 141 mmol/L (135-144)
[2017-08-19] MEDS: BALSAM PERU/CASTOR OIL 60 GM TUBE TOP ×2 (09:00→20:40)
[2017-08-19] MEDS: NYSTATIN 30 GM POWDER BTL TOP ×2 (09:00→20:40)
[2017-08-19] MEDS: ASCORBIC ACID 250 MG TAB GTB (09:00)
[2017-08-19] MEDS: COLLAGENASE 5 GM (UD JAR) TOP (09:00)
[2017-08-19] MEDS: HEPARIN 1000 UNITS/ML 10 ML INJ CATHETER (10:59)
[2017-08-19] MEDS: LOSARTAN 25 MG TAB GTB (14:18)
[2017-08-19] MEDS: MULTIVIT/CA CARB/B CMPLX/FA TAB GTB (14:19)
[2017-08-19] MEDS: AMLODIPINE 10 MG TAB PO (14:20)
[2017-08-19] MEDS: POTASSIUM CHLORIDE 20 MEQ POWDER FOR ORAL SOLN GTB (14:22)
[2017-08-19] MEDS: AMIKACIN 350 MG in SOD CHLORIDE 0.9% 100 ML IVPB (18:18)
[2017-08-19] MEDS: MEROPENEM 500MG/50 ML (PMX) 50 ML IVPB (20:41)
[2017-08-19] MEDS: morphine LIQ (10 MG/5 ML) CUP GTB (22:07)
[2017-08-20] MEDS: ALBUTEROL/IPRATROPIUM (NEB) 3 ML AMP HHN ×4 (03:29→19:28)
[2017-08-20] MEDS: LANSOPRAZOLE 30 MG CAP GTB (06:15)
[2017-08-20] MEDS: LEVOTHYROXINE 100 MCG TAB GTB (06:15)
[2017-08-20 06:42] LABS: ADD MAN DIFF? NO
[2017-08-20 06:54] LABS: WHITE BLOOD COUNT 15.8 10^3/ul (4.8-10.8)
[2017-08-20 06:54] LABS: BASOPHIL # 0.1 10^3/ul (0.0-0.1); BASOPHILS % 0.4 % (0.0-2.0); EOSINOPHILS # 0.1 10^3/ul (0.0-0.5); EOSINOPHILS % 0.4 % (0.0-7.0); HEMATOCRIT 33.6 % (37.0-47.0); HEMOGLOBIN 10.5 g/dl (12.0-16.0); LYMPHOCYTES # 1.6 10^3/ul (0.8-2.9); LYMPHOCYTES % 10.1 % (15.0-51.0); MEAN CORPUSCULAR HEMOGLOBIN 28.5 pg (29.0-33.0); MEAN CORPUSCULAR HGB CONC 31.3 g/dl (32.0-37.0); MEAN CORPUSCULAR VOLUME 91.1 fl (82.0-101.0); MEAN PLATELET VOLUME 10.1 fl (7.4-10.4); MONOCYTE # 0.8 10^3/ul (0.3-0.9); MONOCYTES % 4.9 % (0.0-11.0); NEUTROPHIL # 13.1 10^3/ul (1.6-7.5); NEUTROPHILS % 83.1 % (39.0-77.0); PLATELET COUNT 226 10^3/UL (140-415); RED BLOOD COUNT 3.69 10^6/ul (4.20-5.40); RED CELL DISTRIBUTION WIDTH 16.5 % (11.5-14.5)
[2017-08-20 07:10] LABS: ANION GAP 11 (8-16); BLOOD UREA NITROGEN 24 mg/dl (7-20); CALCIUM 9.4 mg/dl (8.4-10.2); CARBON DIOXIDE 26 mmol/L (21-31); CHLORIDE 106 mmol/L (97-110); CREATININE 0.68 mg/dl (0.44-1.00); GLUCOSE 108 mg/dl (70-220); POTASSIUM 3.7 mmol/L (3.5-5.1); SODIUM 139 mmol/L (135-144)
[2017-08-20 08:11] LABS: MAGNESIUM 2.2 mg/dl (1.7-2.5)
[2017-08-20] MEDS: MULTIVIT/CA CARB/B CMPLX/FA TAB GTB (08:57)
[2017-08-20] MEDS: LOSARTAN 25 MG TAB GTB (08:57)
[2017-08-20] MEDS: ASCORBIC ACID 250 MG TAB GTB (08:57)
[2017-08-20] MEDS: BALSAM PERU/CASTOR OIL 60 GM TUBE TOP ×2 (08:57→20:53)
[2017-08-20] MEDS: AMLODIPINE 10 MG TAB PO (08:57)
[2017-08-20] MEDS: COLLAGENASE 5 GM (UD JAR) TOP (08:58)
[2017-08-20] MEDS: NYSTATIN 30 GM POWDER BTL TOP ×2 (08:58→20:53)
[2017-08-20] MEDS: MEROPENEM 500MG/50 ML (PMX) 50 ML IVPB (20:54)
[2017-08-21] MEDS: ALBUTEROL/IPRATROPIUM (NEB) 3 ML AMP HHN ×4 (01:35→20:31)
[2017-08-21] MEDS: LEVOTHYROXINE 100 MCG TAB GTB (06:10)
[2017-08-21] MEDS: LANSOPRAZOLE 30 MG CAP GTB (06:16)
[2017-08-21 07:34] LABS: ANION GAP 16 (8-16); BLOOD UREA NITROGEN 35 mg/dl (7-20); CALCIUM 10.1 mg/dl (8.4-10.2); CARBON DIOXIDE 24 mmol/L (21-31); CHLORIDE 104 mmol/L (97-110); CREATININE 0.84 mg/dl (0.44-1.00); GLUCOSE 91 mg/dl (70-220); POTASSIUM 3.9 mmol/L (3.5-5.1); SODIUM 140 mmol/L (135-144)
[2017-08-21] MEDS: ASCORBIC ACID 250 MG TAB GTB (09:38)
[2017-08-21] MEDS: MULTIVIT/CA CARB/B CMPLX/FA TAB GTB (09:38)
[2017-08-21] MEDS: AMLODIPINE 10 MG TAB PO (09:38)
[2017-08-21] MEDS: LOSARTAN 25 MG TAB GTB (09:38)
[2017-08-21] MEDS: NYSTATIN 30 GM POWDER BTL TOP ×2 (09:39→21:10)
[2017-08-21] MEDS: COLLAGENASE 5 GM (UD JAR) TOP (09:39)
[2017-08-21] MEDS: BALSAM PERU/CASTOR OIL 60 GM TUBE TOP ×2 (09:39→21:11)
[2017-08-21] MEDS: ACETAMINOPHEN 650MG/20.3ML CUP GTB (18:53)
[2017-08-21] MEDS: MEROPENEM 500MG/50 ML (PMX) 50 ML IVPB (21:11)
[2017-08-22] MEDS: ALBUTEROL/IPRATROPIUM (NEB) 3 ML AMP HHN ×4 (02:36→19:54)
[2017-08-22] MEDS: ACETAMINOPHEN 650MG/20.3ML CUP GTB ×3 (03:23→17:02)
[2017-08-22] MEDS: LANSOPRAZOLE 30 MG CAP GTB (06:46)
[2017-08-22] MEDS: LEVOTHYROXINE 100 MCG TAB GTB (06:46)
[2017-08-22 07:20] LABS: ADD MAN DIFF? NO
[2017-08-22 07:25] LABS: BASOPHIL # 0.1 10^3/ul (0.0-0.1); BASOPHILS % 0.7 % (0.0-2.0); EOSINOPHILS # 0.2 10^3/ul (0.0-0.5); EOSINOPHILS % 1.9 % (0.0-7.0); HEMATOCRIT 34.6 % (37.0-47.0); HEMOGLOBIN 10.5 g/dl (12.0-16.0); LYMPHOCYTES # 1.5 10^3/ul (0.8-2.9); LYMPHOCYTES % 15.3 % (15.0-51.0); MEAN CORPUSCULAR HEMOGLOBIN 27.8 pg (29.0-33.0); MEAN CORPUSCULAR HGB CONC 30.3 g/dl (32.0-37.0); MEAN CORPUSCULAR VOLUME 91.5 fl (82.0-101.0); MEAN PLATELET VOLUME 10.1 fl (7.4-10.4); MONOCYTE # 0.7 10^3/ul (0.3-0.9); MONOCYTES % 7.2 % (0.0-11.0); NEUTROPHIL # 7.2 10^3/ul (1.6-7.5); NEUTROPHILS % 72.4 % (39.0-77.0); NUCLEATED RED BLOOD CELLS% 0.2 /100WBC (0.0-0.0); PLATELET COUNT 238 10^3/UL (140-415); RED BLOOD COUNT 3.78 10^6/ul (4.20-5.40); RED CELL DISTRIBUTION WIDTH 16.8 % (11.5-14.5)
[2017-08-22 07:25] LABS: WHITE BLOOD COUNT 9.9 10^3/ul (4.8-10.8)
[2017-08-22 07:51] LABS: BLOOD UREA NITROGEN 48 mg/dl (7-20); CALCIUM 10.6 mg/dl (8.4-10.2); CARBON DIOXIDE 23 mmol/L (21-31); CHLORIDE 104 mmol/L (97-110); CREATININE 1.13 mg/dl (0.44-1.00); GLUCOSE 110 mg/dl (70-220); POTASSIUM 3.9 mmol/L (3.5-5.1)
[2017-08-22 08:00] LABS: ANION GAP 17 (8-16)
[2017-08-22 08:01] LABS: SODIUM 140 mmol/L (135-144)
[2017-08-22] MEDS: COLLAGENASE 5 GM (UD JAR) TOP (09:02)
[2017-08-22] MEDS: ASCORBIC ACID 250 MG TAB GTB (09:02)
[2017-08-22] MEDS: NYSTATIN 30 GM POWDER BTL TOP ×2 (09:02→20:44)
[2017-08-22] MEDS: BALSAM PERU/CASTOR OIL 60 GM TUBE TOP ×2 (09:02→20:44)
[2017-08-22] MEDS: AMLODIPINE 10 MG TAB PO (09:03)
[2017-08-22] MEDS: LOSARTAN 25 MG TAB GTB (09:04)
[2017-08-22] MEDS: MULTIVIT/CA CARB/B CMPLX/FA TAB GTB (09:06)
[2017-08-22] MEDS: HEPARIN 1000 UNITS/ML 10 ML INJ CATHETER (13:26)
[2017-08-22] MEDS: morphine LIQ (10 MG/5 ML) CUP GTB (20:44)
[2017-08-23] MEDS: ALBUTEROL/IPRATROPIUM (NEB) 3 ML AMP HHN ×4 (01:12→19:32)
[2017-08-23] MEDS: LANSOPRAZOLE 30 MG CAP GTB (05:30)
[2017-08-23] MEDS: ACETAMINOPHEN 650MG/20.3ML CUP GTB ×2 (05:30→17:42)
[2017-08-23] MEDS: LEVOTHYROXINE 100 MCG TAB GTB (05:30)
[2017-08-23 07:46] LABS: ADD MAN DIFF? NO
[2017-08-23 07:48] LABS: BASOPHIL # 0.1 10^3/ul (0.0-0.1); BASOPHILS % 0.4 % (0.0-2.0); EOSINOPHILS # 0.1 10^3/ul (0.0-0.5); EOSINOPHILS % 0.7 % (0.0-7.0); HEMATOCRIT 33.1 % (37.0-47.0); HEMOGLOBIN 10.2 g/dl (12.0-16.0); LYMPHOCYTES # 1.7 10^3/ul (0.8-2.9); LYMPHOCYTES % 11.5 % (15.0-51.0); MEAN CORPUSCULAR HEMOGLOBIN 27.9 pg (29.0-33.0); MEAN CORPUSCULAR HGB CONC 30.8 g/dl (32.0-37.0); MEAN CORPUSCULAR VOLUME 90.4 fl (82.0-101.0); MEAN PLATELET VOLUME 10.2 fl (7.4-10.4); MONOCYTES % 7.1 % (0.0-11.0); NEUTROPHIL # 11.3 10^3/ul (1.6-7.5); PLATELET COUNT 219 10^3/UL (140-415); RED BLOOD COUNT 3.66 10^6/ul (4.20-5.40); RED CELL DISTRIBUTION WIDTH 17.1 % (11.5-14.5)
[2017-08-23 07:48] LABS: WHITE BLOOD COUNT 14.3 10^3/ul (4.8-10.8)
[2017-08-23 08:11] LABS: ANION GAP 12 (8-16); BLOOD UREA NITROGEN 31 mg/dl (7-20); CALCIUM 10.1 mg/dl (8.4-10.2); CARBON DIOXIDE 27 mmol/L (21-31); CHLORIDE 103 mmol/L (97-110); CREATININE 0.84 mg/dl (0.44-1.00); GLUCOSE 118 mg/dl (70-220); POTASSIUM 3.6 mmol/L (3.5-5.1); SODIUM 138 mmol/L (135-144)
[2017-08-23] MEDS: COLLAGENASE 5 GM (UD JAR) TOP (09:25)
[2017-08-23] MEDS: BALSAM PERU/CASTOR OIL 60 GM TUBE TOP ×2 (09:25→20:33)
[2017-08-23] MEDS: NYSTATIN 30 GM POWDER BTL TOP ×2 (09:25→21:00)
[2017-08-23] MEDS: ASCORBIC ACID 250 MG TAB GTB (09:26)
[2017-08-23] MEDS: AMLODIPINE 10 MG TAB PO (09:26)
[2017-08-23] MEDS: LOSARTAN 25 MG TAB GTB (09:26)
[2017-08-23] MEDS: MULTIVIT/CA CARB/B CMPLX/FA TAB GTB (09:27)
[2017-08-23] MEDS: AMIKACIN 350 MG in SOD CHLORIDE 0.9% 100 ML IVPB (12:57)
[2017-08-23 15:20] LABS: LACTIC ACID 1.5 mmol/L (0.5-2.0)
[2017-08-23] MEDS: EPOETIN 10000 UNITS/ML (NON ESRD/NON ONCOLOGY) SC (17:42)
[2017-08-24] MEDS: ALBUTEROL/IPRATROPIUM (NEB) 3 ML AMP HHN ×4 (01:03→19:17)
[2017-08-24] MEDS: LANSOPRAZOLE 30 MG CAP GTB (05:13)
[2017-08-24] MEDS: LEVOTHYROXINE 100 MCG TAB GTB (05:13)
[2017-08-24 07:19] LABS: ADD MAN DIFF? NO
[2017-08-24 07:23] LABS: BASOPHIL # 0.1 10^3/ul (0.0-0.1); BASOPHILS % 0.4 % (0.0-2.0); EOSINOPHILS # 0.1 10^3/ul (0.0-0.5); EOSINOPHILS % 0.8 % (0.0-7.0); HEMOGLOBIN 10.2 g/dl (12.0-16.0); LYMPHOCYTES # 1.3 10^3/ul (0.8-2.9); LYMPHOCYTES % 9.1 % (15.0-51.0); MEAN CORPUSCULAR HGB CONC 30.9 g/dl (32.0-37.0); MEAN CORPUSCULAR VOLUME 90.7 fl (82.0-101.0); MEAN PLATELET VOLUME 10.6 fl (7.4-10.4); MONOCYTES % 6.6 % (0.0-11.0); NEUTROPHIL # 11.7 10^3/ul (1.6-7.5); NEUTROPHILS % 81.7 % (39.0-77.0); PLATELET COUNT 230 10^3/UL (140-415); RED BLOOD COUNT 3.64 10^6/ul (4.20-5.40); RED CELL DISTRIBUTION WIDTH 17.1 % (11.5-14.5)
[2017-08-24 07:23] LABS: WHITE BLOOD COUNT 14.3 10^3/ul (4.8-10.8)
[2017-08-24 07:56] LABS: ANION GAP 15 (8-16); BLOOD UREA NITROGEN 46 mg/dl (7-20); CALCIUM 10.8 mg/dl (8.4-10.2); CARBON DIOXIDE 24 mmol/L (21-31); CHLORIDE 101 mmol/L (97-110); CREATININE 1.08 mg/dl (0.44-1.00); GLUCOSE 91 mg/dl (70-220); POTASSIUM 3.8 mmol/L (3.5-5.1); SODIUM 136 mmol/L (135-144)
[2017-08-24] MEDS: LOSARTAN 25 MG TAB GTB (08:30)
[2017-08-24] MEDS: AMLODIPINE 10 MG TAB PO (08:31)
[2017-08-24] MEDS: ASCORBIC ACID 250 MG TAB GTB (08:31)
[2017-08-24] MEDS: MULTIVIT/CA CARB/B CMPLX/FA TAB GTB (08:31)
[2017-08-24] MEDS: NYSTATIN 30 GM POWDER BTL TOP ×2 (12:24→21:43)
[2017-08-24] MEDS: BALSAM PERU/CASTOR OIL 60 GM TUBE TOP ×2 (12:24→21:43)
[2017-08-24] MEDS: COLLAGENASE 5 GM (UD JAR) TOP (12:24)
[2017-08-24] MEDS: ALBUMIN HUMAN 25% 100 ML IV (17:55)
[2017-08-24] MEDS: MIDODRINE 5 MG TAB GTB (18:14)
[2017-08-24] MEDS: HEPARIN 1000 UNITS/ML 10 ML INJ CATHETER (21:05)
[2017-08-24] MEDS: AMIKACIN 350 MG in SOD CHLORIDE 0.9% 100 ML IVPB (21:44)
[2017-08-25] MEDS: ALBUTEROL/IPRATROPIUM (NEB) 3 ML AMP HHN ×4 (01:08→20:18)
[2017-08-25] MEDS: LEVOTHYROXINE 100 MCG TAB GTB (07:43)
[2017-08-25] MEDS: LANSOPRAZOLE 30 MG CAP GTB (07:43)
[2017-08-25] MEDS: NYSTATIN 30 GM POWDER BTL TOP ×2 (10:03→21:59)
[2017-08-25] MEDS: BALSAM PERU/CASTOR OIL 60 GM TUBE TOP ×2 (10:03→21:59)
[2017-08-25] MEDS: COLLAGENASE 5 GM (UD JAR) TOP (10:03)
[2017-08-25] MEDS: MULTIVIT/CA CARB/B CMPLX/FA TAB GTB (10:04)
[2017-08-25] MEDS: ASCORBIC ACID 250 MG TAB GTB (10:04)
[2017-08-25] MEDS: AMLODIPINE 10 MG TAB PO (10:05)
[2017-08-25] MEDS: LOSARTAN 25 MG TAB GTB (10:05)
[2017-08-25] MEDS: EPOETIN 10000 UNITS/ML (NON ESRD/NON ONCOLOGY) SC (17:30)
[2017-08-25] MEDS: ACETAMINOPHEN 650MG/20.3ML CUP GTB (21:59)
[2017-08-25] MEDS: MEROPENEM 500MG/50 ML (PMX) 50 ML IVPB (23:06)
[2017-08-26] MEDS: ALBUTEROL/IPRATROPIUM (NEB) 3 ML AMP HHN ×4 (01:05→19:28)
[2017-08-26] MEDS: LANSOPRAZOLE 30 MG CAP GTB (06:16)
[2017-08-26] MEDS: LEVOTHYROXINE 100 MCG TAB GTB (06:16)
[2017-08-26 07:22] LABS: ADD MAN DIFF? NO
[2017-08-26 07:37] LABS: WHITE BLOOD COUNT 9.9 10^3/ul (4.8-10.8)
[2017-08-26 07:37] LABS: BASOPHIL # 0.1 10^3/ul (0.0-0.1); BASOPHILS % 0.5 % (0.0-2.0); EOSINOPHILS # 0.1 10^3/ul (0.0-0.5); HEMOGLOBIN 9.9 g/dl (12.0-16.0); LYMPHOCYTES # 1.6 10^3/ul (0.8-2.9); LYMPHOCYTES % 15.6 % (15.0-51.0); MEAN CORPUSCULAR HGB CONC 30.9 g/dl (32.0-37.0); MEAN CORPUSCULAR VOLUME 90.4 fl (82.0-101.0); MEAN PLATELET VOLUME 10.7 fl (7.4-10.4); MONOCYTE # 0.8 10^3/ul (0.3-0.9); MONOCYTES % 7.8 % (0.0-11.0); NEUTROPHIL # 7.2 10^3/ul (1.6-7.5); NEUTROPHILS % 72.8 % (39.0-77.0); PLATELET COUNT 228 10^3/UL (140-415); RED BLOOD COUNT 3.54 10^6/ul (4.20-5.40); RED CELL DISTRIBUTION WIDTH 16.8 % (11.5-14.5)
[2017-08-26 07:56] LABS: ANION GAP 14 (8-16); BLOOD UREA NITROGEN 44 mg/dl (7-20); CALCIUM 10.9 mg/dl (8.4-10.2); CARBON DIOXIDE 26 mmol/L (21-31); CHLORIDE 100 mmol/L (97-110); CREATININE 0.92 mg/dl (0.44-1.00); GLUCOSE 105 mg/dl (70-220); POTASSIUM 3.9 mmol/L (3.5-5.1); SODIUM 136 mmol/L (135-144)
[2017-08-26] MEDS: ASCORBIC ACID 250 MG TAB GTB (09:47)
[2017-08-26] MEDS: LOSARTAN 25 MG TAB GTB (09:47)
[2017-08-26] MEDS: AMLODIPINE 10 MG TAB PO (09:47)
[2017-08-26] MEDS: MULTIVIT/CA CARB/B CMPLX/FA TAB GTB (09:47)
[2017-08-26] MEDS: BALSAM PERU/CASTOR OIL 60 GM TUBE TOP ×2 (09:48→21:40)
[2017-08-26] MEDS: NYSTATIN 30 GM POWDER BTL TOP ×2 (09:48→21:40)
[2017-08-26] MEDS: COLLAGENASE 5 GM (UD JAR) TOP (09:48)
[2017-08-26] MEDS: MEROPENEM 500MG/50 ML (PMX) 50 ML IVPB (09:50)
[2017-08-26] MEDS: TOBRAMYCIN/0.25NS 300 MG/5 ML INHAL NEB ×2 (12:00→19:29)
[2017-08-26] MEDS: TRIMETHOPRIM IVPB (13:09)
[2017-08-26] MEDS: DEXTROSE IVPB (13:09)
[2017-08-26] MEDS: SULFAMETHOXAZOLE IVPB (13:09)
[2017-08-26] MEDS: ACETAMINOPHEN 650MG/20.3ML CUP GTB (19:41)
[2017-08-26] MEDS: morphine LIQ (10 MG/5 ML) CUP GTB (21:40)
[2017-08-27] MEDS: ALBUTEROL/IPRATROPIUM (NEB) 3 ML AMP HHN ×4 (01:25→20:52)
[2017-08-27] MEDS: ACETAMINOPHEN 650MG/20.3ML CUP GTB ×2 (01:41→20:57)
[2017-08-27] MEDS: morphine LIQ (10 MG/5 ML) CUP GTB (02:59)
[2017-08-27] MEDS: LEVOTHYROXINE 100 MCG TAB GTB (06:25)
[2017-08-27] MEDS: LANSOPRAZOLE 30 MG CAP GTB (06:25)
[2017-08-27 08:12] LABS: ADD MAN DIFF? NO
[2017-08-27] MEDS: TOBRAMYCIN/0.25NS 300 MG/5 ML INHAL NEB ×3 (08:23→20:52)
[2017-08-27 08:42] LABS: ANION GAP 15 (8-16); BLOOD UREA NITROGEN 33 mg/dl (7-20); CALCIUM 10.5 mg/dl (8.4-10.2); CARBON DIOXIDE 27 mmol/L (21-31); CHLORIDE 99 mmol/L (97-110); CREATININE 0.67 mg/dl (0.44-1.00); GLUCOSE 90 mg/dl (70-220); POTASSIUM 4.1 mmol/L (3.5-5.1); SODIUM 137 mmol/L (135-144)
[2017-08-27 08:51] LABS: BASOPHIL # 0.1 10^3/ul (0.0-0.1); BASOPHILS % 0.4 % (0.0-2.0); EOSINOPHILS # 0.1 10^3/ul (0.0-0.5); EOSINOPHILS % 0.5 % (0.0-7.0); HEMATOCRIT 30.6 % (37.0-47.0); HEMOGLOBIN 9.4 g/dl (12.0-16.0); LYMPHOCYTES # 1.6 10^3/ul (0.8-2.9); LYMPHOCYTES % 11.7 % (15.0-51.0); MEAN CORPUSCULAR HEMOGLOBIN 27.7 pg (29.0-33.0); MEAN CORPUSCULAR HGB CONC 30.7 g/dl (32.0-37.0); MEAN CORPUSCULAR VOLUME 90.3 fl (82.0-101.0); MEAN PLATELET VOLUME 10.6 fl (7.4-10.4); MONOCYTES % 7.5 % (0.0-11.0); NEUTROPHIL # 10.5 10^3/ul (1.6-7.5); NEUTROPHILS % 78.5 % (39.0-77.0); NUCLEATED RED BLOOD CELLS% 0.1 /100WBC (0.0-0.0); PLATELET COUNT 230 10^3/UL (140-415); RED BLOOD COUNT 3.39 10^6/ul (4.20-5.40); RED CELL DISTRIBUTION WIDTH 16.8 % (11.5-14.5)
[2017-08-27 08:51] LABS: WHITE BLOOD COUNT 13.4 10^3/ul (4.8-10.8)
[2017-08-27] MEDS: LOSARTAN 25 MG TAB GTB (09:00)
[2017-08-27] MEDS: COLLAGENASE 5 GM (UD JAR) TOP (09:10)
[2017-08-27] MEDS: BALSAM PERU/CASTOR OIL 60 GM TUBE TOP ×2 (09:11→20:57)
[2017-08-27] MEDS: NYSTATIN 30 GM POWDER BTL TOP ×2 (09:11→20:57)
[2017-08-27] MEDS: AMLODIPINE 10 MG TAB PO (09:12)
[2017-08-27] MEDS: ASCORBIC ACID 250 MG TAB GTB (09:12)
[2017-08-27] MEDS: MULTIVIT/CA CARB/B CMPLX/FA TAB GTB (09:12)
[2017-08-27] MEDS: TRIMETHOPRIM IVPB (09:13)
[2017-08-27] MEDS: DEXTROSE IVPB (09:13)
[2017-08-27] MEDS: SULFAMETHOXAZOLE IVPB (09:13)
[2017-08-28] MEDS: ALBUTEROL/IPRATROPIUM (NEB) 3 ML AMP HHN ×4 (01:50→20:27)
[2017-08-28] MEDS: LEVOTHYROXINE 100 MCG TAB GTB (05:26)
[2017-08-28] MEDS: ACETAMINOPHEN 650MG/20.3ML CUP GTB (05:27)
[2017-08-28] MEDS: LANSOPRAZOLE 30 MG CAP GTB (05:28)
[2017-08-28 06:49] LABS: WHITE BLOOD COUNT 15.7 10^3/ul (4.8-10.8)
[2017-08-28 06:49] LABS: ADD MAN DIFF? NO; BASOPHIL # 0.1 10^3/ul (0.0-0.1); BASOPHILS % 0.3 % (0.0-2.0); EOSINOPHILS # 0.1 10^3/ul (0.0-0.5); EOSINOPHILS % 0.6 % (0.0-7.0); HEMATOCRIT 28.9 % (37.0-47.0); HEMOGLOBIN 8.8 g/dl (12.0-16.0); LYMPHOCYTES # 1.6 10^3/ul (0.8-2.9); LYMPHOCYTES % 9.9 % (15.0-51.0); MEAN CORPUSCULAR HEMOGLOBIN 27.3 pg (29.0-33.0); MEAN CORPUSCULAR HGB CONC 30.4 g/dl (32.0-37.0); MEAN CORPUSCULAR VOLUME 89.8 fl (82.0-101.0); MEAN PLATELET VOLUME 10.5 fl (7.4-10.4); MONOCYTE # 0.9 10^3/ul (0.3-0.9); MONOCYTES % 5.5 % (0.0-11.0); NEUTROPHIL # 12.9 10^3/ul (1.6-7.5); NEUTROPHILS % 82.4 % (39.0-77.0); PLATELET COUNT 239 10^3/UL (140-415); RED BLOOD COUNT 3.22 10^6/ul (4.20-5.40)
[2017-08-28 07:31] LABS: ANION GAP 17 (8-16); BLOOD UREA NITROGEN 47 mg/dl (7-20); CALCIUM 10.8 mg/dl (8.4-10.2); CARBON DIOXIDE 25 mmol/L (21-31); CHLORIDE 97 mmol/L (97-110); CREATININE 0.94 mg/dl (0.44-1.00); GLUCOSE 100 mg/dl (70-220); POTASSIUM 4.4 mmol/L (3.5-5.1); SODIUM 135 mmol/L (135-144)
[2017-08-28] MEDS: TOBRAMYCIN/0.25NS 300 MG/5 ML INHAL NEB ×3 (07:53→20:30)
[2017-08-28] MEDS: COLLAGENASE 5 GM (UD JAR) TOP (08:46)
[2017-08-28] MEDS: MULTIVIT/CA CARB/B CMPLX/FA TAB GTB (08:46)
[2017-08-28] MEDS: ASCORBIC ACID 250 MG TAB GTB (08:46)
[2017-08-28] MEDS: LOSARTAN 25 MG TAB GTB (08:46)
[2017-08-28] MEDS: NYSTATIN 30 GM POWDER BTL TOP ×2 (08:47→21:52)
[2017-08-28] MEDS: BALSAM PERU/CASTOR OIL 60 GM TUBE TOP ×2 (08:47→21:51)
[2017-08-28] MEDS: AMLODIPINE 10 MG TAB PO (08:47)
[2017-08-28] MEDS: SULFAMETHOXAZOLE IVPB (09:36)
[2017-08-28] MEDS: TRIMETHOPRIM IVPB (09:36)
[2017-08-28] MEDS: DEXTROSE IVPB (09:36)
[2017-08-29] MEDS: ALBUTEROL/IPRATROPIUM (NEB) 3 ML AMP HHN ×4 (01:26→20:06)
[2017-08-29] MEDS: LEVOTHYROXINE 100 MCG TAB GTB (06:17)
[2017-08-29 07:16] LABS: ADD MAN DIFF? NO
[2017-08-29 07:22] LABS: BASOPHIL # 0.1 10^3/ul (0.0-0.1); BASOPHILS % 0.3 % (0.0-2.0); EOSINOPHILS # 0.1 10^3/ul (0.0-0.5); EOSINOPHILS % 0.6 % (0.0-7.0); HEMATOCRIT 31.9 % (37.0-47.0); HEMOGLOBIN 10.1 g/dl (12.0-16.0); LYMPHOCYTES # 1.3 10^3/ul (0.8-2.9); LYMPHOCYTES % 8.1 % (15.0-51.0); MEAN CORPUSCULAR HEMOGLOBIN 28.1 pg (29.0-33.0); MEAN CORPUSCULAR HGB CONC 31.7 g/dl (32.0-37.0); MEAN CORPUSCULAR VOLUME 88.6 fl (82.0-101.0); MEAN PLATELET VOLUME 10.3 fl (7.4-10.4); MONOCYTE # 0.6 10^3/ul (0.3-0.9); MONOCYTES % 3.6 % (0.0-11.0); NEUTROPHIL # 13.8 10^3/ul (1.6-7.5); PLATELET COUNT 256 10^3/UL (140-415); RED CELL DISTRIBUTION WIDTH 16.7 % (11.5-14.5)
[2017-08-29 07:53] LABS: ANION GAP 21 (8-16); BLOOD UREA NITROGEN 57 mg/dl (7-20); CALCIUM 10.9 mg/dl (8.4-10.2); CARBON DIOXIDE 23 mmol/L (21-31); CHLORIDE 94 mmol/L (97-110); CREATININE 1.15 mg/dl (0.44-1.00); GLUCOSE 101 mg/dl (70-220); POTASSIUM 4.7 mmol/L (3.5-5.1); SODIUM 133 mmol/L (135-144)
[2017-08-29] MEDS: TOBRAMYCIN/0.25NS 300 MG/5 ML INHAL NEB ×2 (08:17→20:06)
[2017-08-29] MEDS: DEXTROSE IVPB (10:20)
[2017-08-29] MEDS: TRIMETHOPRIM IVPB (10:20)
[2017-08-29] MEDS: SULFAMETHOXAZOLE IVPB (10:20)
[2017-08-29] MEDS: COLLAGENASE 5 GM (UD JAR) TOP (10:21)
[2017-08-29] MEDS: LOSARTAN 25 MG TAB GTB (10:22)
[2017-08-29] MEDS: ASCORBIC ACID 250 MG TAB GTB (10:22)
[2017-08-29] MEDS: MULTIVIT/CA CARB/B CMPLX/FA TAB GTB (10:22)
[2017-08-29] MEDS: LANSOPRAZOLE 30 MG CAP GTB (10:22)
[2017-08-29] MEDS: NYSTATIN 30 GM POWDER BTL TOP ×2 (10:22→21:00)
[2017-08-29] MEDS: BALSAM PERU/CASTOR OIL 60 GM TUBE TOP ×2 (10:22→21:00)
[2017-08-29] MEDS: AMLODIPINE 10 MG TAB PO (10:30)
[2017-08-29] MEDS: PIPER-TAZO 2.25 GM (PMX) 50 ML IVPB ×2 (10:31→14:20)
[2017-08-29] MEDS ORDERED: hydrALAzine 20 MG INJ IV (20:30)
[2017-08-30 00:44] LABS: HEPATITIS B SURFACE ANTIGEN NEGATIVE (NEGATIVE)
[2017-08-30] MEDS: ALBUTEROL/IPRATROPIUM (NEB) 3 ML AMP HHN ×4 (01:07→20:13)
[2017-08-30] MEDS: HEPARIN 1000 UNITS/ML 10 ML INJ CATHETER (02:29)
[2017-08-30] MEDS: PIPER-TAZO 2.25 GM (PMX) 50 ML IVPB ×4 (03:10→22:37)
[2017-08-30] MEDS: LEVOTHYROXINE 100 MCG TAB GTB (07:02)
[2017-08-30 07:17] LABS: ADD MAN DIFF? NO
[2017-08-30 07:27] LABS: WHITE BLOOD COUNT 12.7 10^3/ul (4.8-10.8)
[2017-08-30 07:27] LABS: BASOPHILS % 0.3 % (0.0-2.0); EOSINOPHILS # 0.1 10^3/ul (0.0-0.5); EOSINOPHILS % 0.6 % (0.0-7.0); HEMATOCRIT 33.1 % (37.0-47.0); HEMOGLOBIN 10.4 g/dl (12.0-16.0); LYMPHOCYTES # 1.4 10^3/ul (0.8-2.9); LYMPHOCYTES % 11.3 % (15.0-51.0); MEAN CORPUSCULAR HEMOGLOBIN 27.6 pg (29.0-33.0); MEAN CORPUSCULAR HGB CONC 31.4 g/dl (32.0-37.0); MEAN CORPUSCULAR VOLUME 87.8 fl (82.0-101.0); MEAN PLATELET VOLUME 10.3 fl (7.4-10.4); MONOCYTE # 0.7 10^3/ul (0.3-0.9); MONOCYTES % 5.4 % (0.0-11.0); NEUTROPHIL # 10.3 10^3/ul (1.6-7.5); NEUTROPHILS % 80.9 % (39.0-77.0); PLATELET COUNT 258 10^3/UL (140-415); RED BLOOD COUNT 3.77 10^6/ul (4.20-5.40); RED CELL DISTRIBUTION WIDTH 17.1 % (11.5-14.5)
[2017-08-30] MEDS: TOBRAMYCIN/0.25NS 300 MG/5 ML INHAL NEB ×2 (08:00→20:13)
[2017-08-30 08:02] LABS: ANION GAP 17 (8-16); BLOOD UREA NITROGEN 31 mg/dl (7-20); CARBON DIOXIDE 29 mmol/L (21-31); CHLORIDE 94 mmol/L (97-110); CREATININE 0.68 mg/dl (0.44-1.00); GLUCOSE 96 mg/dl (70-220); POTASSIUM 4.3 mmol/L (3.5-5.1); SODIUM 136 mmol/L (135-144)
[2017-08-30] MEDS: LANSOPRAZOLE 30 MG CAP GTB (08:44)
[2017-08-30] MEDS: MULTIVIT/CA CARB/B CMPLX/FA TAB GTB (08:45)
[2017-08-30] MEDS: ASCORBIC ACID 250 MG TAB GTB (08:45)
[2017-08-30] MEDS: TRIMETHOPRIM IVPB (08:46)
[2017-08-30] MEDS: DEXTROSE IVPB (08:46)
[2017-08-30] MEDS: AMLODIPINE 10 MG TAB PO (08:46)
[2017-08-30] MEDS: NYSTATIN 30 GM POWDER BTL TOP ×2 (08:46→20:50)
[2017-08-30] MEDS: BALSAM PERU/CASTOR OIL 60 GM TUBE TOP ×2 (08:46→20:50)
[2017-08-30] MEDS: COLLAGENASE 5 GM (UD JAR) TOP (08:46)
[2017-08-30] MEDS: SULFAMETHOXAZOLE IVPB (08:46)
[2017-08-30] MEDS: LOSARTAN 25 MG TAB GTB (08:47)
[2017-08-31] MEDS: TOBRAMYCIN/0.25NS 300 MG/5 ML INHAL NEB ×2 (01:00→08:36)
[2017-08-31] MEDS: ALBUTEROL/IPRATROPIUM (NEB) 3 ML AMP HHN ×4 (02:41→19:25)
[2017-08-31] MEDS: PIPER-TAZO 2.25 GM (PMX) 50 ML IVPB ×3 (06:06→20:58)
[2017-08-31] MEDS: LEVOTHYROXINE 100 MCG TAB GTB (06:07)
[2017-08-31] MEDS: LANSOPRAZOLE 30 MG CAP GTB (07:25)
[2017-08-31 08:11] LABS: ADD MAN DIFF? NO
[2017-08-31 08:14] LABS: WHITE BLOOD COUNT 10.5 10^3/ul (4.8-10.8)
[2017-08-31 08:14] LABS: BASOPHIL # 0.1 10^3/ul (0.0-0.1); BASOPHILS % 0.7 % (0.0-2.0); EOSINOPHILS # 0.1 10^3/ul (0.0-0.5); EOSINOPHILS % 1.1 % (0.0-7.0); HEMATOCRIT 30.6 % (37.0-47.0); HEMOGLOBIN 9.3 g/dl (12.0-16.0); LYMPHOCYTES # 1.9 10^3/ul (0.8-2.9); LYMPHOCYTES % 17.9 % (15.0-51.0); MEAN CORPUSCULAR HEMOGLOBIN 27.4 pg (29.0-33.0); MEAN CORPUSCULAR HGB CONC 30.4 g/dl (32.0-37.0); MEAN CORPUSCULAR VOLUME 90.3 fl (82.0-101.0); MEAN PLATELET VOLUME 10.6 fl (7.4-10.4); MONOCYTE # 0.8 10^3/ul (0.3-0.9); MONOCYTES % 7.7 % (0.0-11.0); NEUTROPHIL # 7.4 10^3/ul (1.6-7.5); NEUTROPHILS % 71.2 % (39.0-77.0); NUCLEATED RED BLOOD CELLS% 0.2 /100WBC (0.0-0.0); PLATELET COUNT 212 10^3/UL (140-415); RED BLOOD COUNT 3.39 10^6/ul (4.20-5.40); RED CELL DISTRIBUTION WIDTH 17.2 % (11.5-14.5)
[2017-08-31 08:56] LABS: ANION GAP 21 (8-16); BLOOD UREA NITROGEN 49 mg/dl (7-20); CALCIUM 10.2 mg/dl (8.4-10.2); CARBON DIOXIDE 25 mmol/L (21-31); CHLORIDE 92 mmol/L (97-110); CREATININE 0.82 mg/dl (0.44-1.00); GLUCOSE 100 mg/dl (70-220); POTASSIUM 4.6 mmol/L (3.5-5.1); SODIUM 133 mmol/L (135-144)
[2017-08-31] MEDS: AMLODIPINE 10 MG TAB PO (09:00)
[2017-08-31] MEDS: ASCORBIC ACID 250 MG TAB GTB (09:00)
[2017-08-31] MEDS: LOSARTAN 25 MG TAB GTB (09:00)
[2017-08-31] MEDS: MULTIVIT/CA CARB/B CMPLX/FA TAB GTB (09:00)
[2017-08-31] MEDS: DEXTROSE IVPB (09:00)
[2017-08-31] MEDS: TRIMETHOPRIM IVPB (09:00)
[2017-08-31] MEDS: SULFAMETHOXAZOLE IVPB (09:00)
[2017-08-31] MEDS: BALSAM PERU/CASTOR OIL 60 GM TUBE TOP ×2 (09:00→20:58)
[2017-08-31] MEDS: NYSTATIN 30 GM POWDER BTL TOP ×2 (09:56→20:58)
[2017-08-31] MEDS: COLLAGENASE 5 GM (UD JAR) TOP (09:56)
[2017-08-31] MEDS: HEPARIN 1000 UNITS/ML 10 ML INJ CATHETER (16:20)
[2017-08-31] MEDS: ACETAMINOPHEN 650MG/20.3ML CUP GTB (16:55)
[2017-09-01] MEDS: ALBUTEROL/IPRATROPIUM (NEB) 3 ML AMP HHN ×4 (01:15→19:41)
[2017-09-01 06:41] LABS: ADD MAN DIFF? NO
[2017-09-01 06:47] LABS: BASOPHIL # 0.1 10^3/ul (0.0-0.1); BASOPHILS % 0.6 % (0.0-2.0); EOSINOPHILS # 0.1 10^3/ul (0.0-0.5); HEMATOCRIT 30.1 % (37.0-47.0); HEMOGLOBIN 9.5 g/dl (12.0-16.0); LYMPHOCYTES # 1.1 10^3/ul (0.8-2.9); LYMPHOCYTES % 12.9 % (15.0-51.0); MEAN CORPUSCULAR HEMOGLOBIN 28.3 pg (29.0-33.0); MEAN CORPUSCULAR HGB CONC 31.6 g/dl (32.0-37.0); MEAN CORPUSCULAR VOLUME 89.6 fl (82.0-101.0); MEAN PLATELET VOLUME 10.1 fl (7.4-10.4); MONOCYTE # 0.5 10^3/ul (0.3-0.9); MONOCYTES % 6.4 % (0.0-11.0); NEUTROPHIL # 6.4 10^3/ul (1.6-7.5); NEUTROPHILS % 77.3 % (39.0-77.0); PLATELET COUNT 241 10^3/UL (140-415); RED BLOOD COUNT 3.36 10^6/ul (4.20-5.40); RED CELL DISTRIBUTION WIDTH 17.5 % (11.5-14.5)
[2017-09-01 06:47] LABS: WHITE BLOOD COUNT 8.2 10^3/ul (4.8-10.8)
[2017-09-01] MEDS: LEVOTHYROXINE 100 MCG TAB GTB (06:51)
[2017-09-01] MEDS: LANSOPRAZOLE 30 MG CAP GTB (06:51)
[2017-09-01] MEDS: PIPER-TAZO 2.25 GM (PMX) 50 ML IVPB ×3 (06:51→21:39)
[2017-09-01 07:09] LABS: ANION GAP 18 (8-16); BLOOD UREA NITROGEN 34 mg/dl (7-20); CALCIUM 10.3 mg/dl (8.4-10.2); CARBON DIOXIDE 28 mmol/L (21-31); CHLORIDE 94 mmol/L (97-110); CREATININE 0.69 mg/dl (0.44-1.00); GLUCOSE 103 mg/dl (70-220); POTASSIUM 3.8 mmol/L (3.5-5.1); SODIUM 136 mmol/L (135-144)
[2017-09-01] MEDS: TOBRAMYCIN/0.25NS 300 MG/5 ML INHAL NEB ×2 (07:57→19:41)
[2017-09-01] MEDS: ASCORBIC ACID 250 MG TAB GTB (09:17)
[2017-09-01] MEDS: MULTIVIT/CA CARB/B CMPLX/FA TAB GTB (09:17)
[2017-09-01] MEDS: BALSAM PERU/CASTOR OIL 60 GM TUBE TOP ×2 (09:18→21:39)
[2017-09-01] MEDS: COLLAGENASE 5 GM (UD JAR) TOP (09:18)
[2017-09-01] MEDS: NYSTATIN 30 GM POWDER BTL TOP ×2 (09:18→21:39)
[2017-09-01] MEDS: DEXTROSE IVPB (09:24)
[2017-09-01] MEDS: LOSARTAN 25 MG TAB GTB (09:24)
[2017-09-01] MEDS: TRIMETHOPRIM IVPB (09:24)
[2017-09-01] MEDS: SULFAMETHOXAZOLE IVPB (09:24)
[2017-09-01] MEDS: ACETAMINOPHEN 650MG/20.3ML CUP GTB (16:03)
[2017-09-01] MEDS: EPOETIN 10000 UNITS/ML (NON ESRD/NON ONCOLOGY) SC (17:32)
[2017-09-02] MEDS: ALBUTEROL/IPRATROPIUM (NEB) 3 ML AMP HHN ×3 (01:22→20:27)
[2017-09-02] MEDS: LANSOPRAZOLE 30 MG CAP GTB (06:39)
[2017-09-02] MEDS: LEVOTHYROXINE 100 MCG TAB GTB (06:39)
[2017-09-02 07:11] LABS: ADD MAN DIFF? NO
[2017-09-02 07:29] LABS: BASOPHIL # 0.1 10^3/ul (0.0-0.1); BASOPHILS % 0.7 % (0.0-2.0); EOSINOPHILS # 0.1 10^3/ul (0.0-0.5); EOSINOPHILS % 1.7 % (0.0-7.0); HEMATOCRIT 29.4 % (37.0-47.0); HEMOGLOBIN 9.2 g/dl (12.0-16.0); LYMPHOCYTES # 1.5 10^3/ul (0.8-2.9); LYMPHOCYTES % 17.7 % (15.0-51.0); MEAN CORPUSCULAR HEMOGLOBIN 27.5 pg (29.0-33.0); MEAN CORPUSCULAR HGB CONC 31.3 g/dl (32.0-37.0); MEAN PLATELET VOLUME 10.2 fl (7.4-10.4); MONOCYTE # 0.5 10^3/ul (0.3-0.9); MONOCYTES % 6.4 % (0.0-11.0); NEUTROPHILS % 71.6 % (39.0-77.0); PLATELET COUNT 234 10^3/UL (140-415); RED BLOOD COUNT 3.34 10^6/ul (4.20-5.40); RED CELL DISTRIBUTION WIDTH 17.6 % (11.5-14.5)
[2017-09-02 07:29] LABS: WHITE BLOOD COUNT 8.3 10^3/ul (4.8-10.8)
[2017-09-02 07:35] LABS: ANION GAP 18 (8-16); BLOOD UREA NITROGEN 48 mg/dl (7-20); CALCIUM 10.6 mg/dl (8.4-10.2); CARBON DIOXIDE 25 mmol/L (21-31); CHLORIDE 95 mmol/L (97-110); CREATININE 0.88 mg/dl (0.44-1.00); GLUCOSE 73 mg/dl (70-220); POTASSIUM 4.4 mmol/L (3.5-5.1); SODIUM 134 mmol/L (135-144)
[2017-09-02] MEDS: TOBRAMYCIN/0.25NS 300 MG/5 ML INHAL NEB (08:21)
[2017-09-02] MEDS: TRIMETHOPRIM IVPB (10:07)
[2017-09-02] MEDS: DEXTROSE IVPB (10:07)
[2017-09-02] MEDS: SULFAMETHOXAZOLE IVPB (10:07)
[2017-09-02] MEDS: LOSARTAN 25 MG TAB GTB (10:07)
[2017-09-02] MEDS: COLLAGENASE 5 GM (UD JAR) TOP (10:07)
[2017-09-02] MEDS: MULTIVIT/CA CARB/B CMPLX/FA TAB GTB (10:08)
[2017-09-02] MEDS: ASCORBIC ACID 250 MG TAB GTB (10:08)
[2017-09-02] MEDS: NYSTATIN 30 GM POWDER BTL TOP ×2 (10:09→22:10)
[2017-09-02] MEDS: BALSAM PERU/CASTOR OIL 60 GM TUBE TOP ×2 (10:09→22:09)
[2017-09-02] MEDS: HEPARIN 1000 UNITS/ML 10 ML INJ CATHETER (15:33)
[2017-09-03] MEDS: ALBUTEROL/IPRATROPIUM (NEB) 3 ML AMP HHN ×4 (01:01→19:38)
[2017-09-03] MEDS: ACETAMINOPHEN 650MG/20.3ML CUP GTB ×2 (03:29→11:26)
[2017-09-03] MEDS: LEVOTHYROXINE 100 MCG TAB GTB (06:37)
[2017-09-03] MEDS: LANSOPRAZOLE 30 MG CAP GTB (06:38)
[2017-09-03] MEDS: DEXTROSE IVPB (09:53)
[2017-09-03] MEDS: TRIMETHOPRIM IVPB (09:53)
[2017-09-03] MEDS: MULTIVIT/CA CARB/B CMPLX/FA TAB GTB (09:53)
[2017-09-03] MEDS: SULFAMETHOXAZOLE IVPB (09:53)
[2017-09-03] MEDS: COLLAGENASE 5 GM (UD JAR) TOP (09:53)
[2017-09-03] MEDS: ASCORBIC ACID 250 MG TAB GTB (09:53)
[2017-09-03] MEDS: LOSARTAN 25 MG TAB GTB (09:53)
[2017-09-03] MEDS: NYSTATIN 30 GM POWDER BTL TOP ×2 (09:54→20:43)
[2017-09-03] MEDS: BALSAM PERU/CASTOR OIL 60 GM TUBE TOP ×2 (09:54→20:43)
[2017-09-03] MEDS: morphine LIQ (10 MG/5 ML) CUP GTB (20:43)
[2017-09-04] MEDS: ALBUTEROL/IPRATROPIUM (NEB) 3 ML AMP HHN ×4 (01:55→19:28)
[2017-09-04] MEDS: LEVOTHYROXINE 100 MCG TAB GTB (06:19)
[2017-09-04] MEDS: LANSOPRAZOLE 30 MG CAP GTB (06:19)
[2017-09-04 08:27] LABS: ADD MAN DIFF? NO
[2017-09-04 08:34] LABS: BASOPHILS % 0.4 % (0.0-2.0); EOSINOPHILS # 0.1 10^3/ul (0.0-0.5); EOSINOPHILS % 1.2 % (0.0-7.0); HEMATOCRIT 30.1 % (37.0-47.0); HEMOGLOBIN 9.3 g/dl (12.0-16.0); LYMPHOCYTES # 1.4 10^3/ul (0.8-2.9); LYMPHOCYTES % 13.3 % (15.0-51.0); MEAN CORPUSCULAR HEMOGLOBIN 27.9 pg (29.0-33.0); MEAN CORPUSCULAR HGB CONC 30.9 g/dl (32.0-37.0); MEAN CORPUSCULAR VOLUME 90.4 fl (82.0-101.0); MONOCYTE # 0.6 10^3/ul (0.3-0.9); MONOCYTES % 5.6 % (0.0-11.0); NEUTROPHILS % 77.1 % (39.0-77.0); PLATELET COUNT 249 10^3/UL (140-415); RED BLOOD COUNT 3.33 10^6/ul (4.20-5.40)
[2017-09-04 08:34] LABS: WHITE BLOOD COUNT 10.3 10^3/ul (4.8-10.8)
[2017-09-04 08:55] LABS: ANION GAP 20 (8-16); BLOOD UREA NITROGEN 52 mg/dl (7-20); CALCIUM 10.6 mg/dl (8.4-10.2); CARBON DIOXIDE 25 mmol/L (21-31); CHLORIDE 93 mmol/L (97-110); CREATININE 0.82 mg/dl (0.44-1.00); GLUCOSE 78 mg/dl (70-220); POTASSIUM 4.1 mmol/L (3.5-5.1); SODIUM 134 mmol/L (135-144)
[2017-09-04] MEDS: MULTIVIT/CA CARB/B CMPLX/FA TAB GTB (10:16)
[2017-09-04] MEDS: ASCORBIC ACID 250 MG TAB GTB (10:16)
[2017-09-04] MEDS: TRIMETHOPRIM IVPB (10:16)
[2017-09-04] MEDS: COLLAGENASE 5 GM (UD JAR) TOP (10:16)
[2017-09-04] MEDS: DEXTROSE IVPB (10:16)
[2017-09-04] MEDS: SULFAMETHOXAZOLE IVPB (10:16)
[2017-09-04] MEDS: LOSARTAN 25 MG TAB GTB ×2 (10:17)
[2017-09-04] MEDS: ACETAMINOPHEN 650MG/20.3ML CUP GTB (13:51)
[2017-09-04] MEDS: BALSAM PERU/CASTOR OIL 60 GM TUBE TOP ×2 (14:59→20:54)
[2017-09-04] MEDS: NYSTATIN 30 GM POWDER BTL TOP ×2 (14:59→20:53)
[2017-09-04] MEDS: morphine LIQ (10 MG/5 ML) CUP GTB (20:53)
[2017-09-05] MEDS: ALBUTEROL/IPRATROPIUM (NEB) 3 ML AMP HHN ×4 (01:06→19:34)
[2017-09-05] MEDS: LEVOTHYROXINE 100 MCG TAB GTB (07:00)
[2017-09-05] MEDS: SOD CHLORIDE 0.9% 500 ML IV (07:15)
[2017-09-05] MEDS: ASCORBIC ACID 250 MG TAB GTB (09:00)
[2017-09-05] MEDS: LOSARTAN 25 MG TAB GTB (09:00)
[2017-09-05] MEDS: MULTIVIT/CA CARB/B CMPLX/FA TAB GTB (09:00)
[2017-09-05] MEDS: LANSOPRAZOLE 30 MG CAP GTB (09:11)
[2017-09-05] MEDS: DEXTROSE 5%-0.9% NACL 1,000 ML IV (09:26)
[2017-09-05] MEDS: COLLAGENASE 5 GM (UD JAR) TOP (09:27)
[2017-09-05] MEDS: NYSTATIN 30 GM POWDER BTL TOP ×2 (09:27→21:24)
[2017-09-05] MEDS: BALSAM PERU/CASTOR OIL 60 GM TUBE TOP (09:27)
[2017-09-05] MEDS: SULFAMETHOXAZOLE IVPB (10:15)
[2017-09-05] MEDS: TRIMETHOPRIM IVPB (10:15)
[2017-09-05] MEDS: DEXTROSE IVPB (10:15)
[2017-09-05] MEDS: ALBUMIN HUMAN 25% 100 ML IV (14:21)
[2017-09-06] MEDS: DEXTROSE 5%-0.9% NACL 1,000 ML IV ×2 (01:10→17:50)
[2017-09-06] MEDS: ALBUTEROL/IPRATROPIUM (NEB) 3 ML AMP HHN ×4 (01:13→19:35)
[2017-09-06] MEDS: LEVOTHYROXINE 100 MCG TAB GTB (06:31)
[2017-09-06] MEDS: LANSOPRAZOLE 30 MG CAP GTB (06:33)
[2017-09-06] MEDS: LOSARTAN 25 MG TAB GTB (09:00)
[2017-09-06] MEDS: DEXTROSE IVPB (09:22)
[2017-09-06] MEDS: TRIMETHOPRIM IVPB (09:22)
[2017-09-06] MEDS: COLLAGENASE 5 GM (UD JAR) TOP (09:22)
[2017-09-06] MEDS: MULTIVIT/CA CARB/B CMPLX/FA TAB GTB (09:22)
[2017-09-06] MEDS: ASCORBIC ACID 250 MG TAB GTB (09:22)
[2017-09-06] MEDS: SULFAMETHOXAZOLE IVPB (09:22)
[2017-09-06] MEDS: NYSTATIN 30 GM POWDER BTL TOP ×2 (09:23→21:24)
[2017-09-06 11:27] LABS: ADD MAN DIFF? NO
[2017-09-06 11:29] LABS: BASOPHILS % 0.3 % (0.0-2.0); EOSINOPHILS # 0.1 10^3/ul (0.0-0.5); EOSINOPHILS % 0.5 % (0.0-7.0); HEMATOCRIT 24.9 % (37.0-47.0); HEMOGLOBIN 7.8 g/dl (12.0-16.0); LYMPHOCYTES # 1.1 10^3/ul (0.8-2.9); LYMPHOCYTES % 9.3 % (15.0-51.0); MEAN CORPUSCULAR HGB CONC 31.3 g/dl (32.0-37.0); MEAN CORPUSCULAR VOLUME 89.2 fl (82.0-101.0); MEAN PLATELET VOLUME 9.8 fl (7.4-10.4); MONOCYTE # 0.5 10^3/ul (0.3-0.9); MONOCYTES % 4.2 % (0.0-11.0); NEUTROPHIL # 10.4 10^3/ul (1.6-7.5); NEUTROPHILS % 84.8 % (39.0-77.0); PLATELET COUNT 174 10^3/UL (140-415); RED BLOOD COUNT 2.79 10^6/ul (4.20-5.40); RED CELL DISTRIBUTION WIDTH 18.5 % (11.5-14.5)
[2017-09-06 11:29] LABS: WHITE BLOOD COUNT 12.2 10^3/ul (4.8-10.8)
[2017-09-06 11:46] LABS: ANION GAP 24 (8-16); BLOOD UREA NITROGEN 71 mg/dl (7-20); CALCIUM 9.7 mg/dl (8.4-10.2); CARBON DIOXIDE 22 mmol/L (21-31); CHLORIDE 89 mmol/L (97-110); CREATININE 1.13 mg/dl (0.44-1.00); GLUCOSE 120 mg/dl (70-220); POTASSIUM 4.9 mmol/L (3.5-5.1); SODIUM 130 mmol/L (135-144)
[2017-09-06] MEDS: EPOETIN 10000 UNITS/ML (NON ESRD/NON ONCOLOGY) SC (16:20)
[2017-09-06 20:19] LABS: IMMEDIATE SPIN CROSSMATCH 1 1
[2017-09-06] MEDS: SOD CHLORIDE 0.9% 250 ML IV* (21:20)
[2017-09-07] MEDS: ALBUTEROL/IPRATROPIUM (NEB) 3 ML AMP HHN ×4 (01:07→19:27)
[2017-09-07] MEDS: LEVOTHYROXINE 100 MCG TAB GTB (06:44)
[2017-09-07] MEDS: LANSOPRAZOLE 30 MG CAP GTB (06:44)
[2017-09-07 08:17] LABS: ADD MAN DIFF? NO
[2017-09-07 08:19] LABS: WHITE BLOOD COUNT 14.3 10^3/ul (4.8-10.8)
[2017-09-07 08:19] LABS: BASOPHILS % 0.2 % (0.0-2.0); EOSINOPHILS % 0.2 % (0.0-7.0); HEMATOCRIT 28.3 % (37.0-47.0); LYMPHOCYTES # 0.9 10^3/ul (0.8-2.9); LYMPHOCYTES % 5.9 % (15.0-51.0); MEAN CORPUSCULAR HEMOGLOBIN 28.3 pg (29.0-33.0); MEAN CORPUSCULAR HGB CONC 31.8 g/dl (32.0-37.0); MEAN PLATELET VOLUME 10.1 fl (7.4-10.4); MONOCYTE # 0.4 10^3/ul (0.3-0.9); MONOCYTES % 2.8 % (0.0-11.0); NEUTROPHIL # 12.9 10^3/ul (1.6-7.5); NEUTROPHILS % 90.3 % (39.0-77.0); PLATELET COUNT 185 10^3/UL (140-415); RED BLOOD COUNT 3.18 10^6/ul (4.20-5.40); RED CELL DISTRIBUTION WIDTH 18.3 % (11.5-14.5)
[2017-09-07] MEDS: ALBUMIN HUMAN 25% 100 ML IV (09:13)
[2017-09-07 09:45] LABS: ANION GAP 24 (8-16); BLOOD UREA NITROGEN 80 mg/dl (7-20); CALCIUM 9.9 mg/dl (8.4-10.2)
[2017-09-07 09:49] LABS: CARBON DIOXIDE 17 mmol/L (21-31); CHLORIDE 94 mmol/L (97-110); CREATININE 1.15 mg/dl (0.44-1.00); GLUCOSE 105 mg/dl (70-220); POTASSIUM 5.1 mmol/L (3.5-5.1); SODIUM 130 mmol/L (135-144)
[2017-09-07] MEDS: DEXTROSE 5%-0.9% NACL 1,000 ML IV (10:30)
[2017-09-07] MEDS: HEPARIN 1000 UNITS/ML 10 ML INJ CATHETER (11:56)
[2017-09-07] MEDS: COLLAGENASE 5 GM (UD JAR) TOP (12:43)
[2017-09-07] MEDS: MULTIVIT/CA CARB/B CMPLX/FA TAB GTB (12:44)
[2017-09-07] MEDS: ACETAMINOPHEN 650MG/20.3ML CUP GTB ×2 (12:44→21:00)
[2017-09-07] MEDS: ASCORBIC ACID 250 MG TAB GTB (12:44)
[2017-09-07] MEDS: SULFAMETHOXAZOLE IVPB (12:45)
[2017-09-07] MEDS: TRIMETHOPRIM IVPB (12:45)
[2017-09-07] MEDS: NYSTATIN 30 GM POWDER BTL TOP ×2 (12:45→21:06)
[2017-09-07] MEDS: DEXTROSE IVPB (12:45)
[2017-09-08] MEDS: ALBUTEROL/IPRATROPIUM (NEB) 3 ML AMP HHN ×4 (01:33→19:43)
[2017-09-08] MEDS: DEXTROSE 5%-0.9% NACL 1,000 ML IV ×2 (03:10→19:50)
[2017-09-08] MEDS: ACETAMINOPHEN 650MG/20.3ML CUP GTB ×2 (05:33→22:09)
[2017-09-08] MEDS: LEVOTHYROXINE 100 MCG TAB GTB (06:02)
[2017-09-08] MEDS: COLLAGENASE 5 GM (UD JAR) TOP (08:29)
[2017-09-08] MEDS: MULTIVIT/CA CARB/B CMPLX/FA TAB GTB (08:29)
[2017-09-08] MEDS: ASCORBIC ACID 250 MG TAB GTB (08:29)
[2017-09-08] MEDS: LANSOPRAZOLE 30 MG CAP GTB (08:29)
[2017-09-08] MEDS: NYSTATIN 30 GM POWDER BTL TOP ×2 (08:30→22:09)
[2017-09-08] MEDS: DEXTROSE IVPB (09:35)
[2017-09-08] MEDS: TRIMETHOPRIM IVPB (09:35)
[2017-09-08] MEDS: SULFAMETHOXAZOLE IVPB (09:35)
[2017-09-08] MEDS: SOD CHLORIDE 0.9% 250 ML IV ×2 (11:35→17:24)
[2017-09-08] MEDS: EPOETIN 10000 UNITS/ML (NON ESRD/NON ONCOLOGY) SC (15:59)
[2017-09-08] MEDS ORDERED: DOPamine-D5W 1.6 MG/ML 250 ML (18:13)
[2017-09-08] MEDS: DOPamine-D5W 1.6 MG/ML 250 ML IV (18:34)
[2017-09-08] MEDS ORDERED: VANCOMYCIN IV PER PHARMACY XX (19:00)
[2017-09-08 19:25] LABS: LACTIC ACID 1.3 mmol/L (0.5-2.0)
[2017-09-08] MEDS: SOD CHLORIDE 0.9% 1,000 ML IV (20:45)
[2017-09-08] MEDS: TIGECYCLINE 100 MG in SOD CHLORIDE 0.9% 100 ML IVPB (21:28)
[2017-09-08] MEDS: COLISTIMETHATE 150 MG in SOD CHLORIDE 0.9% 100 ML IVPB (22:16)
[2017-09-09] MEDS: VANCOMYCIN 2 GM in SOD CHLORIDE 0.9% 500 ML IVPB (00:56)
[2017-09-09] MEDS: ALBUTEROL/IPRATROPIUM (NEB) 3 ML AMP HHN ×4 (01:12→22:46)
[2017-09-09 05:15] LABS: ADD MAN DIFF? NO
[2017-09-09 05:21] LABS: BASOPHILS % 0.4 % (0.0-2.0); EOSINOPHILS % 0.3 % (0.0-7.0); HEMATOCRIT 27.8 % (37.0-47.0); HEMOGLOBIN 8.8 g/dl (12.0-16.0); LYMPHOCYTES # 1.4 10^3/ul (0.8-2.9); LYMPHOCYTES % 12.5 % (15.0-51.0); MEAN CORPUSCULAR HEMOGLOBIN 28.2 pg (29.0-33.0); MEAN CORPUSCULAR HGB CONC 31.7 g/dl (32.0-37.0); MEAN CORPUSCULAR VOLUME 89.1 fl (82.0-101.0); MEAN PLATELET VOLUME 9.7 fl (7.4-10.4); MONOCYTE # 0.7 10^3/ul (0.3-0.9); MONOCYTES % 6.1 % (0.0-11.0); NEUTROPHIL # 8.7 10^3/ul (1.6-7.5); NEUTROPHILS % 78.5 % (39.0-77.0); PLATELET COUNT 174 10^3/UL (140-415); RED BLOOD COUNT 3.12 10^6/ul (4.20-5.40); RED CELL DISTRIBUTION WIDTH 18.7 % (11.5-14.5)
[2017-09-09 05:38] LABS: ANION GAP 19 (8-16); BLOOD UREA NITROGEN 63 mg/dl (7-20); CALCIUM 10.5 mg/dl (8.4-10.2); CARBON DIOXIDE 22 mmol/L (21-31); CHLORIDE 98 mmol/L (97-110); CREATININE 0.92 mg/dl (0.44-1.00); GLUCOSE 79 mg/dl (70-220); POTASSIUM 4.4 mmol/L (3.5-5.1); SODIUM 135 mmol/L (135-144)
[2017-09-09] MEDS: SOD CHLORIDE 0.9% 1,000 ML IV ×2 (05:59→15:33)
[2017-09-09] MEDS: LEVOTHYROXINE 100 MCG TAB GTB (06:52)
[2017-09-09] MEDS: LANSOPRAZOLE 30 MG CAP GTB (06:52)
[2017-09-09] MEDS ORDERED: NORepinephrine 8MG/250 ML (PMX 250 ML (09:25)
[2017-09-09] MEDS ORDERED: NORepinephrine 8MG/250 ML (PMX 250 ML IV (09:30)
[2017-09-09] MEDS: DEXTROSE IVPB (11:01)
[2017-09-09] MEDS: MULTIVIT/CA CARB/B CMPLX/FA TAB GTB (11:01)
[2017-09-09] MEDS: TRIMETHOPRIM IVPB (11:01)
[2017-09-09] MEDS: ASCORBIC ACID 250 MG TAB GTB (11:01)
[2017-09-09] MEDS: SULFAMETHOXAZOLE IVPB (11:01)
[2017-09-09] MEDS: COLLAGENASE 5 GM (UD JAR) TOP (11:02)
[2017-09-09] MEDS: NYSTATIN 30 GM POWDER BTL TOP ×2 (11:02→23:18)
[2017-09-09] MEDS: TIGECYCLINE 50 MG in SOD CHLORIDE 0.9% 100 ML IVPB ×2 (12:45→23:16)
[2017-09-09] MEDS: DEXTROSE 5%-0.9% NACL 1,000 ML IV (12:46)
[2017-09-09] MEDS: HEPARIN 1000 UNITS/ML 10 ML INJ CATHETER (22:24)
[2017-09-10] MEDS: COLISTIMETHATE 75 MG in SOD CHLORIDE 0.9% 100 ML IVPB ×2 (00:23→22:31)
[2017-09-10] MEDS: ALBUTEROL/IPRATROPIUM (NEB) 3 ML AMP HHN ×4 (02:17→19:43)
[2017-09-10] MEDS: SOD CHLORIDE 0.9% 1,000 ML IV (03:39)
[2017-09-10] MEDS: DEXTROSE 5%-0.9% NACL 1,000 ML IV ×2 (05:10→21:50)
[2017-09-10 05:40] LABS: ADD MAN DIFF? NO
[2017-09-10 05:42] LABS: BASOPHIL # 0.1 10^3/ul (0.0-0.1); BASOPHILS % 0.9 % (0.0-2.0); EOSINOPHILS # 0.3 10^3/ul (0.0-0.5); EOSINOPHILS % 2.2 % (0.0-7.0); HEMATOCRIT 31.6 % (37.0-47.0); LYMPHOCYTES # 1.2 10^3/ul (0.8-2.9); LYMPHOCYTES % 9.8 % (15.0-51.0); MEAN CORPUSCULAR HEMOGLOBIN 28.4 pg (29.0-33.0); MEAN CORPUSCULAR HGB CONC 31.6 g/dl (32.0-37.0); MEAN CORPUSCULAR VOLUME 89.8 fl (82.0-101.0); MEAN PLATELET VOLUME 9.5 fl (7.4-10.4); MONOCYTE # 0.9 10^3/ul (0.3-0.9); MONOCYTES % 7.6 % (0.0-11.0); NEUTROPHIL # 9.3 10^3/ul (1.6-7.5); NEUTROPHILS % 77.7 % (39.0-77.0); NUCLEATED RED BLOOD CELLS% 0.2 /100WBC (0.0-0.0); PLATELET COUNT 243 10^3/UL (140-415); RED BLOOD COUNT 3.52 10^6/ul (4.20-5.40)
[2017-09-10 05:42] LABS: WHITE BLOOD COUNT 11.9 10^3/ul (4.8-10.8)
[2017-09-10 06:09] LABS: ANION GAP 16 (8-16); BLOOD UREA NITROGEN 48 mg/dl (7-20); CALCIUM 9.8 mg/dl (8.4-10.2); CARBON DIOXIDE 24 mmol/L (21-31); CHLORIDE 100 mmol/L (97-110); CREATININE 0.67 mg/dl (0.44-1.00); GLUCOSE 88 mg/dl (70-220); MAGNESIUM 2.4 mg/dl (1.7-2.5); PHOSPHORUS 3.8 mg/dl (2.5-4.9); POTASSIUM 3.7 mmol/L (3.5-5.1); SODIUM 136 mmol/L (135-144)
[2017-09-10 06:29] LABS: LACTIC ACID 1.1 mmol/L (0.5-2.0)
[2017-09-10] MEDS: LANSOPRAZOLE 30 MG CAP GTB (06:38)
[2017-09-10] MEDS: LEVOTHYROXINE 100 MCG TAB GTB (06:38)
[2017-09-10] MEDS: MULTIVIT/CA CARB/B CMPLX/FA TAB GTB (08:51)
[2017-09-10] MEDS: ASCORBIC ACID 250 MG TAB GTB (08:51)
[2017-09-10] MEDS: COLLAGENASE 5 GM (UD JAR) TOP (08:51)
[2017-09-10] MEDS: TIGECYCLINE 50 MG in SOD CHLORIDE 0.9% 100 ML IVPB ×2 (09:16→21:01)
[2017-09-10] MEDS: NYSTATIN 30 GM POWDER BTL TOP ×2 (09:16→20:56)
[2017-09-10] MEDS: DEXTROSE IVPB (09:53)
[2017-09-10] MEDS: TRIMETHOPRIM IVPB (09:53)
[2017-09-10] MEDS: SULFAMETHOXAZOLE IVPB (09:53)
[2017-09-10 11:49] LABS: AADO2 Arterial 217.2 mmHg (7.0-24.0); Allen Test ACCEPTAB; Arterial Base Excess -2.4 mmol/L (-3.0-3); Arterial Blood Gas Oxygen Sat 89.4 mmHG (95.0-100.0); Arterial COHb 0.6 % (0.0-3.0); Arterial Fraction of Oxyhgb 88.5 % (93.0-99.0); Arterial HCO3 22.5 mmol/L (22.0-26.0); Arterial MetHb 0.4 % (0.0-1.5); Arterial Total Hemglobin 11.9 g/dl (12.0-18.0); Arterial pCO2 39.6 mmhg (35-45); MODE VENT - AC; Site Right Radial
[2017-09-10] MEDS: ACETAMINOPHEN 650MG/20.3ML CUP GTB (20:56)
[2017-09-11] MEDS: ALBUTEROL/IPRATROPIUM (NEB) 3 ML AMP HHN ×4 (01:30→19:40)
[2017-09-11 04:56] LABS: AADO2 Arterial 247.4 mmHg (7.0-24.0); Allen Test ACCEPTAB; Arterial Base Excess -3.8 mmol/L (-3.0-3); Arterial Blood Gas Oxygen Sat 91.4 mmHG (95.0-100.0); Arterial COHb 0.2 % (0.0-3.0); Arterial Fraction of Oxyhgb 90.7 % (93.0-99.0); Arterial HCO3 21.5 mmol/L (22.0-26.0); Arterial MetHb 0.6 % (0.0-1.5); Arterial Total Hemglobin 10.1 g/dl (12.0-18.0); Arterial pCO2 40.3 mmhg (35-45); MODE VENT - AC; Site Right Radial
[2017-09-11] MEDS: COLLAGENASE 5 GM (UD JAR) TOP ×2 (05:23→08:15)
[2017-09-11 05:27] LABS: ADD MAN DIFF? NO
[2017-09-11 05:32] LABS: BASOPHIL # 0.1 10^3/ul (0.0-0.1); BASOPHILS % 0.6 % (0.0-2.0); EOSINOPHILS # 0.1 10^3/ul (0.0-0.5); EOSINOPHILS % 1.2 % (0.0-7.0); HEMATOCRIT 26.8 % (37.0-47.0); HEMOGLOBIN 8.4 g/dl (12.0-16.0); LYMPHOCYTES # 2.2 10^3/ul (0.8-2.9); LYMPHOCYTES % 19.7 % (15.0-51.0); MEAN CORPUSCULAR HEMOGLOBIN 28.1 pg (29.0-33.0); MEAN CORPUSCULAR HGB CONC 31.3 g/dl (32.0-37.0); MEAN CORPUSCULAR VOLUME 89.6 fl (82.0-101.0); MEAN PLATELET VOLUME 9.4 fl (7.4-10.4); MONOCYTE # 1.1 10^3/ul (0.3-0.9); MONOCYTES % 9.9 % (0.0-11.0); NEUTROPHIL # 7.6 10^3/ul (1.6-7.5); NEUTROPHILS % 66.8 % (39.0-77.0); NUCLEATED RED BLOOD CELLS% 0.2 /100WBC (0.0-0.0); PLATELET COUNT 236 10^3/UL (140-415); RED BLOOD COUNT 2.99 10^6/ul (4.20-5.40); RED CELL DISTRIBUTION WIDTH 19.1 % (11.5-14.5)
[2017-09-11 05:32] LABS: WHITE BLOOD COUNT 11.4 10^3/ul (4.8-10.8)
[2017-09-11 06:02] LABS: ALANINE AMINOTRANSFERASE 30 IU/L (13-69); ALBUMIN 2.8 g/dl (3.3-4.9); ALKALINE PHOSPHATASE 240 IU/L (42-121); ANION GAP 17 (8-16); ASPARTATE AMINO TRANSFERASE 21 IU/L (15-46); BLOOD UREA NITROGEN 69 mg/dl (7-20); CALCIUM 10.4 mg/dl (8.4-10.2); CARBON DIOXIDE 21 mmol/L (21-31); CHLORIDE 98 mmol/L (97-110); CREATININE 0.85 mg/dl (0.44-1.00); GLUCOSE 86 mg/dl (70-220); POTASSIUM 4.3 mmol/L (3.5-5.1); SODIUM 132 mmol/L (135-144); TOTAL PROTEIN 5.6 g/dl (6.1-8.1)
[2017-09-11 06:09] LABS: LACTIC ACID 1.2 mmol/L (0.5-2.0)
[2017-09-11] MEDS: LEVOTHYROXINE 100 MCG TAB GTB (06:33)
[2017-09-11] MEDS: LANSOPRAZOLE 30 MG CAP GTB (06:33)
[2017-09-11] MEDS: ASCORBIC ACID 250 MG TAB GTB (08:15)
[2017-09-11] MEDS: MULTIVIT/CA CARB/B CMPLX/FA TAB GTB (08:15)
[2017-09-11] MEDS: TIGECYCLINE 50 MG in SOD CHLORIDE 0.9% 100 ML IVPB ×2 (08:15→21:28)
[2017-09-11] MEDS: NYSTATIN 30 GM POWDER BTL TOP ×2 (08:15→21:28)
[2017-09-11] MEDS: TRIMETHOPRIM IVPB (09:27)
[2017-09-11] MEDS: DEXTROSE IVPB (09:27)
[2017-09-11] MEDS: SULFAMETHOXAZOLE IVPB (09:27)
[2017-09-11] MEDS: ACETAMINOPHEN 650MG/20.3ML CUP GTB (13:40)
[2017-09-11] MEDS: DEXTROSE 5%-0.9% NACL 1,000 ML IV (14:30)
[2017-09-11] MEDS: COLISTIMETHATE 75 MG in SOD CHLORIDE 0.9% 100 ML IVPB (21:27)
[2017-09-12] MEDS: ALBUTEROL/IPRATROPIUM (NEB) 3 ML AMP HHN ×4 (01:30→19:47)
[2017-09-12] MEDS: BALSAM PERU/CASTOR OIL 60 GM TUBE TOP ×3 (01:50→21:09)
[2017-09-12] MEDS: LANSOPRAZOLE 30 MG CAP GTB (07:03)
[2017-09-12] MEDS: LEVOTHYROXINE 100 MCG TAB GTB (07:03)
[2017-09-12] MEDS: DEXTROSE 5%-0.9% NACL 1,000 ML IV ×2 (07:10→23:50)
[2017-09-12] MEDS: HEPARIN 1000 UNITS/ML 10 ML INJ CATHETER (08:52)
[2017-09-12] MEDS: ASCORBIC ACID 250 MG TAB GTB (09:19)
[2017-09-12] MEDS: MULTIVIT/CA CARB/B CMPLX/FA TAB GTB (09:19)
[2017-09-12] MEDS: TIGECYCLINE 50 MG in SOD CHLORIDE 0.9% 100 ML IVPB ×2 (09:21→21:08)
[2017-09-12] MEDS: COLLAGENASE 5 GM (UD JAR) TOP (09:22)
[2017-09-12] MEDS: NYSTATIN 30 GM POWDER BTL TOP ×2 (09:22→21:09)
[2017-09-12] MEDS: VANCOMYCIN 1 GM 250 ML IVPB (13:51)
[2017-09-12] MEDS: ACETAMINOPHEN 650MG/20.3ML CUP GTB (21:10)
[2017-09-12] MEDS: COLISTIMETHATE 75 MG in SOD CHLORIDE 0.9% 100 ML IVPB (21:51)
[2017-09-13] MEDS: ALBUTEROL/IPRATROPIUM (NEB) 3 ML AMP HHN ×4 (01:37→19:16)
[2017-09-13 05:04] LABS: ADD MAN DIFF? NO; BASOPHIL # 0.1 10^3/ul (0.0-0.1); BASOPHILS % 0.7 % (0.0-2.0); EOSINOPHILS # 0.3 10^3/ul (0.0-0.5); EOSINOPHILS % 2.9 % (0.0-7.0); HEMATOCRIT 26.4 % (37.0-47.0); HEMOGLOBIN 8.2 g/dl (12.0-16.0); LYMPHOCYTES # 1.2 10^3/ul (0.8-2.9); LYMPHOCYTES % 12.8 % (15.0-51.0); MEAN CORPUSCULAR HEMOGLOBIN 28.2 pg (29.0-33.0); MEAN CORPUSCULAR HGB CONC 31.1 g/dl (32.0-37.0); MEAN CORPUSCULAR VOLUME 90.7 fl (82.0-101.0); MEAN PLATELET VOLUME 9.6 fl (7.4-10.4); MONOCYTE # 0.9 10^3/ul (0.3-0.9); MONOCYTES % 9.6 % (0.0-11.0); NEUTROPHIL # 6.8 10^3/ul (1.6-7.5); NEUTROPHILS % 72.2 % (39.0-77.0); PLATELET COUNT 208 10^3/UL (140-415); RED BLOOD COUNT 2.91 10^6/ul (4.20-5.40); RED CELL DISTRIBUTION WIDTH 19.9 % (11.5-14.5)
[2017-09-13 05:04] LABS: WHITE BLOOD COUNT 9.5 10^3/ul (4.8-10.8)
[2017-09-13 05:31] LABS: ANION GAP 14 (8-16); BLOOD UREA NITROGEN 63 mg/dl (7-20); CALCIUM 10.5 mg/dl (8.4-10.2); CARBON DIOXIDE 25 mmol/L (21-31); CHLORIDE 101 mmol/L (97-110); GLUCOSE 88 mg/dl (70-220); POTASSIUM 3.8 mmol/L (3.5-5.1); SODIUM 136 mmol/L (135-144)
[2017-09-13] MEDS: LEVOTHYROXINE 100 MCG TAB GTB (06:50)
[2017-09-13] MEDS: LANSOPRAZOLE 30 MG CAP GTB (06:50)
[2017-09-13] MEDS: COLLAGENASE 5 GM (UD JAR) TOP (08:44)
[2017-09-13] MEDS: MULTIVIT/CA CARB/B CMPLX/FA TAB GTB (08:44)
[2017-09-13] MEDS: ASCORBIC ACID 250 MG TAB GTB (08:44)
[2017-09-13] MEDS: TIGECYCLINE 50 MG in SOD CHLORIDE 0.9% 100 ML IVPB ×2 (08:45→21:09)
[2017-09-13] MEDS: NYSTATIN 30 GM POWDER BTL TOP ×2 (08:46→21:10)
[2017-09-13] MEDS: BALSAM PERU/CASTOR OIL 60 GM TUBE TOP ×2 (08:46→21:10)
[2017-09-13] MEDS: DEXTROSE 5%-0.9% NACL 1,000 ML IV (16:30)
[2017-09-13] MEDS: EPOETIN 10000 UNITS/ML (NON ESRD/NON ONCOLOGY) SC (19:58)
[2017-09-13] MEDS: COLISTIMETHATE 75 MG in SOD CHLORIDE 0.9% 100 ML IVPB (22:32)
[2017-09-14] MEDS: ALBUTEROL/IPRATROPIUM (NEB) 3 ML AMP HHN ×4 (01:52→19:55)
[2017-09-14 05:30] LABS: ADD MAN DIFF? NO
[2017-09-14 05:39] LABS: BASOPHIL # 0.1 10^3/ul (0.0-0.1); BASOPHILS % 0.6 % (0.0-2.0); EOSINOPHILS # 0.3 10^3/ul (0.0-0.5); EOSINOPHILS % 2.7 % (0.0-7.0); HEMATOCRIT 25.4 % (37.0-47.0); HEMOGLOBIN 7.8 g/dl (12.0-16.0); LYMPHOCYTES # 1.7 10^3/ul (0.8-2.9); LYMPHOCYTES % 14.7 % (15.0-51.0); MEAN CORPUSCULAR HEMOGLOBIN 28.2 pg (29.0-33.0); MEAN CORPUSCULAR HGB CONC 30.7 g/dl (32.0-37.0); MEAN CORPUSCULAR VOLUME 91.7 fl (82.0-101.0); MEAN PLATELET VOLUME 9.6 fl (7.4-10.4); MONOCYTE # 0.9 10^3/ul (0.3-0.9); MONOCYTES % 7.9 % (0.0-11.0); NEUTROPHIL # 8.2 10^3/ul (1.6-7.5); NEUTROPHILS % 72.8 % (39.0-77.0); PLATELET COUNT 218 10^3/UL (140-415); RED BLOOD COUNT 2.77 10^6/ul (4.20-5.40); RED CELL DISTRIBUTION WIDTH 19.7 % (11.5-14.5)
[2017-09-14 05:39] LABS: WHITE BLOOD COUNT 11.3 10^3/ul (4.8-10.8)
[2017-09-14 06:05] LABS: ANION GAP 19 (8-16); BLOOD UREA NITROGEN 79 mg/dl (7-20); CALCIUM 11.4 mg/dl (8.4-10.2); CARBON DIOXIDE 22 mmol/L (21-31); CHLORIDE 98 mmol/L (97-110); GLUCOSE 112 mg/dl (70-220); POTASSIUM 4.3 mmol/L (3.5-5.1); SODIUM 135 mmol/L (135-144)
[2017-09-14] MEDS: LANSOPRAZOLE 30 MG CAP GTB (08:13)
[2017-09-14] MEDS: NYSTATIN 30 GM POWDER BTL TOP ×2 (08:13→20:50)
[2017-09-14] MEDS: LEVOTHYROXINE 100 MCG TAB GTB (08:13)
[2017-09-14] MEDS: MULTIVIT/CA CARB/B CMPLX/FA TAB GTB (08:13)
[2017-09-14] MEDS: COLLAGENASE 5 GM (UD JAR) TOP (08:13)
[2017-09-14] MEDS: BALSAM PERU/CASTOR OIL 60 GM TUBE TOP ×2 (08:13→20:50)
[2017-09-14] MEDS: ASCORBIC ACID 250 MG TAB GTB (08:13)
[2017-09-14] MEDS: DEXTROSE 5%-0.9% NACL 1,000 ML IV (08:14)
[2017-09-14] MEDS: TIGECYCLINE 50 MG in SOD CHLORIDE 0.9% 100 ML IVPB ×3 (08:51→20:46)
[2017-09-14] MEDS: HEPARIN 1000 UNITS/ML 10 ML INJ CATHETER (12:40)
[2017-09-14 13:25] LABS: PROCALCITONIN 2.52 ng/mL (<0.10)
[2017-09-14] MEDS: ACETAMINOPHEN 650MG/20.3ML CUP GTB (13:54)
[2017-09-14] MEDS: COLISTIMETHATE 75 MG in SOD CHLORIDE 0.9% 100 ML IVPB (22:06)
[2017-09-15] MEDS: DEXTROSE 5%-0.9% NACL 1,000 ML IV ×2 (01:50→18:15)
[2017-09-15] MEDS: ALBUTEROL/IPRATROPIUM (NEB) 3 ML AMP HHN ×4 (01:59→19:45)
[2017-09-15 05:24] LABS: ADD MAN DIFF? NO
[2017-09-15 05:36] LABS: BASOPHIL # 0.1 10^3/ul (0.0-0.1); BASOPHILS % 0.6 % (0.0-2.0); EOSINOPHILS # 0.2 10^3/ul (0.0-0.5); EOSINOPHILS % 2.8 % (0.0-7.0); HEMATOCRIT 25.4 % (37.0-47.0); LYMPHOCYTES # 1.1 10^3/ul (0.8-2.9); LYMPHOCYTES % 13.3 % (15.0-51.0); MEAN CORPUSCULAR HGB CONC 31.5 g/dl (32.0-37.0); MEAN PLATELET VOLUME 9.4 fl (7.4-10.4); MONOCYTE # 0.8 10^3/ul (0.3-0.9); MONOCYTES % 9.1 % (0.0-11.0); NEUTROPHILS % 72.4 % (39.0-77.0); PLATELET COUNT 214 10^3/UL (140-415); RED BLOOD COUNT 2.76 10^6/ul (4.20-5.40); RED CELL DISTRIBUTION WIDTH 20.1 % (11.5-14.5)
[2017-09-15 05:36] LABS: WHITE BLOOD COUNT 8.3 10^3/ul (4.8-10.8)
[2017-09-15 05:54] LABS: VANCOMYCIN,RANDOM 15.2 ug/ml
[2017-09-15 06:06] LABS: ANION GAP 11 (8-16); BLOOD UREA NITROGEN 57 mg/dl (7-20); CARBON DIOXIDE 26 mmol/L (21-31); CHLORIDE 101 mmol/L (97-110); CREATININE 0.64 mg/dl (0.44-1.00); GLUCOSE 99 mg/dl (70-220); POTASSIUM 3.7 mmol/L (3.5-5.1); SODIUM 134 mmol/L (135-144)
[2017-09-15] MEDS: LANSOPRAZOLE 30 MG CAP GTB (06:51)
[2017-09-15] MEDS: LEVOTHYROXINE 100 MCG TAB GTB (06:51)
[2017-09-15] MEDS: BALSAM PERU/CASTOR OIL 60 GM TUBE TOP ×2 (08:47→21:46)
[2017-09-15] MEDS: ASCORBIC ACID 250 MG TAB GTB (08:47)
[2017-09-15] MEDS: NYSTATIN 30 GM POWDER BTL TOP ×2 (08:47→21:46)
[2017-09-15] MEDS: COLLAGENASE 5 GM (UD JAR) TOP (08:47)
[2017-09-15] MEDS: TIGECYCLINE 50 MG in SOD CHLORIDE 0.9% 100 ML IVPB ×2 (08:47→21:48)
[2017-09-15] MEDS: MULTIVIT/CA CARB/B CMPLX/FA TAB GTB (08:47)
[2017-09-15] MEDS ORDERED: VANCOMYCIN 1 GM 250 ML IVPB (14:00)
[2017-09-15] MEDS: VANCOMYCIN 1 GM 250 ML IVPB (15:28)
[2017-09-15] MEDS: EPOETIN 10000 UNITS/ML (NON ESRD/NON ONCOLOGY) SC (18:11)
[2017-09-15] MEDS: COLISTIMETHATE 75 MG in SOD CHLORIDE 0.9% 100 ML IVPB (21:51)
[2017-09-16] MEDS: ALBUTEROL/IPRATROPIUM (NEB) 3 ML AMP HHN ×4 (02:39→19:34)
[2017-09-16 05:38] LABS: ADD MAN DIFF? NO; BASOPHIL # 0.1 10^3/ul (0.0-0.1); BASOPHILS % 0.6 % (0.0-2.0); EOSINOPHILS # 0.2 10^3/ul (0.0-0.5); EOSINOPHILS % 2.6 % (0.0-7.0); HEMOGLOBIN 7.6 g/dl (12.0-16.0); LYMPHOCYTES # 1.3 10^3/ul (0.8-2.9); LYMPHOCYTES % 15.6 % (15.0-51.0); MEAN CORPUSCULAR HEMOGLOBIN 28.3 pg (29.0-33.0); MEAN CORPUSCULAR HGB CONC 30.4 g/dl (32.0-37.0); MEAN CORPUSCULAR VOLUME 92.9 fl (82.0-101.0); MEAN PLATELET VOLUME 9.6 fl (7.4-10.4); MONOCYTE # 0.7 10^3/ul (0.3-0.9); MONOCYTES % 8.8 % (0.0-11.0); NEUTROPHIL # 5.8 10^3/ul (1.6-7.5); NEUTROPHILS % 70.7 % (39.0-77.0); PLATELET COUNT 193 10^3/UL (140-415); RED BLOOD COUNT 2.69 10^6/ul (4.20-5.40); RED CELL DISTRIBUTION WIDTH 20.2 % (11.5-14.5)
[2017-09-16 05:38] LABS: WHITE BLOOD COUNT 8.2 10^3/ul (4.8-10.8)
[2017-09-16 06:23] LABS: ALANINE AMINOTRANSFERASE 28 IU/L (13-69); ALBUMIN 2.1 g/dl (3.3-4.9); ALBUMIN/GLOBULIN RATIO 0.84; ALKALINE PHOSPHATASE 248 IU/L (42-121); ANION GAP 17 (8-16); ASPARTATE AMINO TRANSFERASE 23 IU/L (15-46); BLOOD UREA NITROGEN 71 mg/dl (7-20); CALCIUM 11.7 mg/dl (8.4-10.2); CARBON DIOXIDE 24 mmol/L (21-31); CHLORIDE 100 mmol/L (97-110); CREATININE 0.79 mg/dl (0.44-1.00); GLUCOSE 87 mg/dl (70-220); POTASSIUM 4.2 mmol/L (3.5-5.1); SODIUM 137 mmol/L (135-144); TOTAL PROTEIN 4.6 g/dl (6.1-8.1)
[2017-09-16] MEDS: LANSOPRAZOLE 30 MG CAP GTB (07:56)
[2017-09-16] MEDS: LEVOTHYROXINE 100 MCG TAB GTB (07:56)
[2017-09-16] MEDS: NYSTATIN 30 GM POWDER BTL TOP ×2 (09:00→20:18)
[2017-09-16] MEDS: TIGECYCLINE 50 MG in SOD CHLORIDE 0.9% 100 ML IVPB ×2 (09:00→20:21)
[2017-09-16] MEDS: MULTIVIT/CA CARB/B CMPLX/FA TAB GTB (09:00)
[2017-09-16] MEDS: COLLAGENASE 5 GM (UD JAR) TOP (09:00)
[2017-09-16] MEDS: BALSAM PERU/CASTOR OIL 60 GM TUBE TOP ×2 (09:00→20:18)
[2017-09-16] MEDS: ASCORBIC ACID 250 MG TAB GTB (09:00)
[2017-09-16] MEDS: DEXTROSE 5%-0.9% NACL 1,000 ML IV (09:12)
[2017-09-16] MEDS: ALBUMIN HUMAN 25% 100 ML IV (14:02)
[2017-09-16] MEDS: HEPARIN 1000 UNITS/ML 10 ML INJ CATHETER (16:46)
[2017-09-16] MEDS: ACETAMINOPHEN 650MG/20.3ML CUP GTB (16:50)
[2017-09-16] MEDS: COLISTIMETHATE 75 MG in SOD CHLORIDE 0.9% 100 ML IVPB (21:24)
[2017-09-16] MEDS: morphine LIQ (10 MG/5 ML) CUP GTB (23:43)
[2017-09-17] MEDS: ALBUTEROL/IPRATROPIUM (NEB) 3 ML AMP HHN ×2 (02:31→07:48)
[2017-09-17] MEDS: DEXTROSE 5%-0.9% NACL 1,000 ML IV ×2 (04:13→21:25)
[2017-09-17 04:51] LABS: ADD MAN DIFF? NO
[2017-09-17 04:52] LABS: BASOPHIL # 0.1 10^3/ul (0.0-0.1); BASOPHILS % 0.7 % (0.0-2.0); EOSINOPHILS # 0.2 10^3/ul (0.0-0.5); EOSINOPHILS % 2.4 % (0.0-7.0); HEMATOCRIT 25.4 % (37.0-47.0); HEMOGLOBIN 7.5 g/dl (12.0-16.0); LYMPHOCYTES % 13.4 % (15.0-51.0); MEAN CORPUSCULAR HEMOGLOBIN 27.5 pg (29.0-33.0); MEAN CORPUSCULAR HGB CONC 29.5 g/dl (32.0-37.0); MEAN PLATELET VOLUME 9.5 fl (7.4-10.4); MONOCYTE # 0.7 10^3/ul (0.3-0.9); MONOCYTES % 9.5 % (0.0-11.0); NEUTROPHIL # 5.1 10^3/ul (1.6-7.5); NEUTROPHILS % 72.4 % (39.0-77.0); PLATELET COUNT 191 10^3/UL (140-415); RED BLOOD COUNT 2.73 10^6/ul (4.20-5.40); RED CELL DISTRIBUTION WIDTH 20.7 % (11.5-14.5)
[2017-09-17 04:52] LABS: WHITE BLOOD COUNT 7.1 10^3/ul (4.8-10.8)
[2017-09-17 05:16] LABS: ANION GAP 11 (8-16); BLOOD UREA NITROGEN 50 mg/dl (7-20); CALCIUM 11.1 mg/dl (8.4-10.2); CARBON DIOXIDE 28 mmol/L (21-31); CHLORIDE 103 mmol/L (97-110); CREATININE 0.59 mg/dl (0.44-1.00); GLUCOSE 86 mg/dl (70-220); POTASSIUM 3.9 mmol/L (3.5-5.1); SODIUM 138 mmol/L (135-144)
[2017-09-17] MEDS: ASCORBIC ACID 250 MG TAB GTB (08:25)
[2017-09-17] MEDS: MULTIVIT/CA CARB/B CMPLX/FA TAB GTB (08:25)
[2017-09-17] MEDS: LANSOPRAZOLE 30 MG CAP GTB (08:25)
[2017-09-17] MEDS: LEVOTHYROXINE 100 MCG TAB GTB (08:25)
[2017-09-17] MEDS: NYSTATIN 30 GM POWDER BTL TOP ×2 (08:26→21:25)
[2017-09-17] MEDS: BALSAM PERU/CASTOR OIL 60 GM TUBE TOP ×2 (08:26→21:26)
[2017-09-17] MEDS: COLLAGENASE 5 GM (UD JAR) TOP (08:26)
[2017-09-17] MEDS: TIGECYCLINE 50 MG in SOD CHLORIDE 0.9% 100 ML IVPB ×2 (08:26→21:26)
[2017-09-17] MEDS: ALBUTEROL HFA 8 GM INHALER INH ×3 (15:30→21:14)
[2017-09-17] MEDS: ACETAMINOPHEN 650MG/20.3ML CUP GTB (15:39)
[2017-09-17] MEDS: COLISTIMETHATE 75 MG in SOD CHLORIDE 0.9% 100 ML IVPB (22:04)
[2017-09-18] MEDS: ALBUTEROL HFA 8 GM INHALER INH ×5 (01:33→21:17)
[2017-09-18 05:11] LABS: ADD MAN DIFF? NO
[2017-09-18 05:17] LABS: BASOPHILS % 0.6 % (0.0-2.0); EOSINOPHILS # 0.2 10^3/ul (0.0-0.5); EOSINOPHILS % 2.4 % (0.0-7.0); HEMATOCRIT 24.5 % (37.0-47.0); HEMOGLOBIN 7.5 g/dl (12.0-16.0); LYMPHOCYTES # 0.7 10^3/ul (0.8-2.9); LYMPHOCYTES % 10.3 % (15.0-51.0); MEAN CORPUSCULAR HEMOGLOBIN 28.3 pg (29.0-33.0); MEAN CORPUSCULAR HGB CONC 30.6 g/dl (32.0-37.0); MEAN CORPUSCULAR VOLUME 92.5 fl (82.0-101.0); MEAN PLATELET VOLUME 9.8 fl (7.4-10.4); MONOCYTE # 0.5 10^3/ul (0.3-0.9); MONOCYTES % 6.7 % (0.0-11.0); NEUTROPHIL # 5.5 10^3/ul (1.6-7.5); NEUTROPHILS % 78.9 % (39.0-77.0); PLATELET COUNT 179 10^3/UL (140-415); RED BLOOD COUNT 2.65 10^6/ul (4.20-5.40)
[2017-09-18 06:18] LABS: ANION GAP 13 (8-16); BLOOD UREA NITROGEN 51 mg/dl (7-20); CALCIUM 10.2 mg/dl (8.4-10.2); CARBON DIOXIDE 21 mmol/L (21-31); CHLORIDE 109 mmol/L (97-110); CREATININE 0.58 mg/dl (0.44-1.00); POTASSIUM 3.2 mmol/L (3.5-5.1); SODIUM 140 mmol/L (135-144)
[2017-09-18] MEDS: LANSOPRAZOLE 30 MG CAP GTB (06:26)
[2017-09-18] MEDS: LEVOTHYROXINE 100 MCG TAB GTB (06:26)
[2017-09-18 06:27] LABS: GLUCOSE 578 mg/dl (70-220)
[2017-09-18] MEDS: ASCORBIC ACID 250 MG TAB GTB (08:03)
[2017-09-18] MEDS: MULTIVIT/CA CARB/B CMPLX/FA TAB GTB (08:03)
[2017-09-18] MEDS: NYSTATIN 30 GM POWDER BTL TOP ×2 (08:04→21:29)
[2017-09-18] MEDS: COLLAGENASE 5 GM (UD JAR) TOP (08:04)
[2017-09-18] MEDS: TIGECYCLINE 50 MG in SOD CHLORIDE 0.9% 100 ML IVPB ×2 (08:04→21:29)
[2017-09-18] MEDS: BALSAM PERU/CASTOR OIL 60 GM TUBE TOP ×2 (08:04→21:29)
[2017-09-18] MEDS: ACETAMINOPHEN 650MG/20.3ML CUP GTB (10:52)
[2017-09-18] MEDS: DEXTROSE 5%-0.9% NACL 1,000 ML IV (13:10)
[2017-09-18] MEDS: VANCOMYCIN 1 GM 250 ML IVPB (14:09)
[2017-09-18] MEDS: COLISTIMETHATE 75 MG in SOD CHLORIDE 0.9% 100 ML IVPB (22:29)
[2017-09-19] MEDS: ALBUTEROL HFA 8 GM INHALER INH ×6 (01:46→20:11)
[2017-09-19 05:29] LABS: ADD MAN DIFF? NO
[2017-09-19 05:36] LABS: WHITE BLOOD COUNT 12.7 10^3/ul (4.8-10.8)
[2017-09-19 05:36] LABS: BASOPHILS % 0.2 % (0.0-2.0); EOSINOPHILS # 0.1 10^3/ul (0.0-0.5); HEMATOCRIT 27.2 % (37.0-47.0); HEMOGLOBIN 8.3 g/dl (12.0-16.0); LYMPHOCYTES # 0.8 10^3/ul (0.8-2.9); LYMPHOCYTES % 6.6 % (15.0-51.0); MEAN CORPUSCULAR HEMOGLOBIN 28.3 pg (29.0-33.0); MEAN CORPUSCULAR HGB CONC 30.5 g/dl (32.0-37.0); MEAN CORPUSCULAR VOLUME 92.8 fl (82.0-101.0); MONOCYTE # 0.8 10^3/ul (0.3-0.9); NEUTROPHIL # 10.8 10^3/ul (1.6-7.5); NEUTROPHILS % 85.3 % (39.0-77.0); PLATELET COUNT 169 10^3/UL (140-415); RED BLOOD COUNT 2.93 10^6/ul (4.20-5.40); RED CELL DISTRIBUTION WIDTH 20.9 % (11.5-14.5)
[2017-09-19] MEDS: DEXTROSE 5%-0.9% NACL 1,000 ML IV (05:50)
[2017-09-19 06:02] LABS: ANION GAP 15 (8-16); BLOOD UREA NITROGEN 70 mg/dl (7-20); CALCIUM 11.9 mg/dl (8.4-10.2); CARBON DIOXIDE 23 mmol/L (21-31); CHLORIDE 104 mmol/L (97-110); CREATININE 0.71 mg/dl (0.44-1.00); GLUCOSE 97 mg/dl (70-220); POTASSIUM 3.7 mmol/L (3.5-5.1); SODIUM 138 mmol/L (135-144)
[2017-09-19] MEDS: LANSOPRAZOLE 30 MG CAP GTB (06:49)
[2017-09-19] MEDS: LEVOTHYROXINE 100 MCG TAB GTB (06:49)
[2017-09-19] MEDS: MULTIVIT/CA CARB/B CMPLX/FA TAB GTB (08:14)
[2017-09-19] MEDS: ASCORBIC ACID 250 MG TAB GTB (08:14)
[2017-09-19] MEDS: NYSTATIN 30 GM POWDER BTL TOP ×2 (08:14→21:46)
[2017-09-19] MEDS: BALSAM PERU/CASTOR OIL 60 GM TUBE TOP ×2 (08:14→21:46)
[2017-09-19] MEDS: COLLAGENASE 5 GM (UD JAR) TOP (08:15)
[2017-09-19] MEDS: ALBUMIN HUMAN 25% 100 ML IV (12:20)
[2017-09-19] MEDS: HEPARIN 1000 UNITS/ML 10 ML INJ CATHETER (13:49)
[2017-09-19 14:15] LABS: HAAIG REFLEX REFLEX FILED
[2017-09-19 15:06] LABS: HEPATITIS B SURFACE ANTIGEN NEGATIVE (NEGATIVE)
[2017-09-19 15:24] LABS: HEPATITIS B CORE ANTIBODY NEGATIVE (NEGATIVE); HEPATITIS C VIRAL ANTIBODY NEGATIVE (NEGATIVE)
[2017-09-19] MEDS ORDERED: [UNRECOGNIZED DRUG - REMARK] XX (15:30)
[2017-09-19 15:32] LABS: LACTIC ACID 1.3 mmol/L (0.5-2.0)
[2017-09-19] MEDS: ACETAMINOPHEN 650MG/20.3ML CUP GTB (15:56)
[2017-09-19] MEDS: TRIMETHOPRIM IVPB (16:51)
[2017-09-19] MEDS: DEXTROSE IVPB (16:51)
[2017-09-19] MEDS: SULFAMETHOXAZOLE IVPB (16:51)
[2017-09-19] MEDS ORDERED: PHENYLephrine 20MG IN 250 ML 250 ML (17:50)
[2017-09-19] MEDS: PHENYLephrine 20MG IN 250 ML 250 ML IV (18:29)
[2017-09-19] MEDS: COLISTIMETHATE 75 MG in SOD CHLORIDE 0.9% 100 ML IVPB (21:51)
[2017-09-20] MEDS: PHENYLephrine 20MG IN 250 ML 250 ML IV (00:42)
[2017-09-20] MEDS: ALBUTEROL HFA 8 GM INHALER INH ×6 (00:54→21:22)
[2017-09-20 05:31] LABS: ADD MAN DIFF? NO
[2017-09-20 05:44] LABS: ABNORMAL IP MESSAGE 1; BASOPHIL # 0.1 10^3/ul (0.0-0.1); BASOPHILS % 0.2 % (0.0-2.0); EOSINOPHILS # 0.1 10^3/ul (0.0-0.5); EOSINOPHILS % 0.5 % (0.0-7.0); HEMATOCRIT 28.1 % (37.0-47.0); HEMOGLOBIN 8.5 g/dl (12.0-16.0); LYMPHOCYTES # 1.2 10^3/ul (0.8-2.9); LYMPHOCYTES % 5.2 % (15.0-51.0); MEAN CORPUSCULAR HGB CONC 30.2 g/dl (32.0-37.0); MEAN CORPUSCULAR VOLUME 92.4 fl (82.0-101.0); MONOCYTE # 1.6 10^3/ul (0.3-0.9); MONOCYTES % 7.1 % (0.0-11.0); NEUTROPHIL # 19.3 10^3/ul (1.6-7.5); PLATELET COUNT 216 10^3/UL (140-415); RED BLOOD COUNT 3.04 10^6/ul (4.20-5.40); RED CELL DISTRIBUTION WIDTH 20.9 % (11.5-14.5)
[2017-09-20 05:44] LABS: WHITE BLOOD COUNT 22.4 10^3/ul (4.8-10.8)
[2017-09-20] MEDS: LEVOTHYROXINE 100 MCG TAB GTB (06:06)
[2017-09-20] MEDS: LANSOPRAZOLE 30 MG CAP GTB (06:06)
[2017-09-20 06:36] LABS: ANION GAP 14 (8-16); BLOOD UREA NITROGEN 45 mg/dl (7-20); CALCIUM 10.8 mg/dl (8.4-10.2); CARBON DIOXIDE 24 mmol/L (21-31); CHLORIDE 104 mmol/L (97-110); CREATININE 0.62 mg/dl (0.44-1.00); GLUCOSE 64 mg/dl (70-220); POTASSIUM 3.1 mmol/L (3.5-5.1); SODIUM 139 mmol/L (135-144)
[2017-09-20 06:59] LABS: POSITIVE DIFF @See below
[2017-09-20] MEDS: ASCORBIC ACID 250 MG TAB GTB (08:25)
[2017-09-20] MEDS: BALSAM PERU/CASTOR OIL 60 GM TUBE TOP ×2 (08:25→20:45)
[2017-09-20] MEDS: MULTIVIT/CA CARB/B CMPLX/FA TAB GTB (08:25)
[2017-09-20] MEDS: COLLAGENASE 5 GM (UD JAR) TOP (08:26)
[2017-09-20] MEDS: NYSTATIN 30 GM POWDER BTL TOP ×2 (08:26→20:45)
[2017-09-20] MEDS: ACETAMINOPHEN 650MG/20.3ML CUP GTB ×2 (08:35→14:42)
[2017-09-20] MEDS ORDERED: VANCOMYCIN IV PER PHARMACY XX (09:00)
[2017-09-20] MEDS: PIPER-TAZO 2.25 GM (PMX) 50 ML IVPB ×3 (09:27→22:51)
[2017-09-20 09:44] LABS: LACTIC ACID 1.3 mmol/L (0.5-2.0)
[2017-09-20 12:02] LABS: LIPASE 8092 U/L (23-300)
[2017-09-20] MEDS: SULFAMETHOXAZOLE IVPB (17:29)
[2017-09-20] MEDS: DEXTROSE IVPB (17:29)
[2017-09-20] MEDS: TRIMETHOPRIM IVPB (17:29)
[2017-09-20] MEDS: EPOETIN 10000 UNITS/ML (NON ESRD/NON ONCOLOGY) SC (20:44)
[2017-09-21] MEDS: ALBUTEROL HFA 8 GM INHALER INH ×6 (01:20→20:13)
[2017-09-21] MEDS: PIPER-TAZO 2.25 GM (PMX) 50 ML IVPB ×3 (06:18→21:56)
[2017-09-21] MEDS: LANSOPRAZOLE 30 MG CAP GTB (06:19)
[2017-09-21] MEDS: LEVOTHYROXINE 100 MCG TAB GTB (06:19)
[2017-09-21] MEDS: NYSTATIN 30 GM POWDER BTL TOP ×2 (08:18→20:36)
[2017-09-21] MEDS: COLLAGENASE 5 GM (UD JAR) TOP (08:19)
[2017-09-21] MEDS: BALSAM PERU/CASTOR OIL 60 GM TUBE TOP ×2 (08:19→20:36)
[2017-09-21] MEDS: ALBUMIN HUMAN 25% 100 ML IV (10:24)
[2017-09-21] MEDS: HEPARIN 1000 UNITS/ML 10 ML INJ CATHETER (12:37)
[2017-09-21 12:53] LABS: ANION GAP 17 (8-16); BLOOD UREA NITROGEN 50 mg/dl (7-20); CALCIUM 11.3 mg/dl (8.4-10.2); CARBON DIOXIDE 23 mmol/L (21-31); CHLORIDE 100 mmol/L (97-110); CREATININE 0.68 mg/dl (0.44-1.00); GLUCOSE 63 mg/dl (70-220); POTASSIUM 3.3 mmol/L (3.5-5.1); SODIUM 137 mmol/L (135-144)
[2017-09-21] MEDS: ASCORBIC ACID 250 MG TAB GTB (12:53)
[2017-09-21] MEDS: ACETAMINOPHEN 650MG/20.3ML CUP GTB (12:53)
[2017-09-21] MEDS: MULTIVIT/CA CARB/B CMPLX/FA TAB GTB (12:53)
[2017-09-21 14:12] LABS: VANCOMYCIN,TROUGH 15.1 ug/ml (10.0-20.0)
[2017-09-21] MEDS: VANCOMYCIN 1 GM 250 ML IVPB (15:46)
[2017-09-21 15:58] LABS: WHITE BLOOD COUNT 28.5 10^3/ul (4.8-10.8)
[2017-09-21 15:58] LABS: ABNORMAL IP MESSAGE 1; HEMOGLOBIN 8.1 g/dl (12.0-16.0); MEAN CORPUSCULAR HEMOGLOBIN 27.9 pg (29.0-33.0); MEAN CORPUSCULAR VOLUME 93.1 fl (82.0-101.0); MEAN PLATELET VOLUME 9.9 fl (7.4-10.4); PLATELET COUNT 160 10^3/UL (140-415); RED CELL DISTRIBUTION WIDTH 21.2 % (11.5-14.5)
[2017-09-21 16:04] LABS: ADD MAN DIFF? YES; POSITIVE DIFF @See below
[2017-09-21 16:47] LABS: ANISOCYTOSIS 2+ (0-0); EOSINOPHILS % (M) 1 % (0-7); LYMPHOCYTES #M 0.8 10^3/ul (0.8-2.9); LYMPHOCYTES % (M) 3 % (15-51); MICROCYTOSIS 1+ (0-0); MONOCYTE #M 0.8 10^3/ul (0.3-0.9); MONOCYTES % (M) 3 % (0-11); PLATELET MORPHOLOGY COMMENT @See below; SEGMENTED NEUTROPHILS (M) % 93 % (39-77); SMUDGE%M 5 % (0-0)
[2017-09-21] MEDS: DEXTROSE IVPB (17:57)
[2017-09-21] MEDS: SULFAMETHOXAZOLE IVPB (17:57)
[2017-09-21] MEDS: TRIMETHOPRIM IVPB (17:57)
[2017-09-22] MEDS: ALBUTEROL HFA 8 GM INHALER INH ×6 (00:57→22:55)
[2017-09-22] MEDS: PIPER-TAZO 2.25 GM (PMX) 50 ML IVPB ×3 (06:34→21:33)
[2017-09-22] MEDS: ASCORBIC ACID 250 MG TAB GTB (09:32)
[2017-09-22] MEDS: COLLAGENASE 5 GM (UD JAR) TOP (09:32)
[2017-09-22] MEDS: MULTIVIT/CA CARB/B CMPLX/FA TAB GTB (09:32)
[2017-09-22] MEDS: LANSOPRAZOLE 30 MG CAP GTB (09:32)
[2017-09-22] MEDS: LEVOTHYROXINE 100 MCG TAB GTB (09:32)
[2017-09-22] MEDS: NYSTATIN 30 GM POWDER BTL TOP ×2 (09:33→21:33)
[2017-09-22] MEDS: BALSAM PERU/CASTOR OIL 60 GM TUBE TOP ×2 (09:33→21:34)
[2017-09-22] MEDS: ACETAMINOPHEN 650MG/20.3ML CUP GTB (16:41)
[2017-09-22] MEDS ORDERED: AMIKACIN IV PER PHARMACY XX (17:00)
[2017-09-22] MEDS: EPOETIN 10000 UNITS/ML (NON ESRD/NON ONCOLOGY) SC (19:30)
[2017-09-22] MEDS: TIGECYCLINE 100 MG in SOD CHLORIDE 0.9% 100 ML IVPB (19:33)
[2017-09-22] MEDS: AMIKACIN 500 MG in SOD CHLORIDE 0.9% 100 ML IVPB (21:33)
[2017-09-23] MEDS: ALBUTEROL HFA 8 GM INHALER INH ×6 (01:06→21:30)
[2017-09-23 05:14] LABS: ADD MAN DIFF? NO
[2017-09-23 05:15] LABS: ABNORMAL IP MESSAGE 1; BASOPHIL # 0.1 10^3/ul (0.0-0.1); BASOPHILS % 0.2 % (0.0-2.0); EOSINOPHILS # 0.2 10^3/ul (0.0-0.5); EOSINOPHILS % 0.6 % (0.0-7.0); HEMATOCRIT 25.2 % (37.0-47.0); HEMOGLOBIN 7.7 g/dl (12.0-16.0); LYMPHOCYTES # 1.7 10^3/ul (0.8-2.9); MEAN CORPUSCULAR HEMOGLOBIN 28.3 pg (29.0-33.0); MEAN CORPUSCULAR HGB CONC 30.6 g/dl (32.0-37.0); MEAN CORPUSCULAR VOLUME 92.6 fl (82.0-101.0); MEAN PLATELET VOLUME 10.5 fl (7.4-10.4); MONOCYTE # 2.4 10^3/ul (0.3-0.9); MONOCYTES % 9.9 % (0.0-11.0); NEUTROPHIL # 19.6 10^3/ul (1.6-7.5); NEUTROPHILS % 80.9 % (39.0-77.0); PLATELET COUNT 173 10^3/UL (140-415); RED BLOOD COUNT 2.72 10^6/ul (4.20-5.40); RED CELL DISTRIBUTION WIDTH 20.4 % (11.5-14.5)
[2017-09-23 05:15] LABS: WHITE BLOOD COUNT 24.2 10^3/ul (4.8-10.8)
[2017-09-23 05:16] LABS: POSITIVE DIFF @See below
[2017-09-23 05:31] LABS: ANION GAP 15 (8-16); BLOOD UREA NITROGEN 46 mg/dl (7-20); CALCIUM 11.2 mg/dl (8.4-10.2); CARBON DIOXIDE 21 mmol/L (21-31); CHLORIDE 96 mmol/L (97-110); CREATININE 0.77 mg/dl (0.44-1.00); GLUCOSE 204 mg/dl (70-220); POTASSIUM 3.7 mmol/L (3.5-5.1); SODIUM 128 mmol/L (135-144)
[2017-09-23 06:02] LABS: LIPASE 2186 U/L (23-300)
[2017-09-23] MEDS: PIPER-TAZO 2.25 GM (PMX) 50 ML IVPB (06:49)
[2017-09-23] MEDS: LEVOTHYROXINE 100 MCG TAB GTB (06:51)
[2017-09-23] MEDS: LANSOPRAZOLE 30 MG CAP GTB (06:51)
[2017-09-23] MEDS: MULTIVIT/CA CARB/B CMPLX/FA TAB GTB (08:45)
[2017-09-23] MEDS: ASCORBIC ACID 250 MG TAB GTB (08:45)
[2017-09-23] MEDS ORDERED: TOBRAMYCIN IV PER PHARMACY XX (10:00)
[2017-09-23] MEDS: HEPARIN 1000 UNITS/ML 10 ML INJ CATHETER (12:14)
[2017-09-23] MEDS: SOD CHLORIDE 0.9% IVPB (14:59)
[2017-09-23] MEDS: CASPOFUNGIN 70 MG in SOD CHLORIDE 0.9% 250 ML IVPB (14:59)
[2017-09-23] MEDS: TOBRAMYCIN IVPB (14:59)
[2017-09-23] MEDS: TIGECYCLINE 50 MG in SOD CHLORIDE 0.9% 100 ML IVPB ×2 (15:00→21:20)
[2017-09-23] MEDS: NYSTATIN 30 GM POWDER BTL TOP ×2 (15:00→21:19)
[2017-09-23] MEDS: COLLAGENASE 5 GM (UD JAR) TOP (15:01)
[2017-09-23] MEDS: BALSAM PERU/CASTOR OIL 60 GM TUBE TOP ×2 (15:01→21:20)
[2017-09-23] MEDS ORDERED: ACETAMINOPHEN 1000MG/100ML IV 100 ML IVPB (18:00)
[2017-09-23] MEDS ORDERED: AMIKACIN 350 MG in SOD CHLORIDE 0.9% 100 ML IVPB (20:00)
[2017-09-24] MEDS: ALBUTEROL HFA 8 GM INHALER INH ×6 (01:29→20:43)
[2017-09-24] MEDS: LEVOTHYROXINE 100 MCG TAB GTB (08:02)
[2017-09-24] MEDS: ASCORBIC ACID 250 MG TAB GTB (08:02)
[2017-09-24] MEDS: MULTIVIT/CA CARB/B CMPLX/FA TAB GTB (08:02)
[2017-09-24] MEDS: CASPOFUNGIN 50 MG in SOD CHLORIDE 0.9% 250 ML IVPB (08:03)
[2017-09-24] MEDS: NYSTATIN 30 GM POWDER BTL TOP ×2 (08:03→20:54)
[2017-09-24] MEDS: BALSAM PERU/CASTOR OIL 60 GM TUBE TOP ×2 (08:03→20:54)
[2017-09-24] MEDS: TIGECYCLINE 50 MG in SOD CHLORIDE 0.9% 100 ML IVPB ×2 (08:03→20:52)
[2017-09-24] MEDS: LANSOPRAZOLE 30 MG CAP GTB (08:03)
[2017-09-24] MEDS: COLLAGENASE 5 GM (UD JAR) TOP (08:04)
[2017-09-24] MEDS: SOD CHLORIDE 0.9% 1,000 ML IV (15:46)
[2017-09-24] MEDS: ACETAMINOPHEN 650MG/20.3ML CUP GTB (19:34)
[2017-09-25] MEDS: ALBUTEROL HFA 8 GM INHALER INH ×7 (02:15→21:05)
[2017-09-25 05:10] LABS: ADD MAN DIFF? NO
[2017-09-25 05:32] LABS: WHITE BLOOD COUNT 9.9 10^3/ul (4.8-10.8)
[2017-09-25 05:32] LABS: BASOPHILS % 0.3 % (0.0-2.0); EOSINOPHILS # 0.2 10^3/ul (0.0-0.5); EOSINOPHILS % 1.7 % (0.0-7.0); HEMATOCRIT 26.2 % (37.0-47.0); HEMOGLOBIN 7.9 g/dl (12.0-16.0); LYMPHOCYTES # 1.1 10^3/ul (0.8-2.9); LYMPHOCYTES % 11.5 % (15.0-51.0); MEAN CORPUSCULAR HEMOGLOBIN 27.8 pg (29.0-33.0); MEAN CORPUSCULAR HGB CONC 30.2 g/dl (32.0-37.0); MEAN CORPUSCULAR VOLUME 92.3 fl (82.0-101.0); MEAN PLATELET VOLUME 10.6 fl (7.4-10.4); MONOCYTE # 0.9 10^3/ul (0.3-0.9); MONOCYTES % 8.9 % (0.0-11.0); NEUTROPHIL # 7.5 10^3/ul (1.6-7.5); PLATELET COUNT 143 10^3/UL (140-415); RED BLOOD COUNT 2.84 10^6/ul (4.20-5.40); RED CELL DISTRIBUTION WIDTH 19.8 % (11.5-14.5)
[2017-09-25 05:54] LABS: ALANINE AMINOTRANSFERASE 31 IU/L (13-69); ALBUMIN 2.2 g/dl (3.3-4.9); ALBUMIN/GLOBULIN RATIO 0.88; ALKALINE PHOSPHATASE 332 IU/L (42-121); ANION GAP 13 (8-16); ASPARTATE AMINO TRANSFERASE 30 IU/L (15-46); BLOOD UREA NITROGEN 49 mg/dl (7-20); CALCIUM 11.2 mg/dl (8.4-10.2); CARBON DIOXIDE 24 mmol/L (21-31); CHLORIDE 104 mmol/L (97-110); CREATININE 0.74 mg/dl (0.44-1.00); GLUCOSE 86 mg/dl (70-220); POTASSIUM 3.7 mmol/L (3.5-5.1); SODIUM 137 mmol/L (135-144); TOTAL PROTEIN 4.7 g/dl (6.1-8.1)
[2017-09-25] MEDS: LANSOPRAZOLE 30 MG CAP GTB (07:43)
[2017-09-25] MEDS: LEVOTHYROXINE 100 MCG TAB GTB (07:46)
[2017-09-25] MEDS: TIGECYCLINE 50 MG in SOD CHLORIDE 0.9% 100 ML IVPB ×2 (09:14→21:41)
[2017-09-25] MEDS: MULTIVIT/CA CARB/B CMPLX/FA TAB GTB (09:15)
[2017-09-25] MEDS: NYSTATIN 30 GM POWDER BTL TOP ×2 (09:15→21:42)
[2017-09-25] MEDS: ASCORBIC ACID 250 MG TAB GTB (09:15)
[2017-09-25] MEDS: COLLAGENASE 5 GM (UD JAR) TOP (09:15)
[2017-09-25] MEDS: BALSAM PERU/CASTOR OIL 60 GM TUBE TOP ×2 (09:16→21:42)
[2017-09-25] MEDS: CASPOFUNGIN 50 MG in SOD CHLORIDE 0.9% 250 ML IVPB (10:25)
[2017-09-25] MEDS: ALTEPLASE (CATHFLO) 2 MG INJ CATHETER (12:32)
[2017-09-25 14:35] LABS: AMYLASE 394 U/L (11-123)
[2017-09-25] MEDS: ACETAMINOPHEN 650MG/20.3ML CUP GTB (16:55)
[2017-09-25] MEDS: SOD CHLORIDE 0.9% 1,000 ML IV (19:18)
[2017-09-26] MEDS: ACETAMINOPHEN 650MG/20.3ML CUP GTB ×2 (01:52→21:56)
[2017-09-26] MEDS: ALBUTEROL HFA 8 GM INHALER INH ×6 (02:04→21:23)
[2017-09-26 05:28] LABS: ADD MAN DIFF? NO
[2017-09-26 05:36] LABS: WHITE BLOOD COUNT 11.1 10^3/ul (4.8-10.8)
[2017-09-26 05:36] LABS: BASOPHILS % 0.3 % (0.0-2.0); EOSINOPHILS # 0.3 10^3/ul (0.0-0.5); EOSINOPHILS % 2.3 % (0.0-7.0); HEMATOCRIT 26.7 % (37.0-47.0); HEMOGLOBIN 7.9 g/dl (12.0-16.0); LYMPHOCYTES # 1.2 10^3/ul (0.8-2.9); MEAN CORPUSCULAR HEMOGLOBIN 27.1 pg (29.0-33.0); MEAN CORPUSCULAR HGB CONC 29.6 g/dl (32.0-37.0); MEAN CORPUSCULAR VOLUME 91.8 fl (82.0-101.0); MEAN PLATELET VOLUME 10.8 fl (7.4-10.4); MONOCYTES % 8.8 % (0.0-11.0); NEUTROPHIL # 8.4 10^3/ul (1.6-7.5); NEUTROPHILS % 75.6 % (39.0-77.0); NUCLEATED RED BLOOD CELLS% 0.2 /100WBC (0.0-0.0); PLATELET COUNT 128 10^3/UL (140-415); RED BLOOD COUNT 2.91 10^6/ul (4.20-5.40)
[2017-09-26 05:57] LABS: ALANINE AMINOTRANSFERASE 22 IU/L (13-69); ALBUMIN 2.1 g/dl (3.3-4.9); ALBUMIN/GLOBULIN RATIO 0.75; ALKALINE PHOSPHATASE 328 IU/L (42-121); ANION GAP 15 (8-16); ASPARTATE AMINO TRANSFERASE 25 IU/L (15-46); BLOOD UREA NITROGEN 58 mg/dl (7-20); CARBON DIOXIDE 21 mmol/L (21-31); CHLORIDE 104 mmol/L (97-110); CREATININE 0.85 mg/dl (0.44-1.00); GLUCOSE 83 mg/dl (70-220); POTASSIUM 3.4 mmol/L (3.5-5.1); SODIUM 137 mmol/L (135-144); TOTAL PROTEIN 4.9 g/dl (6.1-8.1)
[2017-09-26] MEDS: MULTIVIT/CA CARB/B CMPLX/FA TAB GTB (08:27)
[2017-09-26] MEDS: LANSOPRAZOLE 30 MG CAP GTB (08:27)
[2017-09-26] MEDS: ASCORBIC ACID 250 MG TAB GTB (08:27)
[2017-09-26] MEDS: MIDODRINE 5 MG TAB GTB ×3 (08:28→16:21)
[2017-09-26] MEDS: LEVOTHYROXINE 100 MCG TAB GTB (08:28)
[2017-09-26] MEDS: NYSTATIN 30 GM POWDER BTL TOP ×2 (08:28→21:57)
[2017-09-26] MEDS: BALSAM PERU/CASTOR OIL 60 GM TUBE TOP ×2 (08:29→21:57)
[2017-09-26] MEDS: CASPOFUNGIN 50 MG in SOD CHLORIDE 0.9% 250 ML IVPB (09:47)
[2017-09-26] MEDS: COLLAGENASE 5 GM (UD JAR) TOP (09:47)
[2017-09-26] MEDS: TIGECYCLINE 50 MG in SOD CHLORIDE 0.9% 100 ML IVPB ×2 (11:14→21:57)
[2017-09-26] MEDS: ALBUMIN HUMAN 25% 100 ML IV (15:11)
[2017-09-26] MEDS: LIDOCAINE 1% (MPF) 5 ML VIAL SC (15:30)
[2017-09-26] MEDS: HEPARIN 1000 UNITS/ML 10 ML INJ CATHETER (17:57)
[2017-09-26] MEDS: SOD CHLORIDE 0.9% 1,000 ML IV (19:00)
[2017-09-26] MEDS: TOBRAMYCIN 80 MG in SOD CHLORIDE 0.9% 50 ML IVPB (20:05)
[2017-09-27] MEDS: ALBUTEROL HFA 8 GM INHALER INH ×6 (01:24→21:50)
[2017-09-27 04:56] LABS: ADD MAN DIFF? NO
[2017-09-27 04:58] LABS: BASOPHIL # 0.1 10^3/ul (0.0-0.1); BASOPHILS % 0.4 % (0.0-2.0); EOSINOPHILS # 0.2 10^3/ul (0.0-0.5); EOSINOPHILS % 1.4 % (0.0-7.0); HEMATOCRIT 25.7 % (37.0-47.0); HEMOGLOBIN 7.6 g/dl (12.0-16.0); LYMPHOCYTES # 1.3 10^3/ul (0.8-2.9); LYMPHOCYTES % 9.5 % (15.0-51.0); MEAN CORPUSCULAR HEMOGLOBIN 27.4 pg (29.0-33.0); MEAN CORPUSCULAR HGB CONC 29.6 g/dl (32.0-37.0); MEAN CORPUSCULAR VOLUME 92.8 fl (82.0-101.0); MEAN PLATELET VOLUME 10.9 fl (7.4-10.4); MONOCYTES % 7.1 % (0.0-11.0); NEUTROPHIL # 11.2 10^3/ul (1.6-7.5); NEUTROPHILS % 79.7 % (39.0-77.0); PLATELET COUNT 130 10^3/UL (140-415); RED BLOOD COUNT 2.77 10^6/ul (4.20-5.40)
[2017-09-27 05:19] LABS: ALANINE AMINOTRANSFERASE 24 IU/L (13-69); ALBUMIN 2.1 g/dl (3.3-4.9); ALBUMIN/GLOBULIN RATIO 0.87; ALKALINE PHOSPHATASE 325 IU/L (42-121); ANION GAP 15 (8-16); ASPARTATE AMINO TRANSFERASE 24 IU/L (15-46); BLOOD UREA NITROGEN 41 mg/dl (7-20); CALCIUM 10.4 mg/dl (8.4-10.2); CARBON DIOXIDE 23 mmol/L (21-31); CHLORIDE 104 mmol/L (97-110); CREATININE 0.63 mg/dl (0.44-1.00); GLUCOSE 69 mg/dl (70-220); POTASSIUM 3.3 mmol/L (3.5-5.1); SODIUM 139 mmol/L (135-144); TOTAL PROTEIN 4.5 g/dl (6.1-8.1)
[2017-09-27 06:10] LABS: LIPASE 8369 U/L (23-300)
[2017-09-27] MEDS: LANSOPRAZOLE 30 MG CAP GTB (06:51)
[2017-09-27] MEDS: LEVOTHYROXINE 100 MCG TAB GTB (06:51)
[2017-09-27] MEDS ORDERED: DEXTROSE 50% 50 ML SYRINGE (08:11)
[2017-09-27] MEDS: MULTIVIT/CA CARB/B CMPLX/FA TAB GTB (08:26)
[2017-09-27] MEDS: ASCORBIC ACID 250 MG TAB GTB (08:26)
[2017-09-27] MEDS: COLLAGENASE 5 GM (UD JAR) TOP (08:26)
[2017-09-27] MEDS: MIDODRINE 5 MG TAB GTB ×3 (08:34→18:06)
[2017-09-27] MEDS: CASPOFUNGIN 50 MG in SOD CHLORIDE 0.9% 250 ML IVPB (08:34)
[2017-09-27] MEDS: DEXTROSE 50% 50 ML SYRINGE IV (08:52)
[2017-09-27] MEDS: TIGECYCLINE 50 MG in SOD CHLORIDE 0.9% 100 ML IVPB ×2 (10:02→21:37)
[2017-09-27] MEDS: NYSTATIN 30 GM POWDER BTL TOP ×2 (10:05→23:03)
[2017-09-27] MEDS: BALSAM PERU/CASTOR OIL 60 GM TUBE TOP ×2 (10:05→21:44)
[2017-09-27 11:57] LABS: IMMEDIATE SPIN CROSSMATCH 1 1
[2017-09-27] MEDS: ACETAMINOPHEN 650MG/20.3ML CUP GTB (15:08)
[2017-09-27] MEDS: POTASSIUM CHLORIDE 100 ML IVPB ×2 (15:21→19:44)
[2017-09-27] MEDS: SOD CHLORIDE 0.9% 1,000 ML IV ×2 (15:29→19:52)
[2017-09-27] MEDS: EPOETIN 10000 UNITS/ML (NON ESRD/NON ONCOLOGY) SC (18:10)
[2017-09-28] MEDS: ALBUTEROL HFA 8 GM INHALER INH ×6 (01:05→21:38)
[2017-09-28 06:38] LABS: LIPASE 7696 U/L (23-300)
[2017-09-28] MEDS: LANSOPRAZOLE 30 MG CAP GTB (07:05)
[2017-09-28 08:19] LABS: ADD MAN DIFF? NO
[2017-09-28 08:21] LABS: ABNORMAL IP MESSAGE 1; BASOPHIL # 0.1 10^3/ul (0.0-0.1); BASOPHILS % 0.2 % (0.0-2.0); EOSINOPHILS # 0.1 10^3/ul (0.0-0.5); EOSINOPHILS % 0.2 % (0.0-7.0); HEMATOCRIT 33.1 % (37.0-47.0); HEMOGLOBIN 10.3 g/dl (12.0-16.0); LYMPHOCYTES # 1.2 10^3/ul (0.8-2.9); LYMPHOCYTES % 4.3 % (15.0-51.0); MEAN CORPUSCULAR HEMOGLOBIN 28.5 pg (29.0-33.0); MEAN CORPUSCULAR HGB CONC 31.1 g/dl (32.0-37.0); MEAN CORPUSCULAR VOLUME 91.4 fl (82.0-101.0); MEAN PLATELET VOLUME 10.6 fl (7.4-10.4); MONOCYTE # 0.9 10^3/ul (0.3-0.9); MONOCYTES % 3.2 % (0.0-11.0); NEUTROPHILS % 90.9 % (39.0-77.0); PLATELET COUNT 114 10^3/UL (140-415); RED BLOOD COUNT 3.62 10^6/ul (4.20-5.40); RED CELL DISTRIBUTION WIDTH 19.5 % (11.5-14.5)
[2017-09-28 08:21] LABS: WHITE BLOOD COUNT 28.6 10^3/ul (4.8-10.8)
[2017-09-28 08:22] LABS: POSITIVE DIFF @See below
[2017-09-28] MEDS: LEVOTHYROXINE 100 MCG TAB GTB (08:25)
[2017-09-28] MEDS: MULTIVIT/CA CARB/B CMPLX/FA TAB GTB (08:25)
[2017-09-28] MEDS: NYSTATIN 30 GM POWDER BTL TOP ×2 (08:25→22:15)
[2017-09-28] MEDS: MIDODRINE 5 MG TAB GTB ×3 (08:25→18:29)
[2017-09-28] MEDS: COLLAGENASE 5 GM (UD JAR) TOP (08:25)
[2017-09-28] MEDS: ASCORBIC ACID 250 MG TAB GTB (08:25)
[2017-09-28] MEDS: BALSAM PERU/CASTOR OIL 60 GM TUBE TOP ×2 (08:28→22:15)
[2017-09-28 08:31] LABS: ANION GAP 13 (8-16); BLOOD UREA NITROGEN 51 mg/dl (7-20); CALCIUM 10.9 mg/dl (8.4-10.2); CARBON DIOXIDE 22 mmol/L (21-31); CHLORIDE 105 mmol/L (97-110); CREATININE 0.68 mg/dl (0.44-1.00); GLUCOSE 54 mg/dl (70-220); MAGNESIUM 2.2 mg/dl (1.7-2.5); PHOSPHORUS 5.3 mg/dl (2.5-4.9); SODIUM 136 mmol/L (135-144)
[2017-09-28] MEDS: TIGECYCLINE 50 MG in SOD CHLORIDE 0.9% 100 ML IVPB ×2 (09:06→22:15)
[2017-09-28] MEDS: CASPOFUNGIN 50 MG in SOD CHLORIDE 0.9% 250 ML IVPB (09:45)
[2017-09-28 09:54] LABS: LACTIC ACID 0.9 mmol/L (0.5-2.0)
[2017-09-28] MEDS ORDERED: HEPARIN 1000 UNITS/ML 10 ML INJ (14:57)
[2017-09-28] MEDS ORDERED: LIDOCAINE 1% (MDV) 10 ML INJ (14:57)
[2017-09-28] MEDS ORDERED: HEPARIN 1000 UNITS/NS (A-LINE) 1,000 ML (14:57)
[2017-09-28] MEDS ORDERED: SOD CHLORIDE 0.9% 500 ML (14:57)
[2017-09-28 16:32] LABS: LACTIC ACID 0.8 mmol/L (0.5-2.0)
[2017-09-28] MEDS: ALBUMIN HUMAN 25% 100 ML IV (20:59)
[2017-09-28] MEDS: HEPARIN 1000 UNITS/ML 10 ML INJ CATHETER (21:33)
[2017-09-28] MEDS: TOBRAMYCIN 80 MG in SOD CHLORIDE 0.9% 50 ML IVPB (22:16)
[2017-09-28] MEDS: NORepinephrine 8MG/250 ML (PMX 250 ML IV (23:24)
[2017-09-29] MEDS: ALBUTEROL HFA 8 GM INHALER INH ×6 (01:17→21:18)
[2017-09-29 04:58] LABS: WHITE BLOOD COUNT 35.4 10^3/ul (4.8-10.8)
[2017-09-29 04:58] LABS: ABNORMAL IP MESSAGE 1; HEMATOCRIT 30.6 % (37.0-47.0); HEMOGLOBIN 9.5 g/dl (12.0-16.0); MEAN CORPUSCULAR HEMOGLOBIN 27.3 pg (29.0-33.0); MEAN CORPUSCULAR VOLUME 87.9 fl (82.0-101.0); MEAN PLATELET VOLUME 11.2 fl (7.4-10.4); PLATELET COUNT 115 10^3/UL (140-415); RED BLOOD COUNT 3.48 10^6/ul (4.20-5.40); RED CELL DISTRIBUTION WIDTH 19.7 % (11.5-14.5)
[2017-09-29 05:22] LABS: ANION GAP 14 (8-16); BLOOD UREA NITROGEN 41 mg/dl (7-20); CALCIUM 10.7 mg/dl (8.4-10.2); CARBON DIOXIDE 22 mmol/L (21-31); CHLORIDE 105 mmol/L (97-110); CREATININE 0.64 mg/dl (0.44-1.00); GLUCOSE 54 mg/dl (70-220); SODIUM 137 mmol/L (135-144)
[2017-09-29 05:54] LABS: POSITIVE DIFF @See below
[2017-09-29 05:55] LABS: ADD MAN DIFF? YES
[2017-09-29 06:20] LABS: LIPASE 4309 U/L (23-300)
[2017-09-29] MEDS: LANSOPRAZOLE 30 MG CAP GTB (06:27)
[2017-09-29] MEDS: LEVOTHYROXINE 100 MCG TAB GTB (06:27)
[2017-09-29] MEDS ORDERED: DEXTROSE 50% 50 ML SYRINGE (06:53)
[2017-09-29] MEDS: TIGECYCLINE 50 MG in SOD CHLORIDE 0.9% 100 ML IVPB ×2 (07:50→20:11)
[2017-09-29] MEDS: ASCORBIC ACID 250 MG TAB GTB (08:05)
[2017-09-29] MEDS: MULTIVIT/CA CARB/B CMPLX/FA TAB GTB (08:05)
[2017-09-29] MEDS: BALSAM PERU/CASTOR OIL 60 GM TUBE TOP ×2 (08:05→20:02)
[2017-09-29] MEDS: NYSTATIN 30 GM POWDER BTL TOP ×2 (08:05→20:02)
[2017-09-29] MEDS: COLLAGENASE 5 GM (UD JAR) TOP (08:06)
[2017-09-29] MEDS: MIDODRINE 5 MG TAB GTB ×3 (08:53→17:00)
[2017-09-29] MEDS: CASPOFUNGIN 50 MG in SOD CHLORIDE 0.9% 250 ML IVPB (08:54)
[2017-09-29 09:28] LABS: ANISOCYTOSIS 1+ (0-0); BAND NEUTROPHILS % (M) 17 % (0-4); LYMPHOCYTES #M 0.7 10^3/ul (0.8-2.9); LYMPHOCYTES % (M) 2 % (15-51); MICROCYTOSIS 1+ (0-0); MONOCYTE #M 0.7 10^3/ul (0.3-0.9); MONOCYTES % (M) 2 % (0-11); PLATELET ESTIMATE DECREASED; POIKILOCYTOSIS 3+ (0-0); POLYCHROMASIA 2+ (0-0); SEG NEUT #M 30.1 10^3/ul (1.6-7.5); SEGMENTED NEUTROPHILS (M) % 79 % (39-77); SMUDGE%M 32 % (0-0)
[2017-09-29] MEDS: ACETAMINOPHEN 650MG/20.3ML CUP GTB ×2 (11:12→18:31)
[2017-09-29] MEDS: EPOETIN 10000 UNITS/ML (NON ESRD/NON ONCOLOGY) SC (17:59)
[2017-09-29] MEDS ORDERED: VANCOMYCIN IV PER PHARMACY XX (18:00)
[2017-09-29] MEDS: VANCOMYCIN 2 GM in SOD CHLORIDE 0.9% 500 ML IVPB (20:11)
[2017-09-30] MEDS: ALBUTEROL HFA 8 GM INHALER INH ×6 (01:38→21:33)
[2017-09-30] MEDS: ACCU-CHEK XX ×5 (05:00→20:29)
[2017-09-30 05:08] LABS: ADD MAN DIFF? NO
[2017-09-30 05:26] LABS: WHITE BLOOD COUNT 31.6 10^3/ul (4.8-10.8)
[2017-09-30 05:26] LABS: ABNORMAL IP MESSAGE 1; BASOPHIL # 0.1 10^3/ul (0.0-0.1); BASOPHILS % 0.2 % (0.0-2.0); EOSINOPHILS % 0.1 % (0.0-7.0); HEMATOCRIT 30.4 % (37.0-47.0); HEMOGLOBIN 9.6 g/dl (12.0-16.0); LYMPHOCYTES # 3.2 10^3/ul (0.8-2.9); LYMPHOCYTES % 10.1 % (15.0-51.0); MEAN CORPUSCULAR HEMOGLOBIN 28.4 pg (29.0-33.0); MEAN CORPUSCULAR HGB CONC 31.6 g/dl (32.0-37.0); MEAN CORPUSCULAR VOLUME 89.9 fl (82.0-101.0); MEAN PLATELET VOLUME 10.9 fl (7.4-10.4); MONOCYTE # 2.1 10^3/ul (0.3-0.9); MONOCYTES % 6.7 % (0.0-11.0); NEUTROPHIL # 25.9 10^3/ul (1.6-7.5); NEUTROPHILS % 81.7 % (39.0-77.0); NUCLEATED RED BLOOD CELLS% 0.1 /100WBC (0.0-0.0); PLATELET COUNT 144 10^3/UL (140-415); RED BLOOD COUNT 3.38 10^6/ul (4.20-5.40); RED CELL DISTRIBUTION WIDTH 19.9 % (11.5-14.5)
[2017-09-30 05:31] LABS: POSITIVE DIFF @See below
[2017-09-30 05:33] LABS: ALANINE AMINOTRANSFERASE 29 IU/L (13-69); ALBUMIN 2.4 g/dl (3.3-4.9); ALKALINE PHOSPHATASE 432 IU/L (42-121); ANION GAP 16 (8-16); ASPARTATE AMINO TRANSFERASE 35 IU/L (15-46); BILIRUBIN,INDIRECT 0.2 mg/dl (0-1.1); BILIRUBIN,TOTAL 0.2 mg/dl (0.2-1.3); BLOOD UREA NITROGEN 48 mg/dl (7-20); CALCIUM 10.6 mg/dl (8.4-10.2); CARBON DIOXIDE 21 mmol/L (21-31); CHLORIDE 107 mmol/L (97-110); CREATININE 0.71 mg/dl (0.44-1.00); GLUCOSE 59 mg/dl (70-220); MAGNESIUM 2.1 mg/dl (1.7-2.5); PHOSPHORUS 5.8 mg/dl (2.5-4.9); POTASSIUM 4.2 mmol/L (3.5-5.1); SODIUM 140 mmol/L (135-144); TOTAL PROTEIN 4.8 g/dl (6.1-8.1); TRIGLYCERIDES 46 mg/dl (0-149)
[2017-09-30] MEDS: LEVOTHYROXINE 100 MCG TAB GTB (06:12)
[2017-09-30] MEDS: LANSOPRAZOLE 30 MG CAP GTB (06:12)
[2017-09-30] MEDS: NORepinephrine 8MG/250 ML (PMX 250 ML IV (06:15)
[2017-09-30 06:39] LABS: PREALBUMIN 5.7 mg/dl (17.6-36.0)
[2017-09-30] MEDS: COLLAGENASE 5 GM (UD JAR) TOP (08:02)
[2017-09-30] MEDS: CASPOFUNGIN 50 MG in SOD CHLORIDE 0.9% 250 ML IVPB (08:02)
[2017-09-30] MEDS: NYSTATIN 30 GM POWDER BTL TOP ×2 (08:02→20:29)
[2017-09-30] MEDS: BALSAM PERU/CASTOR OIL 60 GM TUBE TOP ×2 (08:02→20:29)
[2017-09-30] MEDS ORDERED: DEXTROSE 50% 50 ML SYRINGE (08:12)
[2017-09-30] MEDS: MULTIVIT/CA CARB/B CMPLX/FA TAB GTB (08:23)
[2017-09-30] MEDS: ASCORBIC ACID 250 MG TAB GTB (08:23)
[2017-09-30] MEDS: TIGECYCLINE 50 MG in SOD CHLORIDE 0.9% 100 ML IVPB ×2 (09:41→20:28)
[2017-09-30] MEDS: MIDODRINE 5 MG TAB GTB ×3 (09:41→17:33)
[2017-09-30] MEDS: HEPARIN 1000 UNITS/ML 10 ML INJ CATHETER (14:33)
[2017-09-30] MEDS: ACETAMINOPHEN 650MG/20.3ML CUP GTB (17:32)
[2017-09-30] MEDS: SEVELAMER CARBONATE 0.8 GM PKT GTB (17:32)
[2017-09-30] MEDS: TOBRAMYCIN 80 MG in SOD CHLORIDE 0.9% 50 ML IVPB (18:33)
[2017-10-01] MEDS: ACCU-CHEK XX ×6 (01:00→21:22)
[2017-10-01] MEDS ORDERED: DEXTROSE 50% 50 ML SYRINGE (01:34)
[2017-10-01] MEDS: ACETAMINOPHEN 650MG/20.3ML CUP GTB (01:45)
[2017-10-01] MEDS: DEXTROSE 50% 50 ML SYRINGE IV (01:53)
[2017-10-01] MEDS: ALBUTEROL HFA 8 GM INHALER INH ×7 (01:55→21:34)
[2017-10-01] MEDS: NORepinephrine 8MG/250 ML (PMX 250 ML IV (04:03)
[2017-10-01 05:14] LABS: WHITE BLOOD COUNT 21.3 10^3/ul (4.8-10.8)
[2017-10-01 05:14] LABS: ADD MAN DIFF? NO; BASOPHILS % 0.1 % (0.0-2.0); EOSINOPHILS # 0.1 10^3/ul (0.0-0.5); EOSINOPHILS % 0.2 % (0.0-7.0); HEMATOCRIT 31.4 % (37.0-47.0); HEMOGLOBIN 9.8 g/dl (12.0-16.0); LYMPHOCYTES # 2.3 10^3/ul (0.8-2.9); MEAN CORPUSCULAR HEMOGLOBIN 28.1 pg (29.0-33.0); MEAN CORPUSCULAR HGB CONC 31.2 g/dl (32.0-37.0); MEAN PLATELET VOLUME 10.6 fl (7.4-10.4); MONOCYTE # 1.4 10^3/ul (0.3-0.9); MONOCYTES % 6.7 % (0.0-11.0); NEUTROPHIL # 17.2 10^3/ul (1.6-7.5); NEUTROPHILS % 81.1 % (39.0-77.0); PLATELET COUNT 121 10^3/UL (140-415); RED BLOOD COUNT 3.49 10^6/ul (4.20-5.40)
[2017-10-01 05:35] LABS: ALANINE AMINOTRANSFERASE 30 IU/L (13-69); ALBUMIN 2.3 g/dl (3.3-4.9); ALBUMIN/GLOBULIN RATIO 0.95; ALKALINE PHOSPHATASE 448 IU/L (42-121); ANION GAP 15 (8-16); ASPARTATE AMINO TRANSFERASE 33 IU/L (15-46); BILIRUBIN,INDIRECT 0.3 mg/dl (0-1.1); BILIRUBIN,TOTAL 0.3 mg/dl (0.2-1.3); BLOOD UREA NITROGEN 30 mg/dl (7-20); CALCIUM 10.1 mg/dl (8.4-10.2); CARBON DIOXIDE 23 mmol/L (21-31); CHLORIDE 104 mmol/L (97-110); CREATININE 0.62 mg/dl (0.44-1.00); GLUCOSE 91 mg/dl (70-220); POTASSIUM 3.7 mmol/L (3.5-5.1); SODIUM 138 mmol/L (135-144); TOTAL PROTEIN 4.7 g/dl (6.1-8.1)
[2017-10-01 05:50] LABS: PHOSPHORUS 4.7 mg/dl (2.5-4.9)
[2017-10-01 06:40] LABS: LIPASE 2293 U/L (23-300)
[2017-10-01] MEDS: LANSOPRAZOLE 30 MG CAP GTB (06:53)
[2017-10-01] MEDS: LEVOTHYROXINE 100 MCG TAB GTB (06:53)
[2017-10-01] MEDS: MULTIVIT/CA CARB/B CMPLX/FA TAB GTB (08:18)
[2017-10-01] MEDS: ASCORBIC ACID 250 MG TAB GTB (08:18)
[2017-10-01] MEDS: MIDODRINE 5 MG TAB GTB ×3 (08:18→18:05)
[2017-10-01] MEDS: SEVELAMER CARBONATE 0.8 GM PKT GTB ×3 (08:18→18:05)
[2017-10-01] MEDS: CASPOFUNGIN 50 MG in SOD CHLORIDE 0.9% 250 ML IVPB (08:19)
[2017-10-01] MEDS: COLLAGENASE 5 GM (UD JAR) TOP (08:19)
[2017-10-01] MEDS: NYSTATIN 30 GM POWDER BTL TOP ×2 (08:19→21:21)
[2017-10-01] MEDS: BALSAM PERU/CASTOR OIL 60 GM TUBE TOP ×2 (08:19→21:21)
[2017-10-01] MEDS: TIGECYCLINE 50 MG in SOD CHLORIDE 0.9% 100 ML IVPB ×2 (09:00→21:18)
[2017-10-01] MEDS: TPN 1,000 ML IV (15:33)
[2017-10-02] MEDS: ACCU-CHEK XX ×6 (00:46→21:00)
[2017-10-02] MEDS: ALBUTEROL HFA 8 GM INHALER INH ×6 (01:16→21:09)
[2017-10-02] MEDS: TPN 1,000 ML IV ×2 (04:17→12:34)
[2017-10-02 05:58] LABS: ANION GAP 15 (8-16); BLOOD UREA NITROGEN 36 mg/dl (7-20); CALCIUM 10.3 mg/dl (8.4-10.2); CARBON DIOXIDE 22 mmol/L (21-31); CHLORIDE 104 mmol/L (97-110); CREATININE 0.75 mg/dl (0.44-1.00); GLUCOSE 121 mg/dl (70-220); PHOSPHORUS 4.8 mg/dl (2.5-4.9); POTASSIUM 3.5 mmol/L (3.5-5.1); SODIUM 137 mmol/L (135-144)
[2017-10-02 06:02] LABS: VANCOMYCIN,RANDOM 21.3 ug/ml
[2017-10-02] MEDS: LANSOPRAZOLE 30 MG CAP GTB (06:42)
[2017-10-02] MEDS: LEVOTHYROXINE 100 MCG TAB GTB (06:42)
[2017-10-02] MEDS: MIDODRINE 5 MG TAB GTB ×3 (08:49→16:58)
[2017-10-02] MEDS: SEVELAMER CARBONATE 0.8 GM PKT GTB ×3 (08:49→16:57)
[2017-10-02] MEDS: MULTIVIT/CA CARB/B CMPLX/FA TAB GTB (08:49)
[2017-10-02] MEDS: ASCORBIC ACID 250 MG TAB GTB (08:49)
[2017-10-02] MEDS: NYSTATIN 30 GM POWDER BTL TOP ×2 (08:50→20:23)
[2017-10-02] MEDS: COLLAGENASE 5 GM (UD JAR) TOP (08:50)
[2017-10-02] MEDS: BALSAM PERU/CASTOR OIL 60 GM TUBE TOP ×2 (08:50→20:23)
[2017-10-02] MEDS: TIGECYCLINE 50 MG in SOD CHLORIDE 0.9% 100 ML IVPB ×2 (08:51→20:23)
[2017-10-02] MEDS: CASPOFUNGIN 50 MG in SOD CHLORIDE 0.9% 250 ML IVPB (09:45)
[2017-10-02 11:27] LABS: ADD MAN DIFF? NO
[2017-10-02 11:29] LABS: WHITE BLOOD COUNT 19.1 10^3/ul (4.8-10.8)
[2017-10-02 11:29] LABS: BASOPHILS % 0.2 % (0.0-2.0); EOSINOPHILS # 0.1 10^3/ul (0.0-0.5); EOSINOPHILS % 0.6 % (0.0-7.0); HEMATOCRIT 32.7 % (37.0-47.0); LYMPHOCYTES % 10.3 % (15.0-51.0); MEAN CORPUSCULAR HEMOGLOBIN 28.4 pg (29.0-33.0); MEAN CORPUSCULAR HGB CONC 30.6 g/dl (32.0-37.0); MEAN CORPUSCULAR VOLUME 92.9 fl (82.0-101.0); MEAN PLATELET VOLUME 10.5 fl (7.4-10.4); MONOCYTE # 1.1 10^3/ul (0.3-0.9); MONOCYTES % 5.9 % (0.0-11.0); NEUTROPHIL # 15.7 10^3/ul (1.6-7.5); NEUTROPHILS % 82.1 % (39.0-77.0); NUCLEATED RED BLOOD CELLS% 0.1 /100WBC (0.0-0.0); PLATELET COUNT 110 10^3/UL (140-415); RED BLOOD COUNT 3.52 10^6/ul (4.20-5.40); RED CELL DISTRIBUTION WIDTH 20.4 % (11.5-14.5)
[2017-10-02] MEDS: NORepinephrine 8MG/250 ML (PMX 250 ML IV (14:54)
[2017-10-03] MEDS: ALBUTEROL HFA 8 GM INHALER INH ×6 (01:22→21:21)
[2017-10-03] MEDS: ACCU-CHEK XX ×6 (01:40→21:29)
[2017-10-03] MEDS: morphine LIQ (10 MG/5 ML) CUP GTB (02:07)
[2017-10-03 05:51] LABS: ABNORMAL IP MESSAGE 1; HEMOGLOBIN 10.7 g/dl (12.0-16.0); MEAN CORPUSCULAR HEMOGLOBIN 27.8 pg (29.0-33.0); MEAN CORPUSCULAR HGB CONC 30.6 g/dl (32.0-37.0); MEAN CORPUSCULAR VOLUME 90.9 fl (82.0-101.0); MEAN PLATELET VOLUME 11.6 fl (7.4-10.4); PLATELET COUNT 115 10^3/UL (140-415); RED BLOOD COUNT 3.85 10^6/ul (4.20-5.40); RED CELL DISTRIBUTION WIDTH 20.8 % (11.5-14.5)
[2017-10-03 05:51] LABS: WHITE BLOOD COUNT 35.7 10^3/ul (4.8-10.8)
[2017-10-03 06:05] LABS: ALANINE AMINOTRANSFERASE 26 IU/L (13-69); ALBUMIN/GLOBULIN RATIO 0.83; ALKALINE PHOSPHATASE 464 IU/L (42-121); ANION GAP 13 (8-16); ASPARTATE AMINO TRANSFERASE 24 IU/L (15-46); BILIRUBIN,INDIRECT 0.4 mg/dl (0-1.1); BILIRUBIN,TOTAL 0.4 mg/dl (0.2-1.3); BLOOD UREA NITROGEN 45 mg/dl (7-20); CALCIUM 10.3 mg/dl (8.4-10.2); CARBON DIOXIDE 23 mmol/L (21-31); CHLORIDE 103 mmol/L (97-110); CREATININE 0.83 mg/dl (0.44-1.00); GLUCOSE 93 mg/dl (70-220); POTASSIUM 3.3 mmol/L (3.5-5.1); SODIUM 136 mmol/L (135-144); TOTAL PROTEIN 4.4 g/dl (6.1-8.1)
[2017-10-03 06:13] LABS: POSITIVE DIFF @See below
[2017-10-03 06:14] LABS: PHOSPHORUS 4.5 mg/dl (2.5-4.9)
[2017-10-03 06:14] LABS: ADD MAN DIFF? YES; MAGNESIUM 1.8 mg/dl (1.7-2.5)
[2017-10-03] MEDS: LANSOPRAZOLE 30 MG CAP GTB (07:01)
[2017-10-03] MEDS: SEVELAMER CARBONATE 0.8 GM PKT GTB ×3 (07:01→16:34)
[2017-10-03] MEDS: LEVOTHYROXINE 100 MCG TAB GTB (07:01)
[2017-10-03] MEDS: NYSTATIN 30 GM POWDER BTL TOP ×2 (07:53→20:16)
[2017-10-03] MEDS: COLLAGENASE 5 GM (UD JAR) TOP (07:53)
[2017-10-03] MEDS: BALSAM PERU/CASTOR OIL 60 GM TUBE TOP ×2 (07:53→20:17)
[2017-10-03] MEDS: ASCORBIC ACID 250 MG TAB GTB (07:57)
[2017-10-03] MEDS: MULTIVIT/CA CARB/B CMPLX/FA TAB GTB (07:57)
[2017-10-03] MEDS: MIDODRINE 5 MG TAB GTB ×3 (07:57→16:35)
[2017-10-03] MEDS: TIGECYCLINE 50 MG in SOD CHLORIDE 0.9% 100 ML IVPB ×2 (07:57→20:15)
[2017-10-03] MEDS: TPN 1,000 ML IV (08:50)
[2017-10-03 09:47] LABS: ANISOCYTOSIS 1+ (0-0); BAND NEUTROPHILS #M 0.7 10^3/ul (0.0-0.6); BAND NEUTROPHILS % (M) 2 % (0-4); GIANT THROMBO% (M) 1 % (0-0); LYMPHOCYTES #M 0.3 10^3/ul (0.8-2.9); LYMPHOCYTES % (M) 1 % (15-51); MONOCYTE #M 2.1 10^3/ul (0.3-0.9); MONOCYTES % (M) 6 % (0-11); PLATELET ESTIMATE DECREASED; POIKILOCYTOSIS 2+ (0-0); SEG NEUT #M 32.7 10^3/ul (1.6-7.5); SEGMENTED NEUTROPHILS (M) % 91 % (39-77); SMUDGE%M 15 % (0-0)
[2017-10-03] MEDS: POTASSIUM CHLORIDE 50 ML IVPB ×3 (12:35→14:47)
[2017-10-03] MEDS: HEPARIN 1000 UNITS/ML 10 ML INJ CATHETER (13:08)
[2017-10-03] MEDS: NORepinephrine 8MG/250 ML (PMX 250 ML IV (19:52)
[2017-10-03] MEDS: VANCOMYCIN 1 GM 250 ML IVPB (21:30)
[2017-10-04] MEDS: ACCU-CHEK XX ×4 (01:09→18:58)
[2017-10-04] MEDS: ALBUTEROL HFA 8 GM INHALER INH ×6 (01:31→19:36)
[2017-10-04] MEDS: TPN 1,000 ML IV ×2 (04:04→23:57)
[2017-10-04 05:24] LABS: ABNORMAL IP MESSAGE 1; HEMATOCRIT 36.9 % (37.0-47.0); HEMOGLOBIN 11.4 g/dl (12.0-16.0); MEAN CORPUSCULAR HEMOGLOBIN 28.6 pg (29.0-33.0); MEAN CORPUSCULAR HGB CONC 30.9 g/dl (32.0-37.0); MEAN CORPUSCULAR VOLUME 92.5 fl (82.0-101.0); MEAN PLATELET VOLUME 11.3 fl (7.4-10.4); PLATELET COUNT 110 10^3/UL (140-415); RED BLOOD COUNT 3.99 10^6/ul (4.20-5.40); RED CELL DISTRIBUTION WIDTH 20.4 % (11.5-14.5)
[2017-10-04 05:24] LABS: WHITE BLOOD COUNT 63.9 10^3/ul (4.8-10.8)
[2017-10-04 05:35] LABS: ADD MAN DIFF? YES; POSITIVE DIFF @See below
[2017-10-04 05:59] LABS: ALANINE AMINOTRANSFERASE 26 IU/L (13-69); ALBUMIN 2.1 g/dl (3.3-4.9); ALKALINE PHOSPHATASE 671 IU/L (42-121); AMYLASE 267 U/L (11-123); ASPARTATE AMINO TRANSFERASE 29 IU/L (15-46); BILIRUBIN,INDIRECT 0.5 mg/dl (0-1.1); BILIRUBIN,TOTAL 0.9 mg/dl (0.2-1.3); TOTAL PROTEIN 4.6 g/dl (6.1-8.1)
[2017-10-04 06:23] LABS: LIPASE 2277 U/L (23-300)
[2017-10-04] MEDS: NORepinephrine 8MG/250 ML (PMX 250 ML IV (06:31)
[2017-10-04] MEDS: LEVOTHYROXINE 100 MCG TAB GTB (06:32)
[2017-10-04] MEDS: LANSOPRAZOLE 30 MG CAP GTB (06:33)
[2017-10-04] MEDS: SEVELAMER CARBONATE 0.8 GM PKT GTB ×3 (06:35→16:57)
[2017-10-04 07:40] LABS: ANION GAP 16 (8-16); BLOOD UREA NITROGEN 42 mg/dl (7-20); CALCIUM 10.3 mg/dl (8.4-10.2); CARBON DIOXIDE 21 mmol/L (21-31); CHLORIDE 103 mmol/L (97-110); CREATININE 0.81 mg/dl (0.44-1.00); GLUCOSE 104 mg/dl (70-220); MAGNESIUM 1.8 mg/dl (1.7-2.5); PHOSPHORUS 3.7 mg/dl (2.5-4.9); POTASSIUM 4.1 mmol/L (3.5-5.1); SODIUM 136 mmol/L (135-144)
[2017-10-04 09:52] LABS: ANISOCYTOSIS 1+ (0-0); BAND NEUTROPHILS #M 3.8 10^3/ul (0.0-0.6); BAND NEUTROPHILS % (M) 6 % (0-4); GIANT THROMBO% (M) 1 % (0-0); MICROCYTOSIS 1+ (0-0); MYELOCYTES #M 1.2 10^3/ul (0.0-0.0); MYELOCYTES % (M) 2 % (0-0); PLATELET ESTIMATE DECREASED; POIKILOCYTOSIS 1+ (0-0); SEG NEUT #M 61.2 10^3/ul (1.6-7.5); SEGMENTED NEUTROPHILS (M) % 92 % (39-77); SMUDGE%M 10 % (0-0)
[2017-10-04] MEDS: MIDODRINE 5 MG TAB GTB ×3 (10:19→17:14)
[2017-10-04] MEDS: MULTIVIT/CA CARB/B CMPLX/FA TAB GTB (10:20)
[2017-10-04] MEDS: ASCORBIC ACID 250 MG TAB GTB (10:20)
[2017-10-04] MEDS: NYSTATIN 30 GM POWDER BTL TOP ×2 (10:20→21:17)
[2017-10-04] MEDS: COLLAGENASE 5 GM (UD JAR) TOP (10:21)
[2017-10-04] MEDS: TIGECYCLINE 50 MG in SOD CHLORIDE 0.9% 100 ML IVPB ×2 (10:21→21:18)
[2017-10-04] MEDS: BALSAM PERU/CASTOR OIL 60 GM TUBE TOP ×2 (10:21→21:18)
[2017-10-04] MEDS: ACETAMINOPHEN 650MG/20.3ML CUP GTB ×2 (11:29→17:13)
[2017-10-04] MEDS ORDERED: LIDOCAINE 1% (MDV) 10 ML INJ (17:08)
[2017-10-04] MEDS: TOBRAMYCIN 80 MG in SOD CHLORIDE 0.9% 50 ML IVPB (17:22)
[2017-10-04 18:35] LABS: FLUID AMYLASE 243 U/L; FLUID TYPE PARACENTESIS FLUID
[2017-10-04 19:31] LABS: LACTIC ACID 3.8 mmol/L (0.5-2.0)
[2017-10-04] MEDS: CASPOFUNGIN 70 MG in SOD CHLORIDE 0.9% 250 ML IVPB (19:49)
[2017-10-04] MEDS: metroNIDAZOLE 500 MG/NS (PMX) 100 ML IVPB (21:18)
[2017-10-04 22:53] LABS: LACTIC ACID 3.6 mmol/L (0.5-2.0)
[2017-10-05] MEDS: ACCU-CHEK XX ×4 (00:52→18:00)
[2017-10-05] MEDS: ALBUTEROL HFA 8 GM INHALER INH ×6 (01:35→20:07)
[2017-10-05] MEDS: metroNIDAZOLE 500 MG/NS (PMX) 100 ML IVPB (05:29)
[2017-10-05] MEDS: LANSOPRAZOLE 30 MG CAP GTB (05:58)
[2017-10-05] MEDS: LEVOTHYROXINE 100 MCG TAB GTB (05:58)
[2017-10-05 06:07] LABS: LACTIC ACID 3.6 mmol/L (0.5-2.0)
[2017-10-05 06:27] LABS: ANION GAP 15 (8-16); BLOOD UREA NITROGEN 48 mg/dl (7-20); CALCIUM 10.8 mg/dl (8.4-10.2); CARBON DIOXIDE 21 mmol/L (21-31); CHLORIDE 102 mmol/L (97-110); GLUCOSE 147 mg/dl (70-220); MAGNESIUM 1.6 mg/dl (1.7-2.5); PHOSPHORUS 3.2 mg/dl (2.5-4.9); SODIUM 134 mmol/L (135-144)
[2017-10-05 06:28] LABS: WHITE BLOOD COUNT 32.9 10^3/ul (4.8-10.8)
[2017-10-05 06:28] LABS: ABNORMAL IP MESSAGE 1; HEMATOCRIT 33.6 % (37.0-47.0); HEMOGLOBIN 10.1 g/dl (12.0-16.0); MEAN CORPUSCULAR HEMOGLOBIN 27.8 pg (29.0-33.0); MEAN CORPUSCULAR HGB CONC 30.1 g/dl (32.0-37.0); MEAN CORPUSCULAR VOLUME 92.6 fl (82.0-101.0); MEAN PLATELET VOLUME 12.5 fl (7.4-10.4); PLATELET COUNT 57 10^3/UL (140-415); RED BLOOD COUNT 3.63 10^6/ul (4.20-5.40); RED CELL DISTRIBUTION WIDTH 21.2 % (11.5-14.5)
[2017-10-05 06:29] LABS: POSITIVE DIFF @See below
[2017-10-05 06:30] LABS: ADD MAN DIFF? YES
[2017-10-05] MEDS: MULTIVIT/CA CARB/B CMPLX/FA TAB GTB (09:30)
[2017-10-05] MEDS: ASCORBIC ACID 250 MG TAB GTB (09:30)
[2017-10-05] MEDS: SEVELAMER CARBONATE 0.8 GM PKT GTB ×3 (09:31→17:21)
[2017-10-05] MEDS: TIGECYCLINE 50 MG in SOD CHLORIDE 0.9% 100 ML IVPB ×2 (09:32→20:51)
[2017-10-05] MEDS: BALSAM PERU/CASTOR OIL 60 GM TUBE TOP ×2 (09:32→20:52)
[2017-10-05] MEDS: NYSTATIN 30 GM POWDER BTL TOP ×2 (09:33→20:55)
[2017-10-05] MEDS: COLLAGENASE 5 GM (UD JAR) TOP (09:33)
[2017-10-05] MEDS: MIDODRINE 5 MG TAB GTB ×3 (09:36→17:21)
[2017-10-05] MEDS: ACETAMINOPHEN 650MG/20.3ML CUP GTB ×2 (09:52→19:53)
[2017-10-05 10:12] LABS: ANISOCYTOSIS 1+ (0-0); BAND NEUTROPHILS #M 3.6 10^3/ul (0.0-0.6); BAND NEUTROPHILS % (M) 11 % (0-4); LYMPHOCYTES #M 0.9 10^3/ul (0.8-2.9); LYMPHOCYTES % (M) 3 % (15-51); MONOCYTE #M 1.6 10^3/ul (0.3-0.9); MONOCYTES % (M) 5 % (0-11); PLATELET ESTIMATE INCREASED; POIKILOCYTOSIS 2+ (0-0); SEG NEUT #M 27.8 10^3/ul (1.6-7.5); SEGMENTED NEUTROPHILS (M) % 81 % (39-77); SMUDGE%M 29 % (0-0)
[2017-10-05] MEDS: MAGNESIUM SULFATE 1 GM/D5W 100 ML IVPB (12:02)
[2017-10-05] MEDS: COLISTIMETHATE 150 MG in SOD CHLORIDE 0.9% 100 ML IVPB ×2 (13:07→20:51)
[2017-10-05] MEDS: ALBUMIN HUMAN 25% 100 ML IV (16:49)
[2017-10-05] MEDS ORDERED: CASPOFUNGIN 50 MG in SOD CHLORIDE 0.9% 250 ML IVPB (18:30)
[2017-10-05] MEDS: TPN 1,000 ML IV (19:27)
[2017-10-05] MEDS: TOBRAMYCIN 80 MG in SOD CHLORIDE 0.9% 50 ML IVPB (19:27)
[2017-10-05] MEDS: HEPARIN 1000 UNITS/ML 10 ML INJ CATHETER (19:30)
[2017-10-06] MEDS: ACCU-CHEK XX ×5 (00:47→23:46)
[2017-10-06] MEDS: ALBUTEROL HFA 8 GM INHALER INH ×6 (01:23→20:13)
[2017-10-06 05:25] LABS: ADD MAN DIFF? NO
[2017-10-06 05:30] LABS: WHITE BLOOD COUNT 37.3 10^3/ul (4.8-10.8)
[2017-10-06 05:30] LABS: ABNORMAL IP MESSAGE 1; BASOPHIL # 0.1 10^3/ul (0.0-0.1); BASOPHILS % 0.2 % (0.0-2.0); EOSINOPHILS # 0.1 10^3/ul (0.0-0.5); EOSINOPHILS % 0.1 % (0.0-7.0); HEMATOCRIT 33.9 % (37.0-47.0); HEMOGLOBIN 10.2 g/dl (12.0-16.0); LYMPHOCYTES # 1.6 10^3/ul (0.8-2.9); LYMPHOCYTES % 4.3 % (15.0-51.0); MEAN CORPUSCULAR HEMOGLOBIN 28.1 pg (29.0-33.0); MEAN CORPUSCULAR HGB CONC 30.1 g/dl (32.0-37.0); MEAN CORPUSCULAR VOLUME 93.4 fl (82.0-101.0); MONOCYTE # 1.6 10^3/ul (0.3-0.9); MONOCYTES % 4.2 % (0.0-11.0); NEUTROPHIL # 33.3 10^3/ul (1.6-7.5); NEUTROPHILS % 89.3 % (39.0-77.0); NUCLEATED RED BLOOD CELLS% 0.1 /100WBC (0.0-0.0); PLATELET COUNT 40 10^3/UL (140-415); RED BLOOD COUNT 3.63 10^6/ul (4.20-5.40); RED CELL DISTRIBUTION WIDTH 21.3 % (11.5-14.5)
[2017-10-06 05:31] LABS: POSITIVE DIFF @See below
[2017-10-06 05:57] LABS: ANION GAP 15 (8-16); BLOOD UREA NITROGEN 35 mg/dl (7-20); CALCIUM 11.1 mg/dl (8.4-10.2); CARBON DIOXIDE 25 mmol/L (21-31); CHLORIDE 101 mmol/L (97-110); CREATININE 0.75 mg/dl (0.44-1.00); GLUCOSE 152 mg/dl (70-220); MAGNESIUM 1.8 mg/dl (1.7-2.5); PHOSPHORUS 2.3 mg/dl (2.5-4.9); POTASSIUM 3.6 mmol/L (3.5-5.1); SODIUM 137 mmol/L (135-144)
[2017-10-06 06:01] LABS: LACTIC ACID 2.7 mmol/L (0.5-2.0)
[2017-10-06] MEDS: LANSOPRAZOLE 30 MG CAP GTB (06:12)
[2017-10-06] MEDS: LEVOTHYROXINE 100 MCG TAB GTB (06:12)
[2017-10-06] MEDS: COLISTIMETHATE 150 MG in SOD CHLORIDE 0.9% 100 ML IVPB (09:48)
[2017-10-06] MEDS: ACETAMINOPHEN 650MG/20.3ML CUP GTB ×2 (09:49→16:54)
[2017-10-06] MEDS: TIGECYCLINE 50 MG in SOD CHLORIDE 0.9% 100 ML IVPB ×2 (09:49→20:42)
[2017-10-06] MEDS: COLLAGENASE 5 GM (UD JAR) TOP (09:50)
[2017-10-06] MEDS: ASCORBIC ACID 250 MG TAB GTB (09:50)
[2017-10-06] MEDS: BALSAM PERU/CASTOR OIL 60 GM TUBE TOP ×2 (09:50→20:44)
[2017-10-06] MEDS: SEVELAMER CARBONATE 0.8 GM PKT GTB ×3 (09:50→17:35)
[2017-10-06] MEDS: MIDODRINE 5 MG TAB GTB ×3 (09:50→16:54)
[2017-10-06] MEDS: NYSTATIN 30 GM POWDER BTL TOP ×2 (10:02→20:43)
[2017-10-06] MEDS: MULTIVIT/CA CARB/B CMPLX/FA TAB GTB (10:07)
[2017-10-06] MEDS: TPN 1,000 ML IV (13:46)
[2017-10-06] MEDS: EPOETIN 10000 UNITS/ML (NON ESRD/NON ONCOLOGY) SC (19:35)
[2017-10-07] MEDS: ALBUTEROL HFA 8 GM INHALER INH ×4 (01:04→13:32)
[2017-10-07] MEDS: ACCU-CHEK XX ×2 (05:43→11:47)
[2017-10-07 05:46] LABS: ANION GAP 11 (8-16); BLOOD UREA NITROGEN 41 mg/dl (7-20); CALCIUM 11.6 mg/dl (8.4-10.2); CARBON DIOXIDE 27 mmol/L (21-31); CHLORIDE 99 mmol/L (97-110); CREATININE 0.86 mg/dl (0.44-1.00); GLUCOSE 148 mg/dl (70-220); MAGNESIUM 1.7 mg/dl (1.7-2.5); PHOSPHORUS 2.3 mg/dl (2.5-4.9); POTASSIUM 3.8 mmol/L (3.5-5.1); SODIUM 133 mmol/L (135-144)
[2017-10-07 05:50] LABS: PREALBUMIN 3.9 mg/dl (17.6-36.0)
[2017-10-07] MEDS: SEVELAMER CARBONATE 0.8 GM PKT GTB ×2 (06:09→11:30)
[2017-10-07] MEDS: LEVOTHYROXINE 100 MCG TAB GTB (06:09)
[2017-10-07] MEDS: LANSOPRAZOLE 30 MG CAP GTB (06:09)
[2017-10-07 06:19] LABS: VANCOMYCIN,RANDOM 17.7 ug/ml
[2017-10-07] MEDS: MIDODRINE 5 MG TAB GTB ×2 (08:32→13:21)
[2017-10-07] MEDS: TIGECYCLINE 50 MG in SOD CHLORIDE 0.9% 100 ML IVPB (08:33)
[2017-10-07] MEDS: ASCORBIC ACID 250 MG TAB GTB (08:33)
[2017-10-07] MEDS: BALSAM PERU/CASTOR OIL 60 GM TUBE TOP (08:35)
[2017-10-07] MEDS: COLLAGENASE 5 GM (UD JAR) TOP (08:35)
[2017-10-07] MEDS: NYSTATIN 30 GM POWDER BTL TOP (08:35)
[2017-10-07] MEDS: MULTIVIT/CA CARB/B CMPLX/FA TAB GTB (08:37)
[2017-10-07] MEDS ORDERED: COLISTIMETHATE 150 MG in SOD CHLORIDE 0.9% 100 ML IVPB (09:00)
[2017-10-07] MEDS: POTASSIUM PHOSPHATE 15 MM in SOD CHLORIDE 0.9% 250 ML IV (14:32)
[2017-10-07] MEDS ORDERED: morphine (DRIP) 100 MG/100 ML 100 ML IV (16:30)
[2017-10-07] MEDS ORDERED: COLISTIMETHATE 100 MG in SOD CHLORIDE 0.9% 100 ML IVPB (17:00)
[2017-10-07] MEDS ORDERED: morphine 2 MG INJ IV (18:30)
[2017-10-08] MEDS ORDERED: VANCOMYCIN 1 GM 250 ML IVPB (06:00)
[2017-10-16 14:05] LABS: PROCALCITONIN 4.14 ng/mL (<0.10)
== END 2017-10-07 18:43 | disposition expired | DRG 811 ==
LOC: ICU 09-08 17:37 → E/R 15:48 → TEL 19:37
PROC: 0F798DZ Dilation of Common Bile Duct with Intraluminal Device, Via Natural or Artificial Opening Endoscopic (ICD-10-PCS; 2017-08-16 12:00)
PROC: 30233N1 Transfusion of Nonautologous Red Blood Cells into Peripheral Vein, Percutaneous Approach (ICD-10-PCS; principal; 2017-08-16 18:33)
PROC: 5A1955Z Respiratory Ventilation, Greater than 96 Consecutive Hours (ICD-10-PCS; 2017-08-16 18:33)
PROC: 5A1D70Z Performance of Urinary Filtration, Intermittent, Less than 6 Hours Per Day (ICD-10-PCS; 2017-08-16 18:33)
PROC: 05PYX3Z Removal of Infusion Device from Upper Vein, External Approach (ICD-10-PCS; 2017-08-16 18:33)
PROC: 02HV33Z Insertion of Infusion Device into Superior Vena Cava, Percutaneous Approach (ICD-10-PCS; 2017-08-16 18:33)
PROC: 06HY33Z Insertion of Infusion Device into Lower Vein, Percutaneous Approach (ICD-10-PCS; 2017-08-16 18:33)
PROC: 02H633Z Insertion of Infusion Device into Right Atrium, Percutaneous Approach (ICD-10-PCS; 2017-08-16 18:33)
PROC: 0W9G3ZX Drainage of Peritoneal Cavity, Percutaneous Approach, Diagnostic (ICD-10-PCS; 2017-08-16 18:33)
DX: D62 Acute posthemorrhagic anemia (principal); L89.323 Pressure ulcer of left buttock, stage 3; N18.6 End stage renal disease; I50.33 Acute on chronic diastolic (congestive) heart failure; J18.9 Pneumonia, unspecified organism; R65.21 Severe sepsis with septic shock; K85.10 Biliary acute pancreatitis without necrosis or infection; A41.59 Other Gram-negative sepsis; J15.1 Pneumonia due to Pseudomonas; G92 Toxic encephalopathy; L89.154 Pressure ulcer of sacral region, stage 4; J15.6 Pneumonia due to other Gram-negative bacteria; N17.9 Acute kidney failure, unspecified; I13.2 Hypertensive heart and chronic kidney disease with heart failure and with stage 5 chronic kidney disease, or end stage renal disease; T82.7XXA Infection and inflammatory reaction due to other cardiac and vascular devices, implants and grafts, initial encounter; G82.20 Paraplegia, unspecified; J96.11 Chronic respiratory failure with hypoxia; G72.81 Critical illness myopathy; G62.81 Critical illness polyneuropathy; R18.8 Other ascites; K83.0 Cholangitis; Z99.11 Dependence on respirator [ventilator] status; E11.22 Type 2 diabetes mellitus with diabetic chronic kidney disease; D63.1 Anemia in chronic kidney disease; K80.50 Calculus of bile duct without cholangitis or cholecystitis without obstruction; I27.20 Pulmonary hypertension, unspecified; E66.9 Obesity, unspecified; I48.0 Paroxysmal atrial fibrillation; K52.9 Noninfective gastroenteritis and colitis, unspecified; I25.10 Atherosclerotic heart disease of native coronary artery without angina pectoris; Y83.8 Other surgical procedures as the cause of abnormal reaction of the patient, or of later complication, without mention of misadventure at the time of the procedure; Z68.36 Body mass index [BMI] 36.0-36.9, adult; Z93.0 Tracheostomy status; Z79.811 Long term (current) use of aromatase inhibitors; Y92.238 Other place in hospital as the place of occurrence of the external cause; I07.1 Rheumatic tricuspid insufficiency; E83.39 Other disorders of phosphorus metabolism; Z93.1 Gastrostomy status; Z99.2 Dependence on renal dialysis; Z66 Do not resuscitate; Z16.24 Resistance to multiple antibiotics; Z51.5 Encounter for palliative care
CPT/HCPCS: 36415; 36430; 36569; 36600; 71045; 74176; 74181; 74330; 76604; 76700; 80048; 80053; 80076; 80202; 82150; 82270; 82803; 82962; 83605; 83690; 83735; 84100; 84134; 84145; 84443; 84478; 84484; 85025; 85610; 85730; 86704; 86709; 86803; 86850; 86900; 86901; 86920; 87040; 87070; 87075; 87081; 87102; 87116; 87340; 89220; 90935; 93005; 93970; 94002; 94003; 94640; 99291-25